=== PATIENT | female | born 1960 | race African-American/Black ===

== ENCOUNTER 2018-11-16 20:59 | Inpatient (IN) ==
[2018-11-17 01:23] LABS: Basophils # 0.1 10*3/uL (0.0-0.2); Basophils % 0.6 % (0.0-0.8); Eosinophils # 0.2 10*3/uL (0.0-0.87); Eosinophils % 1.9 % (0.00-10.9); Hematocrit 31.4 VOL% (35.7-47.0); Hemoglobin 9.2 GM/DL (12.0-16.0); Immature Granulocytes % 0.9 %; Immature Granulocytes Absolute 0.08 #; Lymphocytes # 1.3 10*3/uL (1.4-4.0); Lymphocytes % 14.1 % (21.3-54.2); Mean Corpuscular HGB Conc 29.3 GM/DL (32-36); Mean Corpuscular Volume 100.3 FL (87-102); Mean Platelet Volume 10.3 FL (9.6-12.0); Monocytes % 10.3 % (1.7-12.7); NRBC # 0.02 10*3/uL; Neutrophils % 72.2 % (38.7-73.9); Platelet Count 365 T/CUMM (130-400); Red Blood Count 3.13 MC/CUMM (3.8-5.5); Red Cell Distribution Width 16.8 % (9.3-17.3)
[2018-11-17 01:32] LABS: PT Patient Result 10.8 SECS; Partial Thromboplastin Time 28.2 SECS (0-40)
[2018-11-17 01:59] LABS: Albumin 2.8 G/DL (3.4-5.0); Bilirubin,Total 0.4 MG/DL (0.2-1.0); Calcium 8.6 MG/DL (8.5-10.1); Osmolality,Calculated 292.3 MOS/KG (273-304)
[2018-11-17] MEDS ORDERED: ONDANSETRON 4 MG/2 ML VIAL IV PRN (04:06)
[2018-11-17] MEDS ORDERED: NICOTINE 21 MG/24 HR PATCH TRANSDERM PRN (04:06)
[2018-11-17] MEDS ORDERED: diphenhydrAMINE CAP 25 MG CAPSULE PO PRN (04:06)
[2018-11-17] MEDS ORDERED: DEXTROSE 50% 25 GM/50 ML VIAL IV PRN (05:51)
[2018-11-17] MEDS ORDERED: GLUCAGON 1 MG VIAL IM PRN (05:51)
[2018-11-17] MEDS: VANCOMYCIN INJ 1,500 MG in SODIUM CHLORIDE 0.9% 500 ML IV SCH (06:40)
[2018-11-17] MEDS: CARVEDILOL 25 MG TABLET PO SCH ×3 (08:48→20:38)
[2018-11-17] MEDS: FERROUS SULFATE 325 MG TABLET PO SCH ×2 (08:48→20:35)
[2018-11-17] MEDS: ISOSORBIDE MONONITRATE 30 MG TABLET PO SCH (08:48)
[2018-11-17] MEDS: INSULIN REGULAR 100 UNIT/ML SUBCUT SCH ×4 (08:49→20:35)
[2018-11-17] MEDS ORDERED: POTASSIUM CHLORIDE 20 MEQ TABLET PO SCH (09:00)
[2018-11-17] MEDS ORDERED: LISINOPRIL 20 MG TABLET PO SCH (09:00)
[2018-11-17] MEDS ORDERED: ALLOPURINOL 100 MG TABLET PO SCH (09:00)
[2018-11-17] MEDS: traMADol 50 MG TABLET PO PRN (11:43)
[2018-11-17] MEDS ORDERED: SODIUM CHLORIDE 0.45% 500 ML IV ONE (13:54)
[2018-11-17] MEDS: ATORVASTATIN 80 MG TABLET PO SCH (20:35)
[2018-11-17] MEDS ORDERED: INSULIN GLARGINE 100 UNIT/ML SUBCUT SCH (21:00)
[2018-11-18 05:13] LABS: Basophils % 0.4 % (0.0-0.8); Eosinophils # 0.2 10*3/uL (0.0-0.87); Eosinophils % 2.1 % (0.00-10.9); Hematocrit 19.9 VOL% (35.7-47.0); Immature Granulocytes % 0.8 %; Immature Granulocytes Absolute 0.08 #; Lymphocytes # 1.7 10*3/uL (1.4-4.0); Lymphocytes % 17.7 % (21.3-54.2); Mean Corpuscular HGB Conc 28.6 GM/DL (32-36); Mean Platelet Volume 9.8 FL (9.6-12.0); Monocytes % 11.3 % (1.7-12.7); NRBC # 0.02 10*3/uL; Neutrophils % 67.7 % (38.7-73.9); Platelet Count 380 T/CUMM (130-400); Red Blood Count 1.97 MC/CUMM (3.8-5.5); Red Cell Distribution Width 17.1 % (9.3-17.3); White Blood Count 9.5 T/CUMM (4-12)
[2018-11-18 05:27] LABS: Hemoglobin 5.7 GM/DL (12.0-16.0)
[2018-11-18 05:46] LABS: Albumin 2.2 G/DL (3.4-5.0); Bilirubin,Total 0.9 MG/DL (0.2-1.0); Calcium 8.4 MG/DL (8.5-10.1); Osmolality,Calculated 286.3 MOS/KG (273-304); Total Protein 7.4 G/DL (6.4-8.3)
[2018-11-18 06:43] LABS: Hypochromasia 1+
[2018-11-18 06:44] LABS: Platelet Estimate Adequate
[2018-11-18 06:52] LABS: Hematocrit 20.3 VOL% (35.7-47.0)
[2018-11-18] MEDS: VANCOMYCIN INJ 1,500 MG in SODIUM CHLORIDE 0.9% 500 ML IV SCH (07:02)
[2018-11-18] MEDS ORDERED: SODIUM CHLORIDE 0.9% 1,000 ML IV PRN (07:46)
[2018-11-18] MEDS: INSULIN REGULAR 100 UNIT/ML SUBCUT SCH ×4 (08:26→20:47)
[2018-11-18] MEDS: CARVEDILOL 25 MG TABLET PO SCH ×2 (08:26→20:41)
[2018-11-18] MEDS: ISOSORBIDE MONONITRATE 30 MG TABLET PO SCH (08:26)
[2018-11-18] MEDS: FERROUS SULFATE 325 MG TABLET PO SCH ×2 (08:27→20:41)
[2018-11-18] MEDS ORDERED: cefTRIAXone 1,000 MG in SYRINGE 1 EACH IV SCH (14:00)
[2018-11-18] MEDS ORDERED: SODIUM CHLORIDE 0.9% 250 ML IV ONE (14:37)
[2018-11-18] MEDS ORDERED: ENOXAPARIN 40 MG/0.4 ML SYRINGE SUBCUT SCH (15:00)
[2018-11-18] MEDS: traMADol 50 MG TABLET PO PRN (20:41)
[2018-11-18] MEDS: ATORVASTATIN 80 MG TABLET PO SCH (20:41)
[2018-11-18] MEDS ORDERED: SERTRALINE 25 MG TABLET PO SCH (21:00)
[2018-11-19 03:53] LABS: Basophils # 0.1 10*3/uL (0.0-0.2); Basophils % 0.7 % (0.0-0.8); Eosinophils # 0.3 10*3/uL (0.0-0.87); Eosinophils % 2.8 % (0.00-10.9); Hematocrit 26.7 VOL% (35.7-47.0); Immature Granulocytes % 1.5 %; Immature Granulocytes Absolute 0.16 #; Lymphocytes # 1.5 10*3/uL (1.4-4.0); Lymphocytes % 13.8 % (21.3-54.2); Mean Corpuscular Volume 97.1 FL (87-102); Mean Platelet Volume 10.5 FL (9.6-12.0); Monocytes % 9.4 % (1.7-12.7); NRBC # 0.06 10*3/uL; Neutrophils % 71.8 % (38.7-73.9); Platelet Count 390 T/CUMM (130-400); Red Blood Count 2.75 MC/CUMM (3.8-5.5); Red Cell Distribution Width 17.9 % (9.3-17.3); White Blood Count 10.7 T/CUMM (4-12)
[2018-11-19 04:08] LABS: Calcium 8.6 MG/DL (8.5-10.1); Osmolality,Calculated 283.4 MOS/KG (273-304)
[2018-11-19] MEDS: INSULIN REGULAR 100 UNIT/ML SUBCUT SCH ×2 (09:09→12:41)
[2018-11-19] MEDS: ISOSORBIDE MONONITRATE 30 MG TABLET PO SCH (09:33)
[2018-11-19] MEDS: FERROUS SULFATE 325 MG TABLET PO SCH (09:34)
[2018-11-19] MEDS: CARVEDILOL 25 MG TABLET PO SCH (09:34)
[2018-11-19] MEDS: traMADol 50 MG TABLET PO PRN (09:34)
[2018-11-19 12:13] VITALS: BP 149/86
== END 2018-11-19 13:09 | disposition home or self-care (01) | DRG 603 ==
LOC: N.EDINP 20:59 → N.ED 20:59 → N.5E 11-17 04:29
PROVIDERS: ADMIT Internal Medicine; ATTEND Internal Medicine

== ENCOUNTER 2019-09-17 16:08 | Observation (INO) ==
[2019-09-17] MEDS ORDERED: ONDANSETRON 4 MG/2 ML VIAL IV STA (16:34)
[2019-09-17] MEDS ORDERED: FUROSEMIDE 40 MG/4 ML VIAL IV STA ×2 (16:34→16:42)
[2019-09-17] MEDS ORDERED: ALBUTEROL/IPRATROPIUM 3 ML NEB RESP TX STA (16:34)
[2019-09-17 16:57] LABS: Alanine Aminotransferase 41 U/L (13-56); Albumin 2.5 G/DL (3.4-5.0); Alkaline Phosphatase 214 U/L (45-117); Aspartate Amino Transferase 25 U/L (0-37); Bilirubin,Total < 0.39 MG/DL (0.2-1.0); Blood Urea Nitrogen 31 MG/DL (7-18); Calcium 8.4 MG/DL (8.5-10.1); Estimated Glom Filtration Rate 45 ML/MIN; Glucose 257 MG/DL (74-106); Osmolality,Calculated 296.3 MOS/KG (273-304); Total Protein 6.9 G/DL (6.4-8.3)
[2019-09-17] MEDS ORDERED: NITROGLYCERIN 2% OINT 1 INCH/GM PACK TOP STA (17:02)
[2019-09-17 17:19] LABS: Troponin I 0.109 NG/ML (0.00-0.045)
[2019-09-17] MEDS ORDERED: hydrALAZINE 20 MG/1 ML VIAL IV STA (17:44)
[2019-09-17 18:01] LABS: Basophils % 0.3 % (0.0-0.8); Eosinophils # 0.1 10*3/uL (0.0-0.87); Eosinophils % 1.4 % (0.00-10.9); Hematocrit 29.4 VOL% (35.7-47.0); Hemoglobin 8.9 GM/DL (12.0-16.0); Immature Granulocytes % 0.4 %; Immature Granulocytes Absolute 0.04 #; Lymphocytes # 1.4 10*3/uL (1.4-4.0); Lymphocytes % 14.5 % (21.3-54.2); Mean Corpuscular HGB Conc 30.3 GM/DL (32-36); Mean Corpuscular Volume 103.2 FL (87-102); Mean Platelet Volume 11.3 FL (9.6-12.0); Monocytes % 5.4 % (1.7-12.7); Platelet Count 220 T/CUMM (130-400); Red Blood Count 2.85 MC/CUMM (3.8-5.5); Red Cell Distribution Width 13.1 % (9.3-17.3); White Blood Count 9.6 T/CUMM (4-12)
[2019-09-17 18:11] LABS: INR 0.9; PT Patient Result 10.3 SECS (9.6-12.2)
[2019-09-17] MEDS ORDERED: ONDANSETRON 4 MG/2 ML VIAL IV PRN (18:17)
[2019-09-17] MEDS ORDERED: ACETAMINOPHEN 500 MG TABLET PO PRN (18:17)
[2019-09-17] MEDS ORDERED: GLUCAGON 1 MG VIAL IM PRN (18:17)
[2019-09-17] MEDS ORDERED: DEXTROSE 10% 250 ML BAG IV PRN (18:17)
[2019-09-17 19:06] LABS: Apearance,Urine CLEAR (Clear); Bilirubin,Urine Negative (Negative); Blood, Urine Small mg/dL (Negative); Glucose,Urine (UA) 150 mg/dL (Negative); Hyaline Casts,Urine 1 /LPF (0-3); Ketones,Urine Negative (Negative); Nitrite,Urine Negative (Negative); Protein,Urine 100 MG/DL; RBC,Urine 9 /HPF (0-4); Urine Color Straw (Yellow); Urine Urobilinogen < 2.0 EU/DL (0.2-1.0); WBC,Urine 1 /HPF (0-6)
[2019-09-17] MEDS: ALBUTEROL/IPRATROPIUM 3 ML NEB RESP TX SCH (19:47)
[2019-09-17] MEDS: POTASSIUM CHLORIDE 20 MEQ TABLET PO SCH (21:34)
[2019-09-17] MEDS: INSULIN REGULAR 100 UNIT/ML SUBCUT SCH (21:34)
[2019-09-17] MEDS: carvediloL 25 MG TABLET PO SCH (21:34)
[2019-09-17] MEDS: MAGNESIUM OXIDE 400 MG TABLET PO SCH (21:34)
[2019-09-17] MEDS: FERROUS SULFATE 325 MG TABLET PO SCH (21:34)
[2019-09-17] MEDS: ATORVASTATIN 80 MG TABLET PO SCH (21:34)
[2019-09-17 22:50] LABS: Barbiturates Screen,Urine Negative (Negative); Benzodiazepines Screen,Urine Negative (Negative); Cannabinoid Screen,Urine Negative (Negative); Opiate Screen,Urine Negative (Negative); Phencyclidine Screen,Urine Negative (Negative)
[2019-09-18] MEDS: NITROGLYCERIN 2% OINT 1 INCH/GM PACK TOP SCH ×4 (00:06→18:22)
[2019-09-18] MEDS: ALBUTEROL/IPRATROPIUM 3 ML NEB RESP TX SCH ×4 (00:22→20:57)
[2019-09-18 05:57] LABS: Blood Urea Nitrogen 34 MG/DL (7-18); Calcium 8.2 MG/DL (8.5-10.1); Estimated Glom Filtration Rate 41 ML/MIN; Glucose 172 MG/DL (74-106)
[2019-09-18 06:04] LABS: Troponin I 0.109 NG/ML (0.00-0.045)
[2019-09-18] MEDS: carvediloL 25 MG TABLET PO SCH ×2 (08:15→16:59)
[2019-09-18] MEDS: sitaGLIPtin 100 MG TABLET PO SCH (08:16)
[2019-09-18] MEDS: lisinopriL 20 MG TABLET PO SCH (08:16)
[2019-09-18] MEDS: PANTOPRAZOLE 40 MG TABLET PO SCH (08:16)
[2019-09-18] MEDS: allopurinoL 100 MG TABLET PO SCH (08:17)
[2019-09-18] MEDS: POTASSIUM CHLORIDE 20 MEQ TABLET PO SCH ×2 (08:17→21:20)
[2019-09-18] MEDS: ASPIRIN EC 81 MG TABLET PO SCH (08:17)
[2019-09-18] MEDS: MAGNESIUM OXIDE 400 MG TABLET PO SCH ×2 (08:17→21:19)
[2019-09-18] MEDS: FERROUS SULFATE 325 MG TABLET PO SCH ×2 (08:17→21:19)
[2019-09-18] MEDS: INSULIN REGULAR 100 UNIT/ML SUBCUT SCH ×4 (08:18→21:20)
[2019-09-18] MEDS: INSULIN GLARGINE 100 UNIT/ML SUBCUT SCH (08:18)
[2019-09-18] MEDS: FUROSEMIDE 40 MG/4 ML VIAL IV SCH ×2 (08:18→16:55)
[2019-09-18] MEDS: ISOSORBIDE MONONITRATE 30 MG TABLET PO SCH (09:09)
[2019-09-18] MEDS: ATORVASTATIN 80 MG TABLET PO SCH (21:19)
[2019-09-19] MEDS: NITROGLYCERIN 2% OINT 1 INCH/GM PACK TOP SCH ×4 (01:08→18:24)
[2019-09-19] MEDS: ALBUTEROL/IPRATROPIUM 3 ML NEB RESP TX SCH ×4 (01:59→20:12)
[2019-09-19 04:21] LABS: Calcium 8.3 MG/DL (8.5-10.1); Osmolality,Calculated 296.8 MOS/KG (273-304)
[2019-09-19] MEDS: INSULIN REGULAR 100 UNIT/ML SUBCUT SCH ×4 (08:01→20:44)
[2019-09-19] MEDS: lisinopriL 20 MG TABLET PO SCH (08:44)
[2019-09-19] MEDS: FUROSEMIDE 40 MG/4 ML VIAL IV SCH (08:44)
[2019-09-19] MEDS: FERROUS SULFATE 325 MG TABLET PO SCH ×2 (08:45→20:41)
[2019-09-19] MEDS: carvediloL 25 MG TABLET PO SCH ×2 (08:45→17:35)
[2019-09-19] MEDS: ISOSORBIDE MONONITRATE 30 MG TABLET PO SCH (08:45)
[2019-09-19] MEDS: MAGNESIUM OXIDE 400 MG TABLET PO SCH ×2 (08:45→20:41)
[2019-09-19] MEDS: allopurinoL 100 MG TABLET PO SCH (08:45)
[2019-09-19] MEDS: PANTOPRAZOLE 40 MG TABLET PO SCH (08:45)
[2019-09-19] MEDS: ASPIRIN EC 81 MG TABLET PO SCH (08:45)
[2019-09-19] MEDS: sitaGLIPtin 100 MG TABLET PO SCH (08:45)
[2019-09-19] MEDS: POTASSIUM CHLORIDE 20 MEQ TABLET PO SCH ×2 (08:45→20:41)
[2019-09-19] MEDS: INSULIN GLARGINE 100 UNIT/ML SUBCUT SCH (13:13)
[2019-09-19] MEDS: ATORVASTATIN 80 MG TABLET PO SCH (20:41)
[2019-09-20] MEDS: ALBUTEROL/IPRATROPIUM 3 ML NEB RESP TX SCH ×3 (01:09→14:24)
[2019-09-20 04:18] LABS: Basophils % 0.4 % (0.0-0.8); Eosinophils # 0.2 10*3/uL (0.0-0.87); Eosinophils % 2.6 % (0.00-10.9); Hematocrit 27.6 VOL% (35.7-47.0); Hemoglobin 8.4 GM/DL (12.0-16.0); Immature Granulocytes % 0.3 %; Immature Granulocytes Absolute 0.02 #; Lymphocytes # 1.8 10*3/uL (1.4-4.0); Lymphocytes % 23.7 % (21.3-54.2); Mean Corpuscular HGB Conc 30.4 GM/DL (32-36); Mean Platelet Volume 11.7 FL (9.6-12.0); Monocytes % 8.2 % (1.7-12.7); Neutrophils % 64.8 % (38.7-73.9); Platelet Count 213 T/CUMM (130-400); Red Blood Count 2.68 MC/CUMM (3.8-5.5); Red Cell Distribution Width 13.3 % (9.3-17.3); White Blood Count 7.7 T/CUMM (4-12)
[2019-09-20 04:38] LABS: Calcium 8.6 MG/DL (8.5-10.1); Osmolality,Calculated 293.1 MOS/KG (273-304)
[2019-09-20] MEDS: NITROGLYCERIN 2% OINT 1 INCH/GM PACK TOP SCH ×2 (06:06)
[2019-09-20] MEDS: INSULIN REGULAR 100 UNIT/ML SUBCUT SCH ×2 (07:57→11:42)
[2019-09-20] MEDS ORDERED: NITROGLYCERIN SL 0.4 MG TABLET SL PRN (08:48)
[2019-09-20] MEDS: MAGNESIUM OXIDE 400 MG TABLET PO SCH (08:57)
[2019-09-20] MEDS: POTASSIUM CHLORIDE 20 MEQ TABLET PO SCH (08:57)
[2019-09-20] MEDS: ISOSORBIDE MONONITRATE 30 MG TABLET PO SCH (08:57)
[2019-09-20] MEDS: lisinopriL 20 MG TABLET PO SCH (08:57)
[2019-09-20] MEDS: PANTOPRAZOLE 40 MG TABLET PO SCH (08:57)
[2019-09-20] MEDS: sitaGLIPtin 100 MG TABLET PO SCH (08:57)
[2019-09-20] MEDS: ASPIRIN EC 81 MG TABLET PO SCH (08:57)
[2019-09-20] MEDS: INSULIN GLARGINE 100 UNIT/ML SUBCUT SCH (08:58)
[2019-09-20] MEDS: carvediloL 25 MG TABLET PO SCH (08:58)
[2019-09-20] MEDS: FERROUS SULFATE 325 MG TABLET PO SCH (08:58)
[2019-09-20] MEDS: allopurinoL 100 MG TABLET PO SCH (08:58)
[2019-09-20] MEDS ORDERED: FUROSEMIDE 40 MG TABLET PO SCH (09:00)
[2019-09-20] MEDS ORDERED: hydrALAZINE 25 MG TABLET PO SCH (09:46)
[2019-09-20 16:00] VITALS: BP 168/74
== END 2019-09-20 15:46 | disposition home or self-care (01) ==
LOC: N.EDINP 16:08 → N.ED 16:08 → N.TELES 20:10
PROVIDERS: ADMIT Family Medicine; ATTEND Family Medicine

== ENCOUNTER 2019-12-22 12:34 | Observation (INO) ==
[2019-12-22] MEDS ORDERED: FUROSEMIDE 40 MG/4 ML VIAL IV STA (13:18)
[2019-12-22] MEDS ORDERED: amLODIPine 5 MG TABLET PO STA (14:07)
[2019-12-22 14:09] LABS: Basophils # 0.1 10*3/uL (0.0-0.2); Basophils % 0.6 % (0.0-0.8); Eosinophils # 0.2 10*3/uL (0.0-0.87); Eosinophils % 2.4 % (0.00-10.9); Hematocrit 35.3 VOL% (35.7-47.0); Hemoglobin 10.9 GM/DL (12.0-16.0); Immature Granulocytes % 0.4 %; Immature Granulocytes Absolute 0.04 #; Lymphocytes # 1.1 10*3/uL (1.4-4.0); Lymphocytes % 11.4 % (21.3-54.2); Mean Corpuscular HGB Conc 30.9 GM/DL (32-36); Mean Platelet Volume 11.4 FL (9.6-12.0); Monocytes % 5.5 % (1.7-12.7); Neutrophils % 79.7 % (38.7-73.9); Platelet Count 293 T/CUMM (130-400); Red Blood Count 3.53 MC/CUMM (3.8-5.5); Red Cell Distribution Width 13.9 % (9.3-17.3); White Blood Count 9.5 T/CUMM (4-12)
[2019-12-22] MEDS ORDERED: DEXTROSE 10% 250 ML BAG IV PRN ×2 (14:09→16:29)
[2019-12-22] MEDS ORDERED: GLUCAGON 1 MG VIAL IM PRN (14:09)
[2019-12-22] MEDS ORDERED: ONDANSETRON 4 MG/2 ML VIAL IV PRN (14:09)
[2019-12-22] MEDS ORDERED: ACETAMINOPHEN 325 MG TABLET PO PRN (14:09)
[2019-12-22 14:50] LABS: Albumin 2.4 G/DL (3.4-5.0); Bilirubin,Total 0.4 MG/DL (0.2-1.0); Osmolality,Calculated 295.5 MOS/KG (273-304); Total Protein 6.9 G/DL (6.4-8.3)
[2019-12-22] MEDS ORDERED: hydrALAZINE 20 MG/1 ML VIAL IV ONE (16:09)
[2019-12-22] MEDS ORDERED: NITROGLYCERIN SL 0.4 MG TABLET SL PRN (16:27)
[2019-12-22] MEDS ORDERED: hydrALAZINE 20 MG/1 ML VIAL IV PRN (16:28)
[2019-12-22] MEDS ORDERED: traMADol 50 MG TABLET PO PRN (16:28)
[2019-12-22] MEDS ORDERED: MAGNESIUM SULF RIDER 2 GM in PREMIX 1 EACH IV PRN (16:29)
[2019-12-22] MEDS ORDERED: POTASSIUM CHLORIDE RIDER 10 MEQ in PREMIX 1 EACH IV PRN (16:29)
[2019-12-22] MEDS ORDERED: POTASSIUM CHLORIDE 20 MEQ TABLET PO PRN (16:29)
[2019-12-22] MEDS ORDERED: MAGNESIUM SULF RIDER 4 GM in PREMIX 1 EACH IV PRN (16:29)
[2019-12-22] MEDS: INSULIN REGULAR 100 UNIT/ML SUBCUT SCH ×2 (16:30→21:59)
[2019-12-22] MEDS: hydrALAZINE 25 MG TABLET PO SCH (21:58)
[2019-12-22] MEDS: DOCUSATE SODIUM 100 MG CAPSULE PO SCH (21:58)
[2019-12-22] MEDS: NON-FORMULARY MEDICATION (Isosorbide Mononitrate 10 MG) PO SCH (21:59)
[2019-12-22] MEDS: FUROSEMIDE 40 MG/4 ML VIAL IV SCH (21:59)
[2019-12-22] MEDS: carvediloL 25 MG TABLET PO SCH (21:59)
[2019-12-22] MEDS: ATORVASTATIN 80 MG TABLET PO SCH (22:00)
[2019-12-22] MEDS: MAGNESIUM OXIDE 400 MG TABLET PO SCH (22:00)
[2019-12-23 04:43] LABS: Apearance,Urine CLEAR (Clear); Bacteria,Urine Many /HPF (Few); Bilirubin,Urine Negative (Negative); Blood, Urine Small mg/dL (Negative); Glucose,Urine (UA) >=500 mg/dL (Negative); Hyaline Casts,Urine 3 /LPF (0-3); Ketones,Urine Negative (Negative); Mucus,Urine Occasional /LPF (Occasional); Nitrite,Urine Negative (Negative); Protein,Urine >=500 MG/DL; RBC,Urine 6 /HPF (0-4); Squamous Epithelial Cell,Urine Occasional /HPF (0-10); Urine Color Yellow (Yellow); Urine Specific Gravity 1.009 (1.001-1.035); Urine Urobilinogen < 2.0 EU/DL (0.2-1.0); WBC,Urine 1 /HPF (0-6)
[2019-12-23 04:45] LABS: Basophils # 0.1 10*3/uL (0.0-0.2); Basophils % 0.7 % (0.0-0.8); Eosinophils # 0.2 10*3/uL (0.0-0.87); Eosinophils % 2.7 % (0.00-10.9); Hematocrit 27.8 VOL% (35.7-47.0); Hemoglobin 8.5 GM/DL (12.0-16.0); Immature Granulocytes % 0.4 %; Immature Granulocytes Absolute 0.03 #; Mean Corpuscular HGB Conc 30.6 GM/DL (32-36); Mean Corpuscular Volume 101.1 FL (87-102); Mean Platelet Volume 11.7 FL (9.6-12.0); Monocytes % 8.4 % (1.7-12.7); Neutrophils % 74.8 % (38.7-73.9); Platelet Count 240 T/CUMM (130-400); Red Blood Count 2.75 MC/CUMM (3.8-5.5); White Blood Count 7.6 T/CUMM (4-12)
[2019-12-23 05:12] LABS: Calcium 7.7 MG/DL (8.5-10.1); Osmolality,Calculated 296.1 MOS/KG (273-304); Thyroid Stimulating Hormone 2.46 uIU/ml (0.358-3.74)
[2019-12-23] MEDS: THYROID 60 MG TABLET PO SCH (06:38)
[2019-12-23] MEDS: INSULIN GLARGINE 100 UNIT/ML SUBCUT SCH (09:03)
[2019-12-23] MEDS: FUROSEMIDE 40 MG/4 ML VIAL IV SCH ×2 (09:03→22:04)
[2019-12-23] MEDS: INSULIN REGULAR 100 UNIT/ML SUBCUT SCH ×4 (09:03→22:03)
[2019-12-23] MEDS: hydrALAZINE 25 MG TABLET PO SCH ×3 (09:04→22:03)
[2019-12-23] MEDS: NON-FORMULARY MEDICATION (Isosorbide Mononitrate 10 MG) PO SCH (09:04)
[2019-12-23] MEDS: MAGNESIUM OXIDE 400 MG TABLET PO SCH ×2 (09:05→22:03)
[2019-12-23] MEDS: allopurinoL 100 MG TABLET PO SCH (09:05)
[2019-12-23] MEDS: DOCUSATE SODIUM 100 MG CAPSULE PO SCH ×2 (09:05→22:03)
[2019-12-23] MEDS: sitaGLIPtin 25 MG TABLET PO SCH (09:05)
[2019-12-23] MEDS: PANTOPRAZOLE 40 MG TABLET PO SCH (09:05)
[2019-12-23] MEDS: carvediloL 25 MG TABLET PO SCH ×2 (09:05→22:03)
[2019-12-23] MEDS ORDERED: MAGNESIUM SULF RIDER 2 GM in PREMIX 1 EACH IV ONE (09:57)
[2019-12-23] MEDS ORDERED: POTASSIUM CHLORIDE 20 MEQ TABLET PO ONE (09:57)
[2019-12-23] MEDS: ASPIRIN EC 81 MG TABLET PO SCH (13:43)
[2019-12-23] MEDS: ISOSORBIDE MONONITRATE 20 MG TABLET PO SCH (16:44)
[2019-12-23 16:48] LABS: Hematocrit 28.4 VOL% (35.7-47.0); Hemoglobin 8.6 GM/DL (12.0-16.0)
[2019-12-23] MEDS: ATORVASTATIN 80 MG TABLET PO SCH (22:03)
[2019-12-24 06:31] LABS: Total Protein (Chem) 5.9 G/DL (6.4-8.3)
[2019-12-24] MEDS: THYROID 60 MG TABLET PO SCH (06:45)
[2019-12-24 07:45] LABS: Basophils % 0.4 % (0.0-0.8); Eosinophils # 0.3 10*3/uL (0.0-0.87); Eosinophils % 4.2 % (0.00-10.9); Hematocrit 28.2 VOL% (35.7-47.0); Hemoglobin 8.3 GM/DL (12.0-16.0); Immature Granulocytes % 0.4 %; Immature Granulocytes Absolute 0.03 #; Lymphocytes # 1.2 10*3/uL (1.4-4.0); Lymphocytes % 15.4 % (21.3-54.2); Mean Corpuscular HGB Conc 29.4 GM/DL (32-36); Mean Corpuscular Volume 102.9 FL (87-102); Mean Platelet Volume 11.7 FL (9.6-12.0); Neutrophils % 71.6 % (38.7-73.9); Platelet Count 231 T/CUMM (130-400); Red Blood Count 2.74 MC/CUMM (3.8-5.5); Red Cell Distribution Width 14.3 % (9.3-17.3); White Blood Count 7.7 T/CUMM (4-12)
[2019-12-24] MEDS: INSULIN GLARGINE 100 UNIT/ML SUBCUT SCH (08:24)
[2019-12-24] MEDS: INSULIN REGULAR 100 UNIT/ML SUBCUT SCH ×2 (08:25→11:34)
[2019-12-24] MEDS: MAGNESIUM OXIDE 400 MG TABLET PO SCH (08:25)
[2019-12-24] MEDS: DOCUSATE SODIUM 100 MG CAPSULE PO SCH (08:25)
[2019-12-24] MEDS: PANTOPRAZOLE 40 MG TABLET PO SCH (08:25)
[2019-12-24] MEDS: allopurinoL 100 MG TABLET PO SCH (08:25)
[2019-12-24] MEDS: ISOSORBIDE MONONITRATE 20 MG TABLET PO SCH (08:25)
[2019-12-24] MEDS: sitaGLIPtin 25 MG TABLET PO SCH (08:25)
[2019-12-24] MEDS: hydrALAZINE 25 MG TABLET PO SCH (08:26)
[2019-12-24] MEDS: FUROSEMIDE 40 MG/4 ML VIAL IV SCH (08:26)
[2019-12-24] MEDS: carvediloL 25 MG TABLET PO SCH (08:26)
[2019-12-24] MEDS: ASPIRIN EC 81 MG TABLET PO SCH (08:26)
[2019-12-24 11:18] VITALS: BP 139/75
[2019-12-24 11:24] LABS: Albumin (SPE) 2.7 G/DL (3.2-5.3); Albumin (SPE) Rel % 45.3 %; Alpha 1 (SPE) 0.3 G/DL (0.1-0.4); Alpha 1 (SPE) Rel % 4.8 %; Alpha 2 (SPE) 1.1 G/DL (0.4-1.0); Alpha 2 (SPE) Rel % 18.9 %; Beta (SPE) 0.9 G/DL (0.5-1.1); Beta (SPE) Rel % 15.6 %; Gamma (SPE) 0.9 G/DL (0.7-1.7); Gamma (SPE) Rel % 15.4 %
== END 2019-12-24 14:19 | disposition home or self-care (01) ==
LOC: N.EDINP 12:34 → N.ED 12:34 → N.EDINP 14:45 → N.TELEN 15:04
PROVIDERS: ADMIT Family Medicine; ATTEND Family Medicine

== ENCOUNTER 2020-01-14 11:21 | Inpatient (IN) ==
[2020-01-14] MEDS ORDERED: ALBUTEROL/IPRATROPIUM 3 ML NEB RESP TX STA (12:12)
[2020-01-14] MEDS ORDERED: FUROSEMIDE 100 MG/10 ML VIAL IV STA (12:12)
[2020-01-14] MEDS ORDERED: ONDANSETRON 4 MG/2 ML VIAL IV STA (12:12)
[2020-01-14 13:00] LABS: Basophils # 0.1 10*3/uL (0.0-0.2); Basophils % 0.6 % (0.0-0.8); Eosinophils # 0.2 10*3/uL (0.0-0.87); Eosinophils % 2.3 % (0.00-10.9); Hematocrit 28.1 VOL% (35.7-47.0); Hemoglobin 8.9 GM/DL (12.0-16.0); Immature Granulocytes % 0.2 %; Immature Granulocytes Absolute 0.02 #; Lymphocytes # 1.4 10*3/uL (1.4-4.0); Lymphocytes % 16.1 % (21.3-54.2); Mean Corpuscular HGB Conc 31.7 GM/DL (32-36); Mean Corpuscular Volume 98.3 FL (87-102); Mean Platelet Volume 11.8 FL (9.6-12.0); Monocytes % 7.1 % (1.7-12.7); Neutrophils % 73.7 % (38.7-73.9); Platelet Count 249 T/CUMM (130-400); Red Blood Count 2.86 MC/CUMM (3.8-5.5); Red Cell Distribution Width 14.6 % (9.3-17.3); White Blood Count 8.6 T/CUMM (4-12)
[2020-01-14 13:13] LABS: PT Patient Result 10.9 SECS (9.8-11.9); Partial Thromboplastin Time 24.7 SECS (23.9-33.8)
[2020-01-14 13:23] LABS: Apearance,Urine Slightly Hazy (Clear); Bacteria,Urine Many /HPF (Few); Bilirubin,Urine Negative (Negative); Blood, Urine Small mg/dL (Negative); Glucose,Urine (UA) >=500 mg/dL (Negative); Ketones,Urine Negative (Negative); Mucus,Urine Occasional /LPF (Occasional); Nitrite,Urine Positive (Negative); Protein,Urine >=500 MG/DL; RBC,Urine 6 /HPF (0-4); Squamous Epithelial Cell,Urine Occasional /HPF (0-10); Urine Color Yellow (Yellow); Urine Specific Gravity 1.012 (1.001-1.035); Urine Urobilinogen < 2.0 EU/DL (0.2-1.0); WBC,Urine 87 /HPF (0-6)
[2020-01-14 13:28] LABS: Barbiturates Screen,Urine Negative (Negative); Benzodiazepines Screen,Urine Negative (Negative); Cannabinoid Screen,Urine Negative (Negative); Opiate Screen,Urine Negative (Negative); Phencyclidine Screen,Urine Negative (Negative)
[2020-01-14 13:34] LABS: Alanine Aminotransferase 18 U/L (13-56); Albumin 1.7 G/DL (3.4-5.0); Alkaline Phosphatase 156 U/L (45-117); Aspartate Amino Transferase 25 U/L (0-37); Bilirubin,Total < 0.39 MG/DL (0.2-1.0); Blood Urea Nitrogen 30 MG/DL (7-18); Calcium 6.9 MG/DL (8.5-10.1); Estimated Glom Filtration Rate 23 ML/MIN; Ferritin 420.1 ng/ml (8-252); Glucose 215 MG/DL (74-106); Osmolality,Calculated 301.6 MOS/KG (273-304); Total Protein 5.3 G/DL (6.4-8.3); Troponin I 0.039 NG/ML (0.00-0.045)
[2020-01-14] MEDS ORDERED: ONDANSETRON 4 MG/2 ML VIAL IV PRN (14:02)
[2020-01-14] MEDS ORDERED: ACETAMINOPHEN 500 MG TABLET PO PRN (14:02)
[2020-01-14] MEDS ORDERED: GLUCAGON 1 MG VIAL IM PRN (14:02)
[2020-01-14] MEDS ORDERED: DEXTROSE 50% 25 GM/50 ML VIAL IV PRN (14:02)
[2020-01-14] MEDS ORDERED: FUROSEMIDE 40 MG/4 ML VIAL IV SCH (16:00)
[2020-01-14] MEDS ORDERED: NITROGLYCERIN SL 0.4 MG TABLET SL PRN (16:06)
[2020-01-14] MEDS ORDERED: CIPROFLOXACIN INJ 400 MG in PREMIX 1 EACH IV SCH (17:00)
[2020-01-14] MEDS: INSULIN REGULAR 100 UNIT/ML SUBCUT SCH ×2 (17:25→21:26)
[2020-01-14] MEDS ORDERED: cloNIDine 0.1 MG TABLET PO ONE (18:13)
[2020-01-14] MEDS ORDERED: POTASSIUM CHLORIDE 10 MEQ TABLET PO ONE (18:16)
[2020-01-14] MEDS: ALBUTEROL/IPRATROPIUM 3 ML NEB RESP TX SCH (20:26)
[2020-01-14] MEDS ORDERED: hydrALAZINE 20 MG/1 ML VIAL IV PRN (20:41)
[2020-01-14] MEDS ORDERED: ISOSORBIDE MONONITRATE 20 MG TABLET PO SCH (21:00)
[2020-01-14] MEDS: hydrALAZINE 25 MG TABLET PO SCH (21:25)
[2020-01-14] MEDS: ATORVASTATIN 80 MG TABLET PO SCH (21:25)
[2020-01-14] MEDS: carvediloL 25 MG TABLET PO SCH (21:25)
[2020-01-14] MEDS: ISOSORBIDE MONONITRATE 20 MG TABLET PO SCH (21:25)
[2020-01-14] MEDS: FERROUS SULFATE 325 MG TABLET PO SCH (21:26)
[2020-01-14] MEDS: cloNIDine 0.1 MG TABLET PO SCH (21:26)
[2020-01-14] MEDS: methylPREDNISolone SOD SUC 40 MG/1 ML VIAL IV SCH (21:41)
[2020-01-14] MEDS: cefTRIAXone 500 MG in SYRINGE 1 EACH IV SCH (21:41)
[2020-01-14] MEDS: ALBUMIN 25% 25 GM in PREMIX 1 EACH IV SCH (21:44)
[2020-01-14] MEDS: SODIUM CHLORIDE 0.45% 1,000 ML IV SCH (21:56)
[2020-01-14] MEDS: NITROGLYCERIN 0.1 MG/HR PATCH TRANSDERM SCH (23:29)
[2020-01-15] MEDS: ALBUTEROL/IPRATROPIUM 3 ML NEB RESP TX SCH ×4 (00:28→20:08)
[2020-01-15] MEDS: ALBUMIN 25% 25 GM in PREMIX 1 EACH IV SCH ×3 (04:27→23:02)
[2020-01-15 05:59] LABS: Basophils % 0.4 % (0.0-0.8); Eosinophils % 0.1 % (0.00-10.9); Hematocrit 23.4 VOL% (35.7-47.0); Hemoglobin 7.1 GM/DL (12.0-16.0); Immature Granulocytes % 0.4 %; Immature Granulocytes Absolute 0.03 #; Lymphocytes # 0.7 10*3/uL (1.4-4.0); Lymphocytes % 8.2 % (21.3-54.2); Mean Corpuscular HGB Conc 30.3 GM/DL (32-36); Mean Corpuscular Volume 102.6 FL (87-102); Mean Platelet Volume 11.5 FL (9.6-12.0); Neutrophils % 88.9 % (38.7-73.9); Platelet Count 211 T/CUMM (130-400); Red Blood Count 2.28 MC/CUMM (3.8-5.5); Red Cell Distribution Width 14.6 % (9.3-17.3); White Blood Count 7.9 T/CUMM (4-12)
[2020-01-15 06:22] LABS: Troponin I 0.026 NG/ML (0.00-0.045)
[2020-01-15 06:28] LABS: Calcium 7.2 MG/DL (8.5-10.1); Osmolality,Calculated 300.6 MOS/KG (273-304); Thyroid Stimulating Hormone 1.03 uIU/ml (0.358-3.74)
[2020-01-15] MEDS ORDERED: INSULIN GLARGINE 100 UNIT/ML SUBCUT SCH (09:00)
[2020-01-15] MEDS ORDERED: LINAGLIPTIN 5 MG PO SCH (09:00)
[2020-01-15] MEDS: hydrALAZINE 25 MG TABLET PO SCH ×3 (09:52→22:19)
[2020-01-15] MEDS: cloNIDine 0.1 MG TABLET PO SCH ×2 (09:52→22:18)
[2020-01-15] MEDS: FERROUS SULFATE 325 MG TABLET PO SCH ×2 (09:52→22:19)
[2020-01-15] MEDS: ASPIRIN EC 81 MG TABLET PO SCH (09:52)
[2020-01-15] MEDS: allopurinoL 100 MG TABLET PO SCH (09:52)
[2020-01-15] MEDS: ISOSORBIDE MONONITRATE 20 MG TABLET PO SCH ×2 (09:52→22:19)
[2020-01-15] MEDS: carvediloL 25 MG TABLET PO SCH ×2 (09:52→22:19)
[2020-01-15] MEDS: methylPREDNISolone SOD SUC 40 MG/1 ML VIAL IV SCH ×3 (09:55→23:02)
[2020-01-15] MEDS: FUROSEMIDE 20 MG/2 ML VIAL IV SCH ×2 (09:55→18:00)
[2020-01-15] MEDS: INSULIN REGULAR 100 UNIT/ML SUBCUT SCH ×4 (10:18→22:20)
[2020-01-15] MEDS: INSULIN GLARGINE 100 UNIT/ML SUBCUT SCH (10:19)
[2020-01-15] MEDS: SODIUM CHLORIDE 0.45% 1,000 ML IV SCH ×2 (10:20→12:49)
[2020-01-15] MEDS ORDERED: SODIUM CHLORIDE 0.9% 1,000 ML IV PRN (11:56)
[2020-01-15] MEDS ORDERED: POTASSIUM CHLORIDE 20 MEQ TABLET PO ONE (11:57)
[2020-01-15] MEDS ORDERED: FUROSEMIDE 20 MG/2 ML VIAL IV ONE (16:35)
[2020-01-15] MEDS: ATORVASTATIN 80 MG TABLET PO SCH (22:19)
[2020-01-15] MEDS: NITROGLYCERIN 0.1 MG/HR PATCH TRANSDERM SCH (22:19)
[2020-01-15] MEDS: cefTRIAXone 500 MG in SYRINGE 1 EACH IV SCH ×2 (22:21→23:02)
[2020-01-15] MEDS ORDERED: cefTRIAXone 500 MG VIAL IM ONE (23:03)
[2020-01-16] MEDS: ALBUTEROL/IPRATROPIUM 3 ML NEB RESP TX SCH ×4 (01:43→20:10)
[2020-01-16] MEDS: ALBUMIN 25% 25 GM in PREMIX 1 EACH IV SCH ×3 (03:12→21:38)
[2020-01-16] MEDS: ASPIRIN EC 81 MG TABLET PO SCH (08:56)
[2020-01-16] MEDS: allopurinoL 100 MG TABLET PO SCH (08:56)
[2020-01-16] MEDS: FERROUS SULFATE 325 MG TABLET PO SCH ×2 (08:57→21:28)
[2020-01-16] MEDS: POTASSIUM CHLORIDE 20 MEQ TABLET PO SCH (08:57)
[2020-01-16] MEDS: cloNIDine 0.1 MG TABLET PO SCH ×2 (08:58→21:28)
[2020-01-16] MEDS: hydrALAZINE 25 MG TABLET PO SCH ×3 (08:58→21:28)
[2020-01-16] MEDS: carvediloL 25 MG TABLET PO SCH ×2 (09:12→21:28)
[2020-01-16] MEDS: ISOSORBIDE MONONITRATE 20 MG TABLET PO SCH ×2 (09:13→21:28)
[2020-01-16 10:25] LABS: Basophils % 0.3 % (0.0-0.8); Eosinophils # 0.1 10*3/uL (0.0-0.87); Eosinophils % 1.3 % (0.00-10.9); Hematocrit 29.8 VOL% (35.7-47.0); Immature Granulocytes % 0.3 %; Immature Granulocytes Absolute 0.03 #; Lymphocytes # 1.3 10*3/uL (1.4-4.0); Mean Corpuscular HGB Conc 30.5 GM/DL (32-36); Mean Corpuscular Volume 101.4 FL (87-102); Mean Platelet Volume 11.4 FL (9.6-12.0); Monocytes % 9.1 % (1.7-12.7); Platelet Count 211 T/CUMM (130-400); Red Cell Distribution Width 16.2 % (9.3-17.3); White Blood Count 8.6 T/CUMM (4-12)
[2020-01-16 10:29] LABS: Red Blood Count 2.94 MC/CUMM (3.8-5.5)
[2020-01-16 10:30] LABS: Hemoglobin 9.1 GM/DL (12.0-16.0)
[2020-01-16] MEDS: INSULIN REGULAR 100 UNIT/ML SUBCUT SCH ×4 (10:47→21:29)
[2020-01-16] MEDS: INSULIN GLARGINE 100 UNIT/ML SUBCUT SCH (10:47)
[2020-01-16 10:51] LABS: Albumin 2.5 G/DL (3.4-5.0); Bilirubin,Total 0.4 MG/DL (0.2-1.0); Calcium 7.2 MG/DL (8.5-10.1); Osmolality,Calculated 304.4 MOS/KG (273-304); Total Protein 6.2 G/DL (6.4-8.3)
[2020-01-16] MEDS ORDERED: FUROSEMIDE 40 MG/4 ML VIAL IV ONE (11:13)
[2020-01-16] MEDS: FUROSEMIDE 20 MG/2 ML VIAL IV SCH ×2 (13:46→15:56)
[2020-01-16] MEDS: methylPREDNISolone SOD SUC 40 MG/1 ML VIAL IV SCH ×2 (13:52→21:29)
[2020-01-16] MEDS: SODIUM CHLORIDE 0.45% 1,000 ML IV SCH (14:08)
[2020-01-16] MEDS: ATORVASTATIN 80 MG TABLET PO SCH (21:28)
[2020-01-16] MEDS: cefTRIAXone 500 MG in SYRINGE 1 EACH IV SCH (21:29)
[2020-01-16] MEDS: NITROGLYCERIN 0.1 MG/HR PATCH TRANSDERM SCH (21:31)
[2020-01-17] MEDS: ALBUTEROL/IPRATROPIUM 3 ML NEB RESP TX SCH ×4 (02:48→19:20)
[2020-01-17] MEDS: SODIUM CHLORIDE 0.45% 1,000 ML IV SCH ×2 (03:20→05:29)
[2020-01-17] MEDS: ALBUMIN 25% 25 GM in PREMIX 1 EACH IV SCH ×2 (04:09→13:19)
[2020-01-17 05:26] LABS: Basophils % 0.2 % (0.0-0.8); Hematocrit 29.1 VOL% (35.7-47.0); Hemoglobin 8.8 GM/DL (12.0-16.0); Immature Granulocytes % 0.9 %; Immature Granulocytes Absolute 0.08 #; Lymphocytes # 0.4 10*3/uL (1.4-4.0); Lymphocytes % 4.8 % (21.3-54.2); Mean Corpuscular HGB Conc 30.2 GM/DL (32-36); Mean Corpuscular Volume 102.1 FL (87-102); Mean Platelet Volume 12.1 FL (9.6-12.0); Monocytes % 2.5 % (1.7-12.7); Neutrophils % 91.6 % (38.7-73.9); Platelet Count 204 T/CUMM (130-400); Red Blood Count 2.85 MC/CUMM (3.8-5.5); Red Cell Distribution Width 16.2 % (9.3-17.3); White Blood Count 9.1 T/CUMM (4-12)
[2020-01-17 06:24] LABS: Anisocytosis 1+; Lymphocytes 3 % (20-55); Microcytosis 1+; Segmented Neutrophils 95 % (50-85); Total Cells Counted 100
[2020-01-17 06:25] LABS: Platelet Estimate Normal
[2020-01-17 07:01] LABS: Calcium 7.2 MG/DL (8.5-10.1)
[2020-01-17 07:02] LABS: Albumin 3.2 G/DL (3.4-5.0); Blood Urea Nitrogen 48 MG/DL (7-18); Glucose 107 MG/DL (74-106); Osmolality,Calculated 304.4 MOS/KG (273-304)
[2020-01-17 07:05] LABS: Alanine Aminotransferase 26 U/L (13-56); Aspartate Amino Transferase 23 U/L (0-37); Estimated Glom Filtration Rate 17 ML/MIN
[2020-01-17 07:07] LABS: Bilirubin,Total < 0.39 MG/DL (0.2-1.0); Total Protein 6.7 G/DL (6.4-8.3)
[2020-01-17 07:08] LABS: Alkaline Phosphatase 138 U/L (45-117)
[2020-01-17] MEDS: INSULIN REGULAR 100 UNIT/ML SUBCUT SCH ×4 (07:49→21:30)
[2020-01-17] MEDS: FUROSEMIDE 20 MG/2 ML VIAL IV SCH (08:48)
[2020-01-17] MEDS: INSULIN GLARGINE 100 UNIT/ML SUBCUT SCH (08:49)
[2020-01-17] MEDS: ASPIRIN EC 81 MG TABLET PO SCH (08:49)
[2020-01-17] MEDS: hydrALAZINE 25 MG TABLET PO SCH ×3 (08:49→21:26)
[2020-01-17] MEDS: ISOSORBIDE MONONITRATE 20 MG TABLET PO SCH ×2 (08:49→21:26)
[2020-01-17] MEDS: carvediloL 25 MG TABLET PO SCH ×2 (08:49→21:26)
[2020-01-17] MEDS: cloNIDine 0.1 MG TABLET PO SCH ×2 (08:49→21:26)
[2020-01-17] MEDS: FERROUS SULFATE 325 MG TABLET PO SCH ×2 (08:49→21:26)
[2020-01-17] MEDS: methylPREDNISolone SOD SUC 40 MG/1 ML VIAL IV SCH ×2 (08:49→21:26)
[2020-01-17] MEDS: allopurinoL 100 MG TABLET PO SCH (08:49)
[2020-01-17] MEDS: POTASSIUM CHLORIDE 20 MEQ TABLET PO SCH (08:49)
[2020-01-17] MEDS: metOLazone 5 MG TABLET PO SCH (13:19)
[2020-01-17] MEDS: PANTOPRAZOLE 40 MG TABLET PO SCH (15:39)
[2020-01-17] MEDS: DOCUSATE SODIUM 100 MG CAPSULE PO SCH ×2 (15:39→21:26)
[2020-01-17] MEDS: FUROSEMIDE 40 MG/4 ML VIAL IV SCH (15:39)
[2020-01-17 17:19] LABS: Amorphous Crystals,Urine Occasional /HPF (Few); Apearance,Urine CLOUDY (Clear); Bacteria,Urine Occasional /HPF (Few); Bilirubin,Urine Negative (Negative); Blood, Urine Moderate mg/dL (Negative); Glucose,Urine (UA) 50 mg/dL (Negative); Hyaline Casts,Urine 29 /LPF (0-3); Ketones,Urine Negative (Negative); Mucus,Urine Occasional /LPF (Occasional); Nitrite,Urine Negative (Negative); Protein,Urine >=500 MG/DL; RBC,Urine 71 /HPF (0-4); Squamous Epithelial Cell,Urine Occasional /HPF (0-10); Urine Color Yellow (Yellow); Urine Specific Gravity 1.014 (1.001-1.035); Urine Urobilinogen < 2.0 EU/DL (0.2-1.0); WBC,Urine 15 /HPF (0-6)
[2020-01-17] MEDS: ATORVASTATIN 80 MG TABLET PO SCH (21:26)
[2020-01-17] MEDS: NITROGLYCERIN 0.1 MG/HR PATCH TRANSDERM SCH (21:27)
[2020-01-17] MEDS: cefTRIAXone 500 MG in SYRINGE 1 EACH IV SCH (21:27)
[2020-01-18] MEDS: ALBUTEROL/IPRATROPIUM 3 ML NEB RESP TX SCH ×4 (01:00→19:15)
[2020-01-18 05:15] LABS: Basophils % 0.1 % (0.0-0.8); Hematocrit 27.8 VOL% (35.7-47.0); Hemoglobin 8.5 GM/DL (12.0-16.0); Immature Granulocytes % 0.6 %; Immature Granulocytes Absolute 0.05 #; Lymphocytes # 0.5 10*3/uL (1.4-4.0); Lymphocytes % 5.6 % (21.3-54.2); Mean Corpuscular HGB Conc 30.6 GM/DL (32-36); Mean Platelet Volume 12.3 FL (9.6-12.0); Monocytes % 6.1 % (1.7-12.7); Neutrophils % 87.6 % (38.7-73.9); Platelet Count 183 T/CUMM (130-400); Red Blood Count 2.78 MC/CUMM (3.8-5.5); Red Cell Distribution Width 15.9 % (9.3-17.3); White Blood Count 8.7 T/CUMM (4-12)
[2020-01-18 05:37] LABS: Albumin 3.2 G/DL (3.4-5.0); Bilirubin,Total 0.4 MG/DL (0.2-1.0); Calcium 7.3 MG/DL (8.5-10.1); Osmolality,Calculated 304.7 MOS/KG (273-304); Total Protein 6.4 G/DL (6.4-8.3)
[2020-01-18] MEDS: INSULIN REGULAR 100 UNIT/ML SUBCUT SCH ×4 (07:34→20:37)
[2020-01-18] MEDS: FUROSEMIDE 40 MG/4 ML VIAL IV SCH ×2 (08:49→16:10)
[2020-01-18] MEDS: INSULIN GLARGINE 100 UNIT/ML SUBCUT SCH (08:49)
[2020-01-18] MEDS: DOCUSATE SODIUM 100 MG CAPSULE PO SCH ×2 (08:50→20:44)
[2020-01-18] MEDS: metOLazone 5 MG TABLET PO SCH (08:50)
[2020-01-18] MEDS: hydrALAZINE 25 MG TABLET PO SCH (08:50)
[2020-01-18] MEDS: methylPREDNISolone SOD SUC 40 MG/1 ML VIAL IV SCH ×2 (08:50→20:45)
[2020-01-18] MEDS: ASPIRIN EC 81 MG TABLET PO SCH (08:50)
[2020-01-18] MEDS: allopurinoL 100 MG TABLET PO SCH (08:50)
[2020-01-18] MEDS: POTASSIUM CHLORIDE 20 MEQ TABLET PO SCH (08:50)
[2020-01-18] MEDS: carvediloL 25 MG TABLET PO SCH ×2 (08:50→20:43)
[2020-01-18] MEDS: PANTOPRAZOLE 40 MG TABLET PO SCH (08:51)
[2020-01-18] MEDS: FERROUS SULFATE 325 MG TABLET PO SCH ×2 (08:51→20:42)
[2020-01-18] MEDS: cloNIDine 0.1 MG TABLET PO SCH ×2 (08:51→20:44)
[2020-01-18] MEDS: ISOSORBIDE MONONITRATE 20 MG TABLET PO SCH ×2 (08:51→20:44)
[2020-01-18] MEDS: ATORVASTATIN 80 MG TABLET PO SCH (20:44)
[2020-01-18] MEDS: cefTRIAXone 500 MG in SYRINGE 1 EACH IV SCH (20:53)
[2020-01-18] MEDS: NITROGLYCERIN 0.1 MG/HR PATCH TRANSDERM SCH (20:58)
[2020-01-19] MEDS: ALBUTEROL/IPRATROPIUM 3 ML NEB RESP TX SCH ×4 (00:15→19:00)
[2020-01-19 06:13] LABS: Basophils % 0.2 % (0.0-0.8); Hematocrit 29.5 VOL% (35.7-47.0); Hemoglobin 8.8 GM/DL (12.0-16.0); Immature Granulocytes % 0.7 %; Immature Granulocytes Absolute 0.07 #; Lymphocytes # 0.9 10*3/uL (1.4-4.0); Lymphocytes % 8.4 % (21.3-54.2); Mean Corpuscular HGB Conc 29.8 GM/DL (32-36); Mean Corpuscular Volume 102.8 FL (87-102); Mean Platelet Volume 12.3 FL (9.6-12.0); Monocytes % 5.3 % (1.7-12.7); Neutrophils % 85.4 % (38.7-73.9); Platelet Count 186 T/CUMM (130-400); Red Blood Count 2.87 MC/CUMM (3.8-5.5); Red Cell Distribution Width 15.6 % (9.3-17.3); White Blood Count 10.1 T/CUMM (4-12)
[2020-01-19 06:38] LABS: Calcium 7.4 MG/DL (8.5-10.1); Osmolality,Calculated 305.6 MOS/KG (273-304)
[2020-01-19] MEDS: INSULIN REGULAR 100 UNIT/ML SUBCUT SCH ×4 (08:14→21:47)
[2020-01-19] MEDS: ASPIRIN EC 81 MG TABLET PO SCH (08:45)
[2020-01-19] MEDS: carvediloL 25 MG TABLET PO SCH ×2 (08:45→20:58)
[2020-01-19] MEDS: DOCUSATE SODIUM 100 MG CAPSULE PO SCH ×2 (08:45→20:58)
[2020-01-19] MEDS: allopurinoL 100 MG TABLET PO SCH (08:46)
[2020-01-19] MEDS: POTASSIUM CHLORIDE 20 MEQ TABLET PO SCH (08:46)
[2020-01-19] MEDS: FERROUS SULFATE 325 MG TABLET PO SCH ×2 (08:47→20:58)
[2020-01-19] MEDS: ISOSORBIDE MONONITRATE 20 MG TABLET PO SCH ×2 (08:47→20:57)
[2020-01-19] MEDS: metOLazone 5 MG TABLET PO SCH (08:47)
[2020-01-19] MEDS: cloNIDine 0.1 MG TABLET PO SCH ×2 (08:48→20:58)
[2020-01-19] MEDS: PANTOPRAZOLE 40 MG TABLET PO SCH (08:48)
[2020-01-19] MEDS: methylPREDNISolone SOD SUC 40 MG/1 ML VIAL IV SCH ×2 (08:49→20:59)
[2020-01-19] MEDS: FUROSEMIDE 40 MG/4 ML VIAL IV SCH ×2 (08:49→16:23)
[2020-01-19] MEDS: INSULIN GLARGINE 100 UNIT/ML SUBCUT SCH (10:02)
[2020-01-19] MEDS: NITROGLYCERIN 0.1 MG/HR PATCH TRANSDERM SCH (20:58)
[2020-01-19] MEDS: ATORVASTATIN 80 MG TABLET PO SCH (20:58)
[2020-01-19] MEDS: cefTRIAXone 500 MG in SYRINGE 1 EACH IV SCH (20:59)
[2020-01-20] MEDS: ALBUTEROL/IPRATROPIUM 3 ML NEB RESP TX SCH ×4 (01:54→19:16)
[2020-01-20] MEDS: ASPIRIN EC 81 MG TABLET PO SCH (08:42)
[2020-01-20] MEDS: POTASSIUM CHLORIDE 20 MEQ TABLET PO SCH (08:42)
[2020-01-20] MEDS: allopurinoL 100 MG TABLET PO SCH (08:42)
[2020-01-20] MEDS: carvediloL 25 MG TABLET PO SCH (08:42)
[2020-01-20] MEDS: cloNIDine 0.1 MG TABLET PO SCH ×2 (08:42→21:58)
[2020-01-20] MEDS: metOLazone 5 MG TABLET PO SCH (08:42)
[2020-01-20] MEDS: PANTOPRAZOLE 40 MG TABLET PO SCH (08:43)
[2020-01-20] MEDS: DOCUSATE SODIUM 100 MG CAPSULE PO SCH ×2 (08:43→21:58)
[2020-01-20] MEDS: FUROSEMIDE 40 MG/4 ML VIAL IV SCH ×2 (08:43→16:40)
[2020-01-20] MEDS: ISOSORBIDE MONONITRATE 20 MG TABLET PO SCH ×2 (08:43→21:58)
[2020-01-20] MEDS: FERROUS SULFATE 325 MG TABLET PO SCH ×2 (08:43→21:59)
[2020-01-20] MEDS: methylPREDNISolone SOD SUC 40 MG/1 ML VIAL IV SCH ×2 (08:44→21:59)
[2020-01-20] MEDS: INSULIN REGULAR 100 UNIT/ML SUBCUT SCH ×4 (08:45→22:00)
[2020-01-20] MEDS: INSULIN GLARGINE 100 UNIT/ML SUBCUT SCH (10:04)
[2020-01-20 13:51] LABS: Basophils % 0.1 % (0.0-0.8); Eosinophils % 0.2 % (0.00-10.9); Hematocrit 29.2 VOL% (35.7-47.0); Hemoglobin 8.6 GM/DL (12.0-16.0); Immature Granulocytes % 0.6 %; Immature Granulocytes Absolute 0.05 #; Lymphocytes # 0.7 10*3/uL (1.4-4.0); Lymphocytes % 7.7 % (21.3-54.2); Mean Corpuscular HGB Conc 29.5 GM/DL (32-36); Mean Corpuscular Volume 103.5 FL (87-102); Mean Platelet Volume 12.7 FL (9.6-12.0); Monocytes % 5.3 % (1.7-12.7); Neutrophils % 86.1 % (38.7-73.9); Platelet Count 177 T/CUMM (130-400); Red Blood Count 2.82 MC/CUMM (3.8-5.5); Red Cell Distribution Width 15.5 % (9.3-17.3); White Blood Count 8.6 T/CUMM (4-12)
[2020-01-20 14:06] LABS: Calcium 7.1 MG/DL (8.5-10.1); Osmolality,Calculated 307.8 MOS/KG (273-304)
[2020-01-20] MEDS: carvediloL 12.5 MG TABLET PO SCH (21:58)
[2020-01-20] MEDS: cefTRIAXone 500 MG in SYRINGE 1 EACH IV SCH (21:59)
[2020-01-20] MEDS: ATORVASTATIN 80 MG TABLET PO SCH (21:59)
[2020-01-21] MEDS: ALBUTEROL/IPRATROPIUM 3 ML NEB RESP TX SCH ×3 (00:58→13:13)
[2020-01-21 05:32] LABS: Basophils % 0.2 % (0.0-0.8); Eosinophils % 0.2 % (0.00-10.9); Hematocrit 29.4 VOL% (35.7-47.0); Hemoglobin 8.7 GM/DL (12.0-16.0); Immature Granulocytes % 0.9 %; Immature Granulocytes Absolute 0.09 #; Lymphocytes # 0.8 10*3/uL (1.4-4.0); Mean Corpuscular HGB Conc 29.6 GM/DL (32-36); Mean Corpuscular Volume 103.9 FL (87-102); Monocytes % 4.7 % (1.7-12.7); NRBC # 0.02 10*3/uL; Platelet Count 188 T/CUMM (130-400); Red Blood Count 2.83 MC/CUMM (3.8-5.5); Red Cell Distribution Width 15.4 % (9.3-17.3)
[2020-01-21 05:42] LABS: INR 1.1; PT Patient Result 11.6 SECS (9.8-11.9)
[2020-01-21 06:06] LABS: Calcium 7.3 MG/DL (8.5-10.1)
[2020-01-21 06:08] LABS: Bilirubin,Direct 0.12 MG/DL (0.0-0.20); Bilirubin,Indirect 0.9 MG/DL (0.0-1.0); Total Protein 6.3 G/DL (6.4-8.3)
[2020-01-21] MEDS ORDERED: MAGNESIUM CITRATE 300 ML BOTTLE PO ONE (09:12)
[2020-01-21] MEDS ORDERED: BISACODYL 10 MG SUPP RECTAL ONE (09:12)
[2020-01-21] MEDS: POTASSIUM CHLORIDE 20 MEQ TABLET PO SCH (10:15)
[2020-01-21] MEDS: ISOSORBIDE MONONITRATE 20 MG TABLET PO SCH (10:15)
[2020-01-21] MEDS: allopurinoL 100 MG TABLET PO SCH (10:15)
[2020-01-21] MEDS: cloNIDine 0.1 MG TABLET PO SCH (10:15)
[2020-01-21] MEDS: metOLazone 5 MG TABLET PO SCH (10:15)
[2020-01-21] MEDS: FERROUS SULFATE 325 MG TABLET PO SCH (10:16)
[2020-01-21] MEDS: carvediloL 12.5 MG TABLET PO SCH (10:16)
[2020-01-21] MEDS: ASPIRIN EC 81 MG TABLET PO SCH (10:16)
[2020-01-21] MEDS: FUROSEMIDE 40 MG/4 ML VIAL IV SCH (10:17)
[2020-01-21] MEDS: DOCUSATE SODIUM 100 MG CAPSULE PO SCH (10:17)
[2020-01-21] MEDS: PANTOPRAZOLE 40 MG TABLET PO SCH (10:17)
[2020-01-21] MEDS: INSULIN REGULAR 100 UNIT/ML SUBCUT SCH ×2 (10:18→12:45)
[2020-01-21] MEDS: methylPREDNISolone SOD SUC 40 MG/1 ML VIAL IV SCH (10:18)
[2020-01-21] MEDS: INSULIN GLARGINE 100 UNIT/ML SUBCUT SCH (10:19)
[2020-01-21 16:05] VITALS: BP 141/65
== END 2020-01-21 16:42 | disposition home health service (06) | DRG 291 ==
LOC: N.EDINP 11:21 → N.ED 11:21 → N.TELEN 15:25
PROVIDERS: ADMIT Family Medicine; ATTEND Family Medicine

== ENCOUNTER 2020-03-04 20:12 | Inpatient (IN) ==
[2020-03-04] MEDS ORDERED: ALBUTEROL 2.5 MG/3 ML NEB RESP TX STA (20:34)
[2020-03-04] MEDS ORDERED: ASPIRIN 325 MG TABLET PO STA (20:34)
[2020-03-04] MEDS ORDERED: ALBUTEROL/IPRATROPIUM 3 ML NEB RESP TX STA (20:34)
[2020-03-04] MEDS ORDERED: FUROSEMIDE 40 MG/4 ML VIAL IV STA ×2 (20:34→23:55)
[2020-03-04 20:48] LABS: Basophils % 0.3 % (0.0-0.8); Eosinophils # 0.2 10*3/uL (0.0-0.87); Eosinophils % 1.7 % (0.00-10.9); Hematocrit 31.3 VOL% (35.7-47.0); Hemoglobin 9.5 GM/DL (12.0-16.0); Immature Granulocytes % 0.2 %; Immature Granulocytes Absolute 0.02 #; Lymphocytes # 0.8 10*3/uL (1.4-4.0); Lymphocytes % 9.8 % (21.3-54.2); Mean Corpuscular HGB Conc 30.4 GM/DL (32-36); Mean Corpuscular Volume 102.3 FL (87-102); Mean Platelet Volume 11.2 FL (9.6-12.0); Monocytes % 6.2 % (1.7-12.7); Neutrophils % 81.8 % (38.7-73.9); Platelet Count 188 T/CUMM (130-400); Red Blood Count 3.06 MC/CUMM (3.8-5.5); Red Cell Distribution Width 15.3 % (9.3-17.3); White Blood Count 8.6 T/CUMM (4-12)
[2020-03-04 21:06] LABS: PT Patient Result 10.9 SECS (9.8-11.9)
[2020-03-04 21:14] LABS: Albumin 2.7 G/DL (3.4-5.0); Bilirubin,Total 0.4 MG/DL (0.2-1.0); Calcium 8.6 MG/DL (8.5-10.1); Total Protein 7.4 G/DL (6.4-8.3)
[2020-03-04 21:16] LABS: Troponin I 0.092 NG/ML (0.00-0.045)
[2020-03-04 21:58] LABS: Allen Test Positive
[2020-03-04 21:59] LABS: ABG Base Excess -5.8 MMOL/L (-2.5-2.5); ABG HCO3 19.3 MMOL/L (20-26); ABG Oxygen Saturation 71.1 % (95-100); ABG PCO2 49.6 MM HG (35-48); ABG PH 7.244 (7.35-7.45); ABG PO2 45.9 MM HG (80-95); ABG TCO2 20.4 MMOL/L (23-27)
[2020-03-04] MEDS ORDERED: NITROGLYCERIN 2% OINT 1 INCH/GM PACK TOP STA (22:43)
[2020-03-04] MEDS ORDERED: ONDANSETRON 4 MG/2 ML VIAL IV PRN (22:59)
[2020-03-04] MEDS ORDERED: ALBUTEROL 2.5 MG/3 ML NEB RESP TX PRN (22:59)
[2020-03-04] MEDS ORDERED: ALBUTEROL/IPRATROPIUM 3 ML NEB RESP TX PRN (22:59)
[2020-03-04] MEDS ORDERED: hydrALAZINE 20 MG/1 ML VIAL IV PRN (22:59)
[2020-03-04] MEDS ORDERED: ACETAMINOPHEN 325 MG TABLET PO PRN (22:59)
[2020-03-04] MEDS ORDERED: GLUCAGON 1 MG VIAL IM PRN (23:05)
[2020-03-04] MEDS ORDERED: DEXTROSE 50% 25 GM/50 ML VIAL IV PRN (23:05)
[2020-03-04 23:44] LABS: ABG Base Excess -6.3 MMOL/L (-2.5-2.5); ABG HCO3 19.1 MMOL/L (20-26); ABG Oxygen Saturation 87.2 % (95-100); ABG PCO2 49.7 MM HG (35-48); ABG PH 7.239 (7.35-7.45); ABG PO2 63.3 MM HG (80-95); ABG TCO2 19.8 MMOL/L (23-27); Allen Test Positive; Pt O2 Delivery Device BIPAP
[2020-03-05 00:06] LABS: Apearance,Urine Slightly Hazy (Clear); Bacteria,Urine Many /HPF (Few); Bilirubin,Urine Negative (Negative); Blood, Urine Small mg/dL (Negative); Glucose,Urine (UA) 150 mg/dL (Negative); Ketones,Urine Negative (Negative); Mucus,Urine Occasional /LPF (Occasional); Nitrite,Urine Negative (Negative); Protein,Urine >=500 MG/DL; RBC,Urine 1 /HPF (0-4); Squamous Epithelial Cell,Urine Occasional /HPF (0-10); Urine Color Yellow (Yellow); Urine Urobilinogen < 2.0 EU/DL (0.2-1.0); WBC,Urine 122 /HPF (0-6)
[2020-03-05] MEDS: ENOXAPARIN 40 MG/0.4 ML SYRINGE SUBCUT SCH ×2 (00:41→23:42)
[2020-03-05] MEDS: PANTOPRAZOLE 40 MG VIAL IV SCH ×2 (00:41→23:42)
[2020-03-05] MEDS: INSULIN REGULAR 100 UNIT/ML SUBCUT SCH ×5 (00:41→23:43)
[2020-03-05] MEDS ORDERED: LABETALOL 20 MG/4 ML SYRINGE IV ONE (00:43)
[2020-03-05 02:27] LABS: Basophils % 0.4 % (0.0-0.8); Eosinophils % 0.1 % (0.00-10.9); Hematocrit 24.8 VOL% (35.7-47.0); Hemoglobin 7.3 GM/DL (12.0-16.0); Immature Granulocytes % 0.3 %; Immature Granulocytes Absolute 0.03 #; Lymphocytes # 0.7 10*3/uL (1.4-4.0); Lymphocytes % 6.7 % (21.3-54.2); Mean Corpuscular HGB Conc 29.4 GM/DL (32-36); Mean Corpuscular Volume 105.1 FL (87-102); Mean Platelet Volume 10.5 FL (9.6-12.0); Monocytes % 6.5 % (1.7-12.7); Platelet Count 200 T/CUMM (130-400); Red Blood Count 2.36 MC/CUMM (3.8-5.5); Red Cell Distribution Width 15.6 % (9.3-17.3); White Blood Count 10.2 T/CUMM (4-12)
[2020-03-05 02:50] LABS: Albumin 2.6 G/DL (3.4-5.0); Bilirubin,Total 0.5 MG/DL (0.2-1.0); Calcium 8.5 MG/DL (8.5-10.1); Total Protein 7.2 G/DL (6.4-8.3)
[2020-03-05 02:53] LABS: Troponin I 1.49 NG/ML (0.00-0.045)
[2020-03-05 04:45] LABS: ABG Base Excess -5.7 MMOL/L (-2.5-2.5); ABG HCO3 21.2 MMOL/L (20-26); ABG Oxygen Saturation 99.4 % (95-100); ABG PCO2 49.3 MM HG (35-48); ABG PH 7.251 (7.35-7.45); ABG PO2 278.6 MM HG (80-95); ABG TCO2 22.7 MMOL/L (23-27); Allen Test Positive; Pt O2 Delivery Device BIPAP
[2020-03-05] MEDS: DOCUSATE SODIUM 100 MG CAPSULE PO SCH ×2 (09:40→20:56)
[2020-03-05] MEDS: ASPIRIN EC 81 MG TABLET PO SCH (09:40)
[2020-03-05] MEDS: carvediloL 25 MG TABLET PO SCH ×2 (09:40→17:01)
[2020-03-05] MEDS: predniSONE 10 MG TABLET PO SCH (09:40)
[2020-03-05] MEDS: FUROSEMIDE 40 MG/4 ML VIAL IV SCH ×2 (09:40→15:28)
[2020-03-05] MEDS: metOLazone 5 MG TABLET PO SCH (09:40)
[2020-03-05] MEDS: cloNIDine 0.1 MG TABLET PO SCH ×2 (09:40→20:56)
[2020-03-06 05:42] LABS: Basophils % 0.4 % (0.0-0.8); Eosinophils # 0.1 10*3/uL (0.0-0.87); Eosinophils % 0.9 % (0.00-10.9); Hematocrit 22.9 VOL% (35.7-47.0); Hemoglobin 6.9 GM/DL (12.0-16.0); Immature Granulocytes % 0.5 %; Immature Granulocytes Absolute 0.04 #; Lymphocytes % 13.7 % (21.3-54.2); Mean Corpuscular HGB Conc 30.1 GM/DL (32-36); Mean Platelet Volume 11.6 FL (9.6-12.0); Monocytes % 9.3 % (1.7-12.7); Neutrophils % 75.2 % (38.7-73.9); Platelet Count 166 T/CUMM (130-400); Red Blood Count 2.18 MC/CUMM (3.8-5.5); Red Cell Distribution Width 15.4 % (9.3-17.3); White Blood Count 7.4 T/CUMM (4-12)
[2020-03-06 06:43] LABS: Calcium 8.5 MG/DL (8.5-10.1); Osmolality,Calculated 297.8 MOS/KG (273-304)
[2020-03-06] MEDS: INSULIN REGULAR 100 UNIT/ML SUBCUT SCH ×3 (06:46→20:28)
[2020-03-06] MEDS: FUROSEMIDE 40 MG/4 ML VIAL IV SCH ×3 (08:29→17:11)
[2020-03-06] MEDS: cloNIDine 0.1 MG TABLET PO SCH ×2 (08:49→20:28)
[2020-03-06] MEDS: PANTOPRAZOLE 40 MG TABLET PO SCH (08:49)
[2020-03-06] MEDS: predniSONE 10 MG TABLET PO SCH (08:49)
[2020-03-06] MEDS: DOCUSATE SODIUM 100 MG CAPSULE PO SCH ×2 (08:49→20:28)
[2020-03-06] MEDS: ASPIRIN EC 81 MG TABLET PO SCH (08:49)
[2020-03-06] MEDS: metOLazone 5 MG TABLET PO SCH (08:49)
[2020-03-06] MEDS: carvediloL 25 MG TABLET PO SCH ×2 (08:50→17:12)
[2020-03-06 12:00] LABS: CKMB % 3.5 %
[2020-03-06 12:06] LABS: Troponin I 2.34 NG/ML (0.00-0.045)
[2020-03-06 13:49] LABS: CKMB % 3.5 %
[2020-03-06 13:58] LABS: Troponin I 2.29 NG/ML (0.00-0.045)
[2020-03-06] MEDS ORDERED: ENOXAPARIN 30 MG/0.3 ML SYRINGE SUBCUT SCH (23:00)
[2020-03-07 06:26] LABS: Basophils % 0.4 % (0.0-0.8); Eosinophils # 0.1 10*3/uL (0.0-0.87); Eosinophils % 1.3 % (0.00-10.9); Hematocrit 24.7 VOL% (35.7-47.0); Hemoglobin 7.2 GM/DL (12.0-16.0); Immature Granulocytes % 0.6 %; Immature Granulocytes Absolute 0.05 #; Lymphocytes # 1.4 10*3/uL (1.4-4.0); Lymphocytes % 16.7 % (21.3-54.2); Mean Corpuscular HGB Conc 29.1 GM/DL (32-36); Mean Platelet Volume 12.2 FL (9.6-12.0); Monocytes % 9.5 % (1.7-12.7); Neutrophils % 71.5 % (38.7-73.9); Platelet Count 168 T/CUMM (130-400); Red Blood Count 2.33 MC/CUMM (3.8-5.5); Red Cell Distribution Width 15.2 % (9.3-17.3); White Blood Count 8.2 T/CUMM (4-12)
[2020-03-07 07:03] LABS: Risk Ratio 2.44; VLDL CHOLESTEROL 23.4 MG/DL
[2020-03-07 07:10] LABS: Calcium 8.2 MG/DL (8.5-10.1); Osmolality,Calculated 297.1 MOS/KG (273-304)
[2020-03-07] MEDS: INSULIN REGULAR 100 UNIT/ML SUBCUT SCH ×4 (08:33→21:25)
[2020-03-07] MEDS: PANTOPRAZOLE 40 MG TABLET PO SCH (08:33)
[2020-03-07] MEDS: metOLazone 5 MG TABLET PO SCH (08:34)
[2020-03-07] MEDS: FUROSEMIDE 40 MG/4 ML VIAL IV SCH ×2 (08:34→16:23)
[2020-03-07] MEDS: predniSONE 10 MG TABLET PO SCH (08:34)
[2020-03-07] MEDS: ASPIRIN EC 81 MG TABLET PO SCH (08:34)
[2020-03-07] MEDS: cloNIDine 0.1 MG TABLET PO SCH ×2 (08:34→21:24)
[2020-03-07] MEDS: carvediloL 25 MG TABLET PO SCH ×2 (08:34→16:23)
[2020-03-07] MEDS: DOCUSATE SODIUM 100 MG CAPSULE PO SCH ×2 (08:34→21:24)
[2020-03-07 13:52] LABS: Folate 5.1 NG/ML (5.4-24.0)
[2020-03-07] MEDS: FOLIC ACID 1 MG TABLET PO SCH (16:23)
[2020-03-07] MEDS: ATORVASTATIN 80 MG TABLET PO SCH (21:25)
[2020-03-08 05:43] LABS: Basophils # 0.1 10*3/uL (0.0-0.2); Basophils % 0.6 % (0.0-0.8); Eosinophils # 0.2 10*3/uL (0.0-0.87); Hematocrit 23.4 VOL% (35.7-47.0); Immature Granulocytes % 0.7 %; Immature Granulocytes Absolute 0.06 #; Lymphocytes # 1.4 10*3/uL (1.4-4.0); Lymphocytes % 16.9 % (21.3-54.2); Mean Corpuscular HGB Conc 29.9 GM/DL (32-36); Mean Platelet Volume 11.8 FL (9.6-12.0); Monocytes % 9.6 % (1.7-12.7); Neutrophils % 70.2 % (38.7-73.9); Platelet Count 169 T/CUMM (130-400); Red Blood Count 2.25 MC/CUMM (3.8-5.5); Red Cell Distribution Width 14.8 % (9.3-17.3); White Blood Count 8.4 T/CUMM (4-12)
[2020-03-08 06:09] LABS: Calcium 8.1 MG/DL (8.5-10.1); Osmolality,Calculated 305.7 MOS/KG (273-304)
[2020-03-08 06:25] LABS: % Iron Saturation 20.4 % (18-50)
[2020-03-08] MEDS ORDERED: IRON SUCROSE 200 MG in SODIUM CHLORIDE 0.9% 100 ML IV ONE (09:00)
[2020-03-08] MEDS ORDERED: EPOETIN ALFA-EPBX 2,000 UNIT/ML VIAL SUBCUT SCH (09:00)
[2020-03-08] MEDS ORDERED: EPOETIN ALFA 2,000 UNIT/1 ML VIAL SUBCUT SCH (09:00)
[2020-03-08] MEDS: metOLazone 5 MG TABLET PO SCH (09:28)
[2020-03-08] MEDS: cloNIDine 0.1 MG TABLET PO SCH ×2 (09:28→21:49)
[2020-03-08] MEDS: carvediloL 25 MG TABLET PO SCH ×2 (09:28→17:18)
[2020-03-08] MEDS: ASPIRIN EC 81 MG TABLET PO SCH (09:28)
[2020-03-08] MEDS: predniSONE 10 MG TABLET PO SCH (09:28)
[2020-03-08] MEDS: DOCUSATE SODIUM 100 MG CAPSULE PO SCH ×2 (09:28→21:49)
[2020-03-08] MEDS: FOLIC ACID 1 MG TABLET PO SCH (09:28)
[2020-03-08] MEDS: FUROSEMIDE 40 MG/4 ML VIAL IV SCH ×2 (09:29→17:18)
[2020-03-08] MEDS: INSULIN REGULAR 100 UNIT/ML SUBCUT SCH ×4 (09:37→21:50)
[2020-03-08] MEDS ORDERED: SODIUM CHLORIDE 0.9% 1,000 ML IV PRN (12:48)
[2020-03-08 21:49] LABS: Hematocrit 27.5 VOL% (35.7-47.0); Hemoglobin 8.6 GM/DL (12.0-16.0)
[2020-03-08] MEDS: ATORVASTATIN 80 MG TABLET PO SCH (21:49)
[2020-03-09 05:37] LABS: Basophils % 0.3 % (0.0-0.8); Eosinophils # 0.1 10*3/uL (0.0-0.87); Eosinophils % 1.1 % (0.00-10.9); Hematocrit 26.8 VOL% (35.7-47.0); Hemoglobin 8.5 GM/DL (12.0-16.0); Immature Granulocytes % 1.7 %; Immature Granulocytes Absolute 0.15 #; Lymphocytes # 1.4 10*3/uL (1.4-4.0); Lymphocytes % 16.2 % (21.3-54.2); Mean Corpuscular HGB Conc 31.7 GM/DL (32-36); Mean Corpuscular Volume 96.4 FL (87-102); Mean Platelet Volume 11.9 FL (9.6-12.0); Monocytes % 9.5 % (1.7-12.7); NRBC # 0.03 10*3/uL; Neutrophils % 71.2 % (38.7-73.9); Platelet Count 177 T/CUMM (130-400); Red Blood Count 2.78 MC/CUMM (3.8-5.5); Red Cell Distribution Width 16.5 % (9.3-17.3); White Blood Count 8.7 T/CUMM (4-12)
[2020-03-09 06:23] LABS: Calcium 8.4 MG/DL (8.5-10.1); Osmolality,Calculated 299.3 MOS/KG (273-304)
[2020-03-09] MEDS: INSULIN REGULAR 100 UNIT/ML SUBCUT SCH ×3 (08:43→15:51)
[2020-03-09] MEDS: carvediloL 25 MG TABLET PO SCH (09:15)
[2020-03-09] MEDS: cloNIDine 0.1 MG TABLET PO SCH (09:16)
[2020-03-09] MEDS ORDERED: IRON SUCROSE 300 MG in SODIUM CHLORIDE 0.9% 100 ML IV ONE (09:30)
[2020-03-09] MEDS: FUROSEMIDE 40 MG/4 ML VIAL IV SCH ×2 (10:20→15:10)
[2020-03-09] MEDS: DOCUSATE SODIUM 100 MG CAPSULE PO SCH (10:20)
[2020-03-09] MEDS: metOLazone 5 MG TABLET PO SCH (10:20)
[2020-03-09] MEDS: predniSONE 10 MG TABLET PO SCH (10:21)
[2020-03-09] MEDS: ASPIRIN EC 81 MG TABLET PO SCH (10:21)
[2020-03-09] MEDS: FOLIC ACID 1 MG TABLET PO SCH (10:26)
[2020-03-09 12:04] VITALS: BP 143/62
[2020-03-10] MEDS ORDERED: IRON SUCROSE 200 MG in SODIUM CHLORIDE 0.9% 100 ML IV ONE (09:00)
[2020-03-11] MEDS ORDERED: IRON SUCROSE 300 MG in SODIUM CHLORIDE 0.9% 100 ML IV ONE (09:00)
== END 2020-03-09 16:03 | disposition home health service (06) | DRG 280 ==
LOC: N.ED 20:12 → SUATTDRO 22:59 → N.EDINP 23:59 → N.ICU 03-05 00:03 → N.3E 03-06 21:15
PROVIDERS: ADMIT Student in an Organized Health Care Education/Training Program; ATTEND Internal Medicine

== ENCOUNTER 2020-04-04 22:29 | Inpatient (IN) ==
[2020-04-04] MEDS ORDERED: FUROSEMIDE 40 MG/4 ML VIAL IV STA (22:48)
[2020-04-04] MEDS ORDERED: ALBUTEROL/IPRATROPIUM 3 ML NEB RESP TX STA (22:52)
[2020-04-04] MEDS: NITROGLYCERIN DRIP 50 MG/250 ML BOTTLE IV SCH (23:05)
[2020-04-04 23:09] LABS: ABG Base Excess -5.7 MMOL/L (-2.5-2.5); ABG HCO3 19.7 MMOL/L (20-26); ABG Oxygen Saturation 92.6 % (95-100); ABG PO2 81.8 MM HG (80-95); ABG TCO2 21.4 MMOL/L (23-27); Allen Test Positive
[2020-04-04 23:12] LABS: ABG PH 7.203 (7.35-7.45)
[2020-04-04 23:30] LABS: Basophils # 0.1 10*3/uL (0.0-0.2); Basophils % 0.5 % (0.0-0.8); Eosinophils # 0.2 10*3/uL (0.0-0.87); Eosinophils % 1.4 % (0.00-10.9); Hematocrit 29.5 VOL% (35.7-47.0); Immature Granulocytes % 0.5 %; Immature Granulocytes Absolute 0.07 #; Lymphocytes % 7.5 % (21.3-54.2); Mean Corpuscular HGB Conc 30.5 GM/DL (32-36); Mean Corpuscular Volume 101.4 FL (87-102); Mean Platelet Volume 11.7 FL (9.6-12.0); Monocytes % 6.3 % (1.7-12.7); Neutrophils % 83.8 % (38.7-73.9); Platelet Count 238 T/CUMM (130-400); Red Blood Count 2.91 MC/CUMM (3.8-5.5); Red Cell Distribution Width 16.1 % (9.3-17.3)
[2020-04-04 23:41] LABS: Bilirubin,Total 0.4 MG/DL (0.2-1.0); Calcium 8.6 MG/DL (8.5-10.1)
[2020-04-04] MEDS ORDERED: METOPROLOL TARTRATE 5 MG/5 ML VIAL IV STA (23:57)
[2020-04-04] MEDS ORDERED: METOPROLOL TARTRATE 5 MG/5 ML VIAL IV ONE (23:58)
[2020-04-05] MEDS ORDERED: NITROGLYCERIN 2% OINT 1 INCH/GM PACK TOP STA (00:06)
[2020-04-05] MEDS ORDERED: GLUCAGON 1 MG VIAL IM PRN (00:07)
[2020-04-05] MEDS ORDERED: ONDANSETRON 4 MG/2 ML VIAL IV PRN (00:07)
[2020-04-05] MEDS ORDERED: DEXTROSE 50% 25 GM/50 ML VIAL IV PRN (00:07)
[2020-04-05] MEDS ORDERED: ACETAMINOPHEN 325 MG TABLET PO PRN (00:07)
[2020-04-05 01:32] LABS: Amorphous Crystals,Urine Occasional /HPF (Few); Bacteria,Urine Many /HPF (Few); Bilirubin,Urine Negative (Negative); Blood, Urine Small mg/dL (Negative); Glucose,Urine (UA) Negative (Negative); Ketones,Urine Negative (Negative); Mucus,Urine Occasional /LPF (Occasional); Nitrite,Urine Negative (Negative); Protein,Urine 100 MG/DL; Urine Appearance CLOUDY (Clear); Urine Color Yellow (Yellow); Urine Specific Gravity 1.008 (1.001-1.035); Urine Urobilinogen < 2.0 EU/DL (0.2-1.0); WBC,Urine 27 /HPF (0-6)
[2020-04-05] MEDS ORDERED: METOPROLOL TARTRATE 5 MG/5 ML VIAL IV STA (01:39)
[2020-04-05] MEDS: INSULIN REGULAR 100 UNIT/ML SUBCUT SCH ×3 (06:45→19:16)
[2020-04-05] MEDS: PANTOPRAZOLE 40 MG TABLET PO SCH (11:00)
[2020-04-05] MEDS: ENOXAPARIN 30 MG/0.3 ML SYRINGE SUBCUT SCH (11:00)
[2020-04-05] MEDS: DOCUSATE SODIUM 100 MG CAPSULE PO SCH ×2 (11:00→21:53)
[2020-04-05] MEDS ORDERED: carvediloL 12.5 MG TABLET PO SCH (11:00)
[2020-04-05] MEDS: allopurinoL 100 MG TABLET PO SCH (11:30)
[2020-04-05] MEDS: FUROSEMIDE 40 MG/4 ML VIAL IV SCH ×2 (11:30→17:00)
[2020-04-05] MEDS: metOLazone 5 MG TABLET PO SCH (11:30)
[2020-04-05] MEDS: INSULIN GLARGINE 100 UNIT/ML SUBCUT SCH (14:00)
[2020-04-05 15:24] LABS: Ferritin 735.1 ng/ml (8-252)
[2020-04-05] MEDS: carvediloL 25 MG TABLET PO SCH (21:53)
[2020-04-05] MEDS: cloNIDine 0.1 MG TABLET PO SCH (21:53)
[2020-04-05] MEDS: ATORVASTATIN 80 MG TABLET PO SCH (21:53)
[2020-04-06] MEDS: INSULIN REGULAR 100 UNIT/ML SUBCUT SCH ×5 (01:31→23:42)
[2020-04-06] MEDS: NITROGLYCERIN DRIP 50 MG/250 ML BOTTLE IV SCH ×2 (01:31→22:13)
[2020-04-06 04:22] LABS: ABG Base Excess -0.8 MMOL/L (-2.5-2.5); ABG HCO3 25.4 MMOL/L (20-26); ABG Oxygen Saturation 95.8 % (95-100); ABG PCO2 50.8 MM HG (35-48); ABG PH 7.317 (7.35-7.45); ABG PO2 83.6 MM HG (80-95); Allen Test Positive; Pt O2 Delivery Device CPAP
[2020-04-06 06:49] LABS: Basophils # 0.1 10*3/uL (0.0-0.2); Basophils % 0.6 % (0.0-0.8); Eosinophils # 0.2 10*3/uL (0.0-0.87); Eosinophils % 1.9 % (0.00-10.9); Hematocrit 23.3 VOL% (35.7-47.0); Immature Granulocytes % 0.4 %; Immature Granulocytes Absolute 0.03 #; Lymphocytes # 0.9 10*3/uL (1.4-4.0); Lymphocytes % 10.9 % (21.3-54.2); Mean Corpuscular HGB Conc 30.9 GM/DL (32-36); Mean Corpuscular Volume 100.9 FL (87-102); Mean Platelet Volume 11.1 FL (9.6-12.0); Monocytes % 8.9 % (1.7-12.7); Neutrophils % 77.3 % (38.7-73.9); Red Blood Count 2.31 MC/CUMM (3.8-5.5); Red Cell Distribution Width 16.2 % (9.3-17.3)
[2020-04-06 06:51] LABS: White Blood Count 8.3 T/CUMM (4-12)
[2020-04-06 06:52] LABS: Hemoglobin 7.2 GM/DL (12.0-16.0); Platelet Count 171 T/CUMM (130-400)
[2020-04-06 07:15] LABS: Calcium 8.5 MG/DL (8.5-10.1); Osmolality,Calculated 302.7 MOS/KG (273-304)
[2020-04-06] MEDS ORDERED: MAGNESIUM SULF RIDER 2 GM in PREMIX 1 EACH IV ONE (08:44)
[2020-04-06] MEDS: FOLIC ACID 1 MG TABLET PO SCH (09:32)
[2020-04-06] MEDS: cloNIDine 0.1 MG TABLET PO SCH ×2 (09:32→21:36)
[2020-04-06] MEDS: DOCUSATE SODIUM 100 MG CAPSULE PO SCH ×2 (09:32→21:36)
[2020-04-06] MEDS: PANTOPRAZOLE 40 MG TABLET PO SCH (09:32)
[2020-04-06] MEDS: ENOXAPARIN 30 MG/0.3 ML SYRINGE SUBCUT SCH (09:32)
[2020-04-06] MEDS: allopurinoL 100 MG TABLET PO SCH (09:32)
[2020-04-06] MEDS: FUROSEMIDE 40 MG/4 ML VIAL IV SCH ×2 (09:32→16:16)
[2020-04-06] MEDS: metOLazone 5 MG TABLET PO SCH (09:32)
[2020-04-06] MEDS: carvediloL 25 MG TABLET PO SCH ×2 (09:32→21:36)
[2020-04-06] MEDS: INSULIN GLARGINE 100 UNIT/ML SUBCUT SCH (10:46)
[2020-04-06] MEDS: ATORVASTATIN 80 MG TABLET PO SCH (21:36)
[2020-04-07] MEDS: INSULIN REGULAR 100 UNIT/ML SUBCUT SCH ×3 (06:02→17:29)
[2020-04-07 06:05] LABS: Basophils % 0.5 % (0.0-0.8); Eosinophils # 0.2 10*3/uL (0.0-0.87); Eosinophils % 2.9 % (0.00-10.9); Hematocrit 23.1 VOL% (35.7-47.0); Hemoglobin 6.9 GM/DL (12.0-16.0); Immature Granulocytes % 1.2 %; Immature Granulocytes Absolute 0.08 #; Lymphocytes # 0.9 10*3/uL (1.4-4.0); Mean Corpuscular HGB Conc 29.9 GM/DL (32-36); Mean Corpuscular Volume 103.1 FL (87-102); Mean Platelet Volume 12.5 FL (9.6-12.0); Monocytes % 9.8 % (1.7-12.7); Neutrophils % 71.6 % (38.7-73.9); Platelet Count 160 T/CUMM (130-400); Red Blood Count 2.24 MC/CUMM (3.8-5.5); Red Cell Distribution Width 16.3 % (9.3-17.3); White Blood Count 6.6 T/CUMM (4-12)
[2020-04-07 06:27] LABS: Calcium 8.3 MG/DL (8.5-10.1); Osmolality,Calculated 300.1 MOS/KG (273-304)
[2020-04-07 06:38] LABS: Hypochromasia 2+; Microcytosis 1+; Ovalocytes Slight; Platelet Estimate Adequate
[2020-04-07] MEDS: cloNIDine 0.1 MG TABLET PO SCH (09:33)
[2020-04-07] MEDS: FUROSEMIDE 40 MG/4 ML VIAL IV SCH (09:33)
[2020-04-07] MEDS: PANTOPRAZOLE 40 MG TABLET PO SCH (09:33)
[2020-04-07] MEDS: allopurinoL 100 MG TABLET PO SCH (09:33)
[2020-04-07] MEDS: FOLIC ACID 1 MG TABLET PO SCH (09:33)
[2020-04-07] MEDS: metOLazone 5 MG TABLET PO SCH (09:33)
[2020-04-07] MEDS: INSULIN GLARGINE 100 UNIT/ML SUBCUT SCH (09:34)
[2020-04-07] MEDS: ENOXAPARIN 30 MG/0.3 ML SYRINGE SUBCUT SCH ×2 (09:34→09:41)
[2020-04-07] MEDS: carvediloL 25 MG TABLET PO SCH ×2 (09:41→22:10)
[2020-04-07] MEDS: DOCUSATE SODIUM 100 MG CAPSULE PO SCH ×2 (10:15→22:11)
[2020-04-07] MEDS ORDERED: ALBUTEROL/IPRATROPIUM 3 ML NEB RESP TX PRN (11:07)
[2020-04-07] MEDS ORDERED: metOLazone 5 MG TABLET PO SCH (11:08)
[2020-04-07] MEDS ORDERED: SODIUM CHLORIDE 0.9% 1,000 ML IV PRN (11:22)
[2020-04-07] MEDS ORDERED: FUROSEMIDE 20 MG/2 ML VIAL IV ONE (11:25)
[2020-04-07] MEDS: cefTRIAXone 1,000 MG in SYRINGE 1 EACH IV SCH (12:14)
[2020-04-07] MEDS ORDERED: INFLUENZA VIRUS VACCINE 0.5 ML SYRINGE IM ONE (13:33)
[2020-04-07] MEDS: FUROSEMIDE 40 MG TABLET PO SCH (16:36)
[2020-04-07] MEDS: ATORVASTATIN 80 MG TABLET PO SCH (22:10)
[2020-04-08] MEDS: INSULIN REGULAR 100 UNIT/ML SUBCUT SCH ×4 (00:29→18:58)
[2020-04-08 05:52] LABS: Basophils % 0.4 % (0.0-0.8); Eosinophils # 0.2 10*3/uL (0.0-0.87); Hematocrit 29.3 VOL% (35.7-47.0); Immature Granulocytes % 0.4 %; Immature Granulocytes Absolute 0.04 #; Lymphocytes # 0.8 10*3/uL (1.4-4.0); Lymphocytes % 8.9 % (21.3-54.2); Mean Corpuscular HGB Conc 30.7 GM/DL (32-36); Mean Corpuscular Volume 97.3 FL (87-102); Mean Platelet Volume 11.5 FL (9.6-12.0); Monocytes % 8.6 % (1.7-12.7); Neutrophils % 79.7 % (38.7-73.9); Platelet Count 164 T/CUMM (130-400); Red Cell Distribution Width 18.5 % (9.3-17.3); White Blood Count 8.9 T/CUMM (4-12)
[2020-04-08 05:58] LABS: Red Blood Count 3.01 MC/CUMM (3.8-5.5)
[2020-04-08 06:10] LABS: Albumin 2.2 G/DL (3.4-5.0); Bilirubin,Direct 0.2 MG/DL (0.0-0.20); Bilirubin,Indirect 0.4 MG/DL (0.0-1.0); Bilirubin,Total 0.6 MG/DL (0.2-1.0); Osmolality,Calculated 302.1 MOS/KG (273-304); Total Protein 6.7 G/DL (6.4-8.3)
[2020-04-08] MEDS: FUROSEMIDE 40 MG TABLET PO SCH ×2 (09:03→16:31)
[2020-04-08] MEDS: ENOXAPARIN 30 MG/0.3 ML SYRINGE SUBCUT SCH (09:04)
[2020-04-08] MEDS: PANTOPRAZOLE 40 MG TABLET PO SCH (09:04)
[2020-04-08] MEDS: FOLIC ACID 1 MG TABLET PO SCH (09:04)
[2020-04-08] MEDS: DOCUSATE SODIUM 100 MG CAPSULE PO SCH ×2 (09:04→21:54)
[2020-04-08] MEDS: cloNIDine 0.1 MG TABLET PO SCH (09:04)
[2020-04-08] MEDS: allopurinoL 100 MG TABLET PO SCH (09:04)
[2020-04-08] MEDS: carvediloL 25 MG TABLET PO SCH ×2 (09:04→21:54)
[2020-04-08] MEDS: INSULIN GLARGINE 100 UNIT/ML SUBCUT SCH (09:05)
[2020-04-08] MEDS: NITROGLYCERIN DRIP 50 MG/250 ML BOTTLE IV SCH (10:46)
[2020-04-08] MEDS: cefTRIAXone 1,000 MG in SYRINGE 1 EACH IV SCH (13:10)
[2020-04-08] MEDS: ATORVASTATIN 80 MG TABLET PO SCH (21:54)
[2020-04-09] MEDS: INSULIN REGULAR 100 UNIT/ML SUBCUT SCH ×4 (00:08→19:25)
[2020-04-09 04:54] LABS: Basophils # 0.1 10*3/uL (0.0-0.2); Eosinophils # 0.2 10*3/uL (0.0-0.87); Eosinophils % 2.9 % (0.00-10.9); Hematocrit 31.1 VOL% (35.7-47.0); Hemoglobin 9.7 GM/DL (12.0-16.0); Immature Granulocytes % 0.5 %; Immature Granulocytes Absolute 0.04 #; Lymphocytes # 1.2 10*3/uL (1.4-4.0); Lymphocytes % 16.3 % (21.3-54.2); Mean Corpuscular HGB Conc 31.2 GM/DL (32-36); Mean Corpuscular Volume 96.6 FL (87-102); Mean Platelet Volume 11.7 FL (9.6-12.0); Monocytes % 10.5 % (1.7-12.7); Neutrophils % 68.8 % (38.7-73.9); Platelet Count 160 T/CUMM (130-400); Red Blood Count 3.22 MC/CUMM (3.8-5.5); Red Cell Distribution Width 17.6 % (9.3-17.3); White Blood Count 7.3 T/CUMM (4-12)
[2020-04-09 05:31] LABS: Osmolality,Calculated 302.3 MOS/KG (273-304)
[2020-04-09] MEDS: ENOXAPARIN 30 MG/0.3 ML SYRINGE SUBCUT SCH (08:40)
[2020-04-09] MEDS: DOCUSATE SODIUM 100 MG CAPSULE PO SCH ×2 (08:40→21:22)
[2020-04-09] MEDS: cloNIDine 0.1 MG TABLET PO SCH (08:40)
[2020-04-09] MEDS: FOLIC ACID 1 MG TABLET PO SCH (08:40)
[2020-04-09] MEDS: FUROSEMIDE 40 MG TABLET PO SCH ×2 (08:40→16:16)
[2020-04-09] MEDS: PANTOPRAZOLE 40 MG TABLET PO SCH (08:40)
[2020-04-09] MEDS: INSULIN GLARGINE 100 UNIT/ML SUBCUT SCH (08:41)
[2020-04-09] MEDS: carvediloL 25 MG TABLET PO SCH ×2 (08:42→21:22)
[2020-04-09] MEDS: NITROGLYCERIN DRIP 50 MG/250 ML BOTTLE IV SCH ×2 (11:31→23:30)
[2020-04-09] MEDS: cefTRIAXone 1,000 MG in SYRINGE 1 EACH IV SCH (12:11)
[2020-04-09] MEDS: ATORVASTATIN 80 MG TABLET PO SCH (21:22)
[2020-04-10] MEDS: INSULIN REGULAR 100 UNIT/ML SUBCUT SCH ×5 (00:05→23:34)
[2020-04-10 07:38] LABS: Basophils % 0.5 % (0.0-0.8); Eosinophils # 0.2 10*3/uL (0.0-0.87); Eosinophils % 2.9 % (0.00-10.9); Hematocrit 30.8 VOL% (35.7-47.0); Hemoglobin 9.6 GM/DL (12.0-16.0); Immature Granulocytes % 0.4 %; Immature Granulocytes Absolute 0.03 #; Lymphocytes # 0.9 10*3/uL (1.4-4.0); Lymphocytes % 11.1 % (21.3-54.2); Mean Corpuscular HGB Conc 31.2 GM/DL (32-36); Mean Corpuscular Volume 98.4 FL (87-102); Mean Platelet Volume 11.2 FL (9.6-12.0); Monocytes % 9.7 % (1.7-12.7); Neutrophils % 75.4 % (38.7-73.9); Platelet Count 171 T/CUMM (130-400); Red Blood Count 3.13 MC/CUMM (3.8-5.5); Red Cell Distribution Width 17.2 % (9.3-17.3); White Blood Count 7.9 T/CUMM (4-12)
[2020-04-10 08:21] LABS: Calcium 8.5 MG/DL (8.5-10.1); Osmolality,Calculated 304.8 MOS/KG (273-304)
[2020-04-10] MEDS: DOCUSATE SODIUM 100 MG CAPSULE PO SCH ×2 (08:54→20:16)
[2020-04-10] MEDS: FOLIC ACID 1 MG TABLET PO SCH (08:54)
[2020-04-10] MEDS: cloNIDine 0.1 MG TABLET PO SCH (08:54)
[2020-04-10] MEDS: INSULIN GLARGINE 100 UNIT/ML SUBCUT SCH (08:54)
[2020-04-10] MEDS: FUROSEMIDE 40 MG TABLET PO SCH ×2 (08:54→16:22)
[2020-04-10] MEDS: ENOXAPARIN 30 MG/0.3 ML SYRINGE SUBCUT SCH (08:54)
[2020-04-10] MEDS: PANTOPRAZOLE 40 MG TABLET PO SCH (08:54)
[2020-04-10] MEDS: carvediloL 25 MG TABLET PO SCH ×3 (08:56→20:22)
[2020-04-10] MEDS: cefTRIAXone 1,000 MG in SYRINGE 1 EACH IV SCH (08:56)
[2020-04-10] MEDS: ATORVASTATIN 80 MG TABLET PO SCH (20:15)
[2020-04-11 06:25] LABS: Basophils # 0.1 10*3/uL (0.0-0.2); Basophils % 0.7 % (0.0-0.8); Eosinophils # 0.2 10*3/uL (0.0-0.87); Eosinophils % 3.1 % (0.00-10.9); Hematocrit 31.5 VOL% (35.7-47.0); Hemoglobin 9.8 GM/DL (12.0-16.0); Immature Granulocytes % 0.1 %; Immature Granulocytes Absolute 0.01 #; Lymphocytes # 1.1 10*3/uL (1.4-4.0); Lymphocytes % 14.6 % (21.3-54.2); Mean Corpuscular HGB Conc 31.1 GM/DL (32-36); Mean Corpuscular Volume 97.5 FL (87-102); Mean Platelet Volume 11.6 FL (9.6-12.0); Monocytes % 9.8 % (1.7-12.7); Neutrophils % 71.7 % (38.7-73.9); Platelet Count 180 T/CUMM (130-400); Red Blood Count 3.23 MC/CUMM (3.8-5.5); Red Cell Distribution Width 16.8 % (9.3-17.3); White Blood Count 7.5 T/CUMM (4-12)
[2020-04-11 06:47] LABS: Calcium 8.8 MG/DL (8.5-10.1); Osmolality,Calculated 307.6 MOS/KG (273-304)
[2020-04-11] MEDS: INSULIN REGULAR 100 UNIT/ML SUBCUT SCH ×2 (06:57→12:31)
[2020-04-11] MEDS: cloNIDine 0.1 MG TABLET PO SCH (09:01)
[2020-04-11] MEDS: FOLIC ACID 1 MG TABLET PO SCH (09:01)
[2020-04-11] MEDS: DOCUSATE SODIUM 100 MG CAPSULE PO SCH (09:01)
[2020-04-11] MEDS: PANTOPRAZOLE 40 MG TABLET PO SCH (09:01)
[2020-04-11] MEDS: carvediloL 25 MG TABLET PO SCH (09:01)
[2020-04-11] MEDS: INSULIN GLARGINE 100 UNIT/ML SUBCUT SCH (09:01)
[2020-04-11] MEDS: cefTRIAXone 1,000 MG in SYRINGE 1 EACH IV SCH (09:02)
[2020-04-11] MEDS: ENOXAPARIN 30 MG/0.3 ML SYRINGE SUBCUT SCH (09:03)
[2020-04-11] MEDS: FUROSEMIDE 40 MG TABLET PO SCH (09:09)
[2020-04-11 11:43] VITALS: BP 143/53
== END 2020-04-11 14:55 | DRG 291 ==
LOC: N.ED 22:29 → N.EDINP 04-05 00:07 → SUATTDRO 04-05 00:07 → N.EDINP 04-05 08:53 → N.CC 04-05 10:19 → N.5E 04-06 17:06
PROVIDERS: ADMIT Family Medicine; ATTEND Family Medicine

== ENCOUNTER 2020-07-04 15:10 | Inpatient (IN) ==
[2020-07-04] MEDS ORDERED: GLUCAGON 1 MG VIAL IM PRN ×2 (17:05)
[2020-07-04] MEDS ORDERED: DEXTROSE 50% 25 GM/50 ML VIAL IV PRN ×2 (17:05)
[2020-07-04 17:46] LABS: Basophils % 0.2 % (0.0-0.8); Eosinophils # 0.1 10*3/uL (0.0-0.87); Eosinophils % 0.7 % (0.00-10.9); Hematocrit 23.3 VOL% (35.7-47.0); Hemoglobin 7.5 GM/DL (12.0-16.0); Immature Granulocytes % 0.7 %; Immature Granulocytes Absolute 0.09 #; Lymphocytes # 0.8 10*3/uL (1.4-4.0); Lymphocytes % 5.7 % (21.3-54.2); Mean Corpuscular HGB Conc 32.2 GM/DL (32-36); Mean Corpuscular Volume 97.1 FL (87-102); Mean Platelet Volume 11.7 FL (9.6-12.0); Monocytes % 10.7 % (1.7-12.7); Platelet Count 144 T/CUMM (130-400); Red Cell Distribution Width 14.8 % (9.3-17.3); White Blood Count 13.8 T/CUMM (4-12)
[2020-07-04 18:02] LABS: Albumin 2.2 G/DL (3.4-5.0); Bilirubin,Total 0.9 MG/DL (0.2-1.0); Calcium 7.9 MG/DL (8.5-10.1); Osmolality,Calculated 309.2 MOS/KG (273-304); Potassium 4.2 MMOL/L (3.5-5.1); Total Protein 6.6 G/DL (6.4-8.3)
[2020-07-04] MEDS ORDERED: cefTRIAXone 1,000 MG in SYRINGE 1 EACH IV SCH (21:00)
[2020-07-04] MEDS: INSULIN LISPRO 100 UNIT/ML SUBCUT SCH (21:39)
[2020-07-04] MEDS: DOCUSATE SODIUM 100 MG CAPSULE PO SCH (21:39)
[2020-07-04] MEDS: ATORVASTATIN 80 MG TABLET PO SCH (21:39)
[2020-07-04] MEDS: SODIUM CHLORIDE 0.9% 1,000 ML IV SCH (21:40)
[2020-07-04] MEDS: ACETAMINOPHEN 325 MG TABLET PO PRN (22:33)
[2020-07-05 05:53] LABS: Basophils % 0.3 % (0.0-0.8); Eosinophils # 0.1 10*3/uL (0.0-0.87); Eosinophils % 0.9 % (0.00-10.9); Hematocrit 23.3 VOL% (35.7-47.0); Hemoglobin 7.6 GM/DL (12.0-16.0); Immature Granulocytes % 0.7 %; Immature Granulocytes Absolute 0.08 #; Lymphocytes # 0.6 10*3/uL (1.4-4.0); Lymphocytes % 4.9 % (21.3-54.2); Mean Corpuscular HGB Conc 32.6 GM/DL (32-36); Mean Corpuscular Volume 96.7 FL (87-102); Mean Platelet Volume 11.8 FL (9.6-12.0); Monocytes % 10.9 % (1.7-12.7); Neutrophils % 82.3 % (38.7-73.9); Platelet Count 144 T/CUMM (130-400); Red Blood Count 2.41 MC/CUMM (3.8-5.5); Red Cell Distribution Width 14.9 % (9.3-17.3); White Blood Count 11.3 T/CUMM (4-12)
[2020-07-05 06:18] LABS: Eosinophils 1 % (0-10); Hypochromasia 1+; Lymphocytes 7 % (20-55); Platelet Estimate Normal; Segmented Neutrophils 85 % (50-85); Total Cells Counted 100
[2020-07-05 06:21] LABS: Albumin 2.1 G/DL (3.4-5.0); Bilirubin,Total 1.2 MG/DL (0.2-1.0); Osmolality,Calculated 308.7 MOS/KG (273-304); Potassium 4.2 MMOL/L (3.5-5.1); Total Protein 6.7 G/DL (6.4-8.3)
[2020-07-05] MEDS: ACETAMINOPHEN 325 MG TABLET PO PRN ×3 (07:36→20:07)
[2020-07-05] MEDS: DOCUSATE SODIUM 100 MG CAPSULE PO SCH ×2 (09:23→22:00)
[2020-07-05] MEDS: PANTOPRAZOLE 40 MG TABLET PO SCH (09:23)
[2020-07-05] MEDS: INSULIN LISPRO 100 UNIT/ML SUBCUT SCH ×4 (09:24→22:04)
[2020-07-05] MEDS: CEFEPIME 1,000 MG in SODIUM CHLORIDE 0.9% 100 ML IV SCH (12:06)
[2020-07-05 12:24] LABS: Amorphous Crystals,Urine Occasional /HPF (Few); Bacteria,Urine Moderate /HPF (Few); Bilirubin,Urine Negative (Negative); Blood, Urine Large mg/dL (Negative); Glucose,Urine (UA) Negative (Negative); Ketones,Urine Negative (Negative); Nitrite,Urine Negative (Negative); Protein,Urine 100 MG/DL; RBC,Urine 130 /HPF (0-4); Squamous Epithelial Cell,Urine Occasional /HPF (0-10); Urine Appearance CLOUDY (Clear); Urine Color Yellow (Yellow); Urine Specific Gravity 1.011 (1.001-1.035); Urine Urobilinogen < 2.0 EU/DL (0.2-1.0); WBC,Urine 31 /HPF (0-6)
[2020-07-05] MEDS: SODIUM CHLORIDE 0.9% 1,000 ML IV SCH ×2 (16:27→18:17)
[2020-07-05 17:33] LABS: Hepatitis B Core IgM Quant 0.08 Index; Hepatitis B Surface Ag Quant 0.83 Index; Hepatitis B Surface Ag Result Negative (Negative); Hepatitis C Virus Ab Quant 0.02 Index; Hepatitis C Virus Ab Result Negative (Negative)
[2020-07-05] MEDS ORDERED: PERMETHRIN 1% LOTION 59 ML BOTTLE TOP ONE (17:57)
[2020-07-05] MEDS: ATORVASTATIN 80 MG TABLET PO SCH (22:00)
[2020-07-06 05:32] LABS: Basophils % 0.3 % (0.0-0.8); Eosinophils # 0.1 10*3/uL (0.0-0.87); Hematocrit 24.3 VOL% (35.7-47.0); Hemoglobin 7.8 GM/DL (12.0-16.0); Immature Granulocytes % 1.9 %; Immature Granulocytes Absolute 0.13 #; Lymphocytes # 0.2 10*3/uL (1.4-4.0); Mean Corpuscular HGB Conc 32.1 GM/DL (32-36); Mean Platelet Volume 12.1 FL (9.6-12.0); Monocytes % 2.6 % (1.7-12.7); Neutrophils % 91.2 % (38.7-73.9); Platelet Count 145 T/CUMM (130-400); Red Blood Count 2.48 MC/CUMM (3.8-5.5); Red Cell Distribution Width 15.1 % (9.3-17.3)
[2020-07-06 05:55] LABS: Osmolality,Calculated 308.7 MOS/KG (273-304)
[2020-07-06 06:01] LABS: Free T4 (Free Thyroxine) 1.18 NG/DL (0.76-1.46); Thyroid Stimulating Hormone 0.987 uIU/ml (0.358-3.74)
[2020-07-06 06:03] LABS: Parathyroid Hormone Intact 381.4 PG/ML (18.4-80.1)
[2020-07-06 06:11] LABS: % Iron Saturation 17.8 % (18-50); Ferritin 3367.8 ng/ml (8-252); Uric Acid 6.1 MG/DL (2.6-6.0)
[2020-07-06] MEDS: ACETAMINOPHEN 325 MG TABLET PO PRN (06:26)
[2020-07-06] MEDS ORDERED: ceFAZolin 2,000 MG in PREMIX 1 EACH IV ONE (06:30)
[2020-07-06] MEDS: SODIUM CHLORIDE 0.9% 1,000 ML IV SCH ×2 (06:44→10:09)
[2020-07-06 06:53] LABS: Band Neutrophils 6 % (0-10); Hypochromasia 1+; Lymphocytes 2 % (20-55); Microcytosis 1+; Platelet Estimate Adequate; Segmented Neutrophils 88 % (50-85); Total Cells Counted 100
[2020-07-06] MEDS ORDERED: BUPIVACAINE MPF 0.25% 30 ML VIAL ONE (07:12)
[2020-07-06] MEDS ORDERED: HEPARIN 5,000 UNIT/1 ML VIAL ONE (07:12)
[2020-07-06] MEDS ORDERED: LIDOCAINE MPF 1% /EPI 30 ML VIAL ONE (07:12)
[2020-07-06] MEDS ORDERED: fentaNYL 100 MCG/2 ML VIAL ONE (08:31)
[2020-07-06] MEDS ORDERED: MIDAZOLAM 2 MG/2 ML VIAL ONE (08:49)
[2020-07-06 09:04] LABS: Folate > 24.0 NG/ML (5.4-24.0); Vitamin B12 1128 PG/ML (211-911)
[2020-07-06] MEDS: INSULIN LISPRO 100 UNIT/ML SUBCUT SCH ×4 (10:00→21:09)
[2020-07-06] MEDS: PANTOPRAZOLE 40 MG TABLET PO SCH (10:08)
[2020-07-06] MEDS: DOCUSATE SODIUM 100 MG CAPSULE PO SCH ×2 (10:08→21:09)
[2020-07-06] MEDS ORDERED: HEPARIN 10,000 UNIT/10 ML VIAL IV PRN (11:54)
[2020-07-06] MEDS: CHOLECALCIFEROL 1,000 UNIT TABLET PO SCH (13:26)
[2020-07-06] MEDS: CEFEPIME 1,000 MG in SODIUM CHLORIDE 0.9% 100 ML IV SCH (13:26)
[2020-07-06] MEDS: SEVELAMER CARBONATE 800 MG TABLET PO SCH (17:15)
[2020-07-06] MEDS: ATORVASTATIN 80 MG TABLET PO SCH (21:10)
[2020-07-07 06:44] LABS: Basophils % 0.3 % (0.0-0.8); Eosinophils # 0.2 10*3/uL (0.0-0.87); Hematocrit 22.5 VOL% (35.7-47.0); Hemoglobin 7.2 GM/DL (12.0-16.0); Immature Granulocytes % 1.6 %; Immature Granulocytes Absolute 0.24 #; Lymphocytes # 0.5 10*3/uL (1.4-4.0); Lymphocytes % 3.4 % (21.3-54.2); Mean Corpuscular Volume 98.7 FL (87-102); Mean Platelet Volume 12.1 FL (9.6-12.0); Monocytes % 11.8 % (1.7-12.7); Neutrophils % 81.9 % (38.7-73.9); Platelet Count 155 T/CUMM (130-400); Red Blood Count 2.28 MC/CUMM (3.8-5.5); Red Cell Distribution Width 15.8 % (9.3-17.3); White Blood Count 14.6 T/CUMM (4-12)
[2020-07-07 06:50] LABS: Calcium 7.6 MG/DL (8.5-10.1); Osmolality,Calculated 301.4 MOS/KG (273-304)
[2020-07-07] MEDS: SODIUM CHLORIDE 0.9% 1,000 ML IV SCH (06:54)
[2020-07-07 08:49] LABS: Band Neutrophils 2 % (0-10); Eosinophils 3 % (0-10); Lymphocytes 5 % (20-55); Platelet Estimate Adequate; Segmented Neutrophils 84 % (50-85); Total Cells Counted 100
[2020-07-07 08:50] LABS: Hypochromasia 2+
[2020-07-07] MEDS: INSULIN LISPRO 100 UNIT/ML SUBCUT SCH ×4 (09:13→21:45)
[2020-07-07] MEDS: CHOLECALCIFEROL 1,000 UNIT TABLET PO SCH (09:14)
[2020-07-07] MEDS: SEVELAMER CARBONATE 800 MG TABLET PO SCH ×3 (09:14→16:59)
[2020-07-07] MEDS: DOCUSATE SODIUM 100 MG CAPSULE PO SCH ×2 (09:14→21:45)
[2020-07-07] MEDS: PANTOPRAZOLE 40 MG TABLET PO SCH (09:14)
[2020-07-07] MEDS: CEFEPIME 1,000 MG in SODIUM CHLORIDE 0.9% 100 ML IV SCH (13:23)
[2020-07-07] MEDS: ATORVASTATIN 80 MG TABLET PO SCH (21:44)
[2020-07-08] MEDS: SODIUM CHLORIDE 0.9% 1,000 ML IV SCH (03:30)
[2020-07-08 06:48] LABS: Basophils % 0.2 % (0.0-0.8); Eosinophils # 0.3 10*3/uL (0.0-0.87); Eosinophils % 2.5 % (0.00-10.9); Hemoglobin 6.8 GM/DL (12.0-16.0); Immature Granulocytes % 1.6 %; Immature Granulocytes Absolute 0.21 #; Lymphocytes # 1.1 10*3/uL (1.4-4.0); Lymphocytes % 8.5 % (21.3-54.2); Mean Corpuscular HGB Conc 32.4 GM/DL (32-36); Mean Corpuscular Volume 98.1 FL (87-102); Mean Platelet Volume 11.1 FL (9.6-12.0); Neutrophils % 80.2 % (38.7-73.9); Platelet Count 146 T/CUMM (130-400); Red Blood Count 2.14 MC/CUMM (3.8-5.5); Red Cell Distribution Width 15.9 % (9.3-17.3); White Blood Count 13.1 T/CUMM (4-12)
[2020-07-08 07:14] LABS: Calcium 7.4 MG/DL (8.5-10.1); Osmolality,Calculated 296.8 MOS/KG (273-304)
[2020-07-08] MEDS ORDERED: SODIUM CHLORIDE 0.9% 1,000 ML IV PRN (07:50)
[2020-07-08] MEDS: INSULIN LISPRO 100 UNIT/ML SUBCUT SCH ×4 (08:55→22:34)
[2020-07-08] MEDS: SEVELAMER CARBONATE 800 MG TABLET PO SCH ×3 (09:27→17:45)
[2020-07-08] MEDS: CHOLECALCIFEROL 1,000 UNIT TABLET PO SCH (09:27)
[2020-07-08] MEDS: PANTOPRAZOLE 40 MG TABLET PO SCH (09:27)
[2020-07-08] MEDS: DOCUSATE SODIUM 100 MG CAPSULE PO SCH ×2 (09:27→22:34)
[2020-07-08] MEDS: CEFEPIME 1,000 MG in SODIUM CHLORIDE 0.9% 100 ML IV SCH (15:30)
[2020-07-08] MEDS: ATORVASTATIN 80 MG TABLET PO SCH (22:34)
[2020-07-09 06:20] LABS: Basophils # 0.1 10*3/uL (0.0-0.2); Basophils % 0.4 % (0.0-0.8); Eosinophils # 0.2 10*3/uL (0.0-0.87); Hematocrit 25.9 VOL% (35.7-47.0); Hemoglobin 8.5 GM/DL (12.0-16.0); Immature Granulocytes Absolute 0.17 #; Lymphocytes # 1.3 10*3/uL (1.4-4.0); Lymphocytes % 7.6 % (21.3-54.2); Mean Corpuscular HGB Conc 32.8 GM/DL (32-36); Mean Corpuscular Volume 92.5 FL (87-102); Monocytes % 7.7 % (1.7-12.7); Neutrophils % 82.3 % (38.7-73.9); Platelet Count 170 T/CUMM (130-400); Red Cell Distribution Width 20.5 % (9.3-17.3); White Blood Count 17.1 T/CUMM (4-12)
[2020-07-09 06:34] LABS: Calcium 8.1 MG/DL (8.5-10.1); Osmolality,Calculated 291.8 MOS/KG (273-304)
[2020-07-09] MEDS: SEVELAMER CARBONATE 800 MG TABLET PO SCH ×3 (08:30→17:28)
[2020-07-09] MEDS: SODIUM CHLORIDE 0.9% 1,000 ML IV SCH (12:20)
[2020-07-09] MEDS: INSULIN LISPRO 100 UNIT/ML SUBCUT SCH ×3 (12:20→21:32)
[2020-07-09] MEDS: CEFEPIME 1,000 MG in SODIUM CHLORIDE 0.9% 100 ML IV SCH (13:10)
[2020-07-09] MEDS: DOCUSATE SODIUM 100 MG CAPSULE PO SCH ×2 (13:10→21:30)
[2020-07-09] MEDS: CHOLECALCIFEROL 1,000 UNIT TABLET PO SCH (13:10)
[2020-07-09] MEDS: PANTOPRAZOLE 40 MG TABLET PO SCH (13:10)
[2020-07-09] MEDS ORDERED: DILTIAZEM 25 MG/5 ML VIAL IV ONE (19:45)
[2020-07-09] MEDS: ATORVASTATIN 80 MG TABLET PO SCH (21:30)
[2020-07-10 06:18] LABS: Basophils % 0.2 % (0.0-0.8); Eosinophils # 0.3 10*3/uL (0.0-0.87); Eosinophils % 1.3 % (0.00-10.9); Hemoglobin 8.7 GM/DL (12.0-16.0); Immature Granulocytes % 1.4 %; Immature Granulocytes Absolute 0.27 #; Lymphocytes # 1.4 10*3/uL (1.4-4.0); Lymphocytes % 7.5 % (21.3-54.2); Mean Corpuscular HGB Conc 33.5 GM/DL (32-36); Mean Corpuscular Volume 91.9 FL (87-102); Mean Platelet Volume 11.2 FL (9.6-12.0); Monocytes % 7.9 % (1.7-12.7); NRBC # 0.02 10*3/uL; Neutrophils % 81.7 % (38.7-73.9); Platelet Count 193 T/CUMM (130-400); Red Blood Count 2.83 MC/CUMM (3.8-5.5); Red Cell Distribution Width 19.9 % (9.3-17.3); White Blood Count 19.3 T/CUMM (4-12)
[2020-07-10 06:53] LABS: Calcium 8.4 MG/DL (8.5-10.1); Osmolality,Calculated 285.7 MOS/KG (273-304); Potassium 3.6 MMOL/L (3.5-5.1)
[2020-07-10 06:54] LABS: Calcium 8.3 MG/DL (8.5-10.1); Osmolality,Calculated 287.5 MOS/KG (273-304); Potassium 3.6 MMOL/L (3.5-5.1)
[2020-07-10] MEDS: SODIUM CHLORIDE 0.9% 1,000 ML IV SCH (09:16)
[2020-07-10] MEDS: INSULIN LISPRO 100 UNIT/ML SUBCUT SCH ×4 (09:16→21:17)
[2020-07-10] MEDS: DOCUSATE SODIUM 100 MG CAPSULE PO SCH ×2 (09:17→21:16)
[2020-07-10] MEDS: SEVELAMER CARBONATE 800 MG TABLET PO SCH ×3 (09:17→16:55)
[2020-07-10] MEDS: CHOLECALCIFEROL 1,000 UNIT TABLET PO SCH (09:17)
[2020-07-10] MEDS: PANTOPRAZOLE 40 MG TABLET PO SCH (09:17)
[2020-07-10] MEDS: CEFEPIME 1,000 MG in SODIUM CHLORIDE 0.9% 100 ML IV SCH (12:37)
[2020-07-10] MEDS: carvediloL 6.25 MG TABLET PO SCH ×2 (12:38→21:16)
[2020-07-10] MEDS: traMADol 50 MG TABLET PO PRN (14:51)
[2020-07-10] MEDS: ASCORBIC ACID 500 MG TABLET PO SCH ×2 (14:52→21:16)
[2020-07-10] MEDS: HYDROmorphone 2 MG/1 ML VIAL IV PRN ×2 (20:48→23:49)
[2020-07-10] MEDS: ATORVASTATIN 80 MG TABLET PO SCH (21:16)
[2020-07-10] MEDS: ONDANSETRON 4 MG/2 ML VIAL IV PRN (21:16)
[2020-07-11] MEDS: HYDROmorphone 2 MG/1 ML VIAL IV PRN (03:54)
[2020-07-11 06:14] LABS: Basophils # 0.1 10*3/uL (0.0-0.2); Basophils % 0.3 % (0.0-0.8); Eosinophils # 0.2 10*3/uL (0.0-0.87); Eosinophils % 0.8 % (0.00-10.9); Immature Granulocytes % 1.8 %; Immature Granulocytes Absolute 0.38 #; Lymphocytes # 1.2 10*3/uL (1.4-4.0); Lymphocytes % 5.8 % (21.3-54.2); Mean Corpuscular HGB Conc 32.1 GM/DL (32-36); Mean Corpuscular Volume 93.3 FL (87-102); Monocytes % 6.8 % (1.7-12.7); Neutrophils % 84.5 % (38.7-73.9); Platelet Count 212 T/CUMM (130-400); Red Cell Distribution Width 19.3 % (9.3-17.3); White Blood Count 21.2 T/CUMM (4-12)
[2020-07-11 06:30] LABS: Calcium 8.3 MG/DL (8.5-10.1); Osmolality,Calculated 291.8 MOS/KG (273-304); Potassium 3.8 MMOL/L (3.5-5.1)
[2020-07-11 06:41] LABS: Eosinophils 2 % (0-10); Hypochromasia 1+; Lymphocytes 3 % (20-55); Microcytosis 1+; Ovalocytes Slight; Platelet Estimate Adequate; Segmented Neutrophils 89 % (50-85); Total Cells Counted 100
[2020-07-11] MEDS: INSULIN LISPRO 100 UNIT/ML SUBCUT SCH ×4 (09:40→21:32)
[2020-07-11] MEDS: SEVELAMER CARBONATE 800 MG TABLET PO SCH ×3 (09:41→16:54)
[2020-07-11] MEDS: carvediloL 6.25 MG TABLET PO SCH (09:41)
[2020-07-11] MEDS: DOCUSATE SODIUM 100 MG CAPSULE PO SCH ×2 (09:41→21:31)
[2020-07-11] MEDS: ASCORBIC ACID 500 MG TABLET PO SCH ×2 (09:41→21:32)
[2020-07-11] MEDS: PANTOPRAZOLE 40 MG TABLET PO SCH (09:41)
[2020-07-11] MEDS: CHOLECALCIFEROL 1,000 UNIT TABLET PO SCH (09:41)
[2020-07-11] MEDS: CEFEPIME 1,000 MG in SODIUM CHLORIDE 0.9% 100 ML IV SCH (12:31)
[2020-07-11] MEDS: ATORVASTATIN 80 MG TABLET PO SCH (21:31)
[2020-07-11] MEDS: carvediloL 12.5 MG TABLET PO SCH (21:32)
[2020-07-12] MEDS: INSULIN LISPRO 100 UNIT/ML SUBCUT SCH ×5 (09:39→21:08)
[2020-07-12] MEDS: CHOLECALCIFEROL 1,000 UNIT TABLET PO SCH (09:39)
[2020-07-12] MEDS: DOCUSATE SODIUM 100 MG CAPSULE PO SCH ×2 (09:39→20:00)
[2020-07-12] MEDS: carvediloL 12.5 MG TABLET PO SCH ×2 (09:40→20:00)
[2020-07-12] MEDS: PANTOPRAZOLE 40 MG TABLET PO SCH (09:40)
[2020-07-12] MEDS: SEVELAMER CARBONATE 800 MG TABLET PO SCH ×3 (09:40→17:51)
[2020-07-12] MEDS: ASCORBIC ACID 500 MG TABLET PO SCH ×2 (09:40→20:00)
[2020-07-12] MEDS: traMADol 50 MG TABLET PO PRN (09:40)
[2020-07-12 12:16] LABS: Basophils # 0.1 10*3/uL (0.0-0.2); Basophils % 0.3 % (0.0-0.8); Eosinophils # 0.1 10*3/uL (0.0-0.87); Eosinophils % 0.3 % (0.00-10.9); Hematocrit 25.4 VOL% (35.7-47.0); Hemoglobin 8.3 GM/DL (12.0-16.0); Immature Granulocytes % 3.8 %; Immature Granulocytes Absolute 1.36 #; Lymphocytes # 1.3 10*3/uL (1.4-4.0); Lymphocytes % 3.7 % (21.3-54.2); Mean Corpuscular HGB Conc 32.7 GM/DL (32-36); Mean Corpuscular Volume 94.4 FL (87-102); Mean Platelet Volume 10.5 FL (9.6-12.0); NRBC # 0.03 10*3/uL; Neutrophils % 85.9 % (38.7-73.9); Platelet Count 228 T/CUMM (130-400); Red Blood Count 2.69 MC/CUMM (3.8-5.5); Red Cell Distribution Width 18.7 % (9.3-17.3)
[2020-07-12] MEDS: CEFEPIME 1,000 MG in SODIUM CHLORIDE 0.9% 100 ML IV SCH (12:25)
[2020-07-12 12:47] LABS: Osmolality,Calculated 286.2 MOS/KG (273-304)
[2020-07-12 13:25] LABS: Hypochromasia 3+; Lymphocytes 4 % (20-55); Polychromasia Slight; Segmented Neutrophils 96 % (50-85); Total Cells Counted 100
[2020-07-12 13:26] LABS: Platelet Estimate Normal
[2020-07-12] MEDS: AMIODARONE 200 MG TABLET PO SCH ×2 (14:35→20:00)
[2020-07-12] MEDS ORDERED: AMIODARONE INJ 150 MG in DEXTROSE 5% 100 ML IV ONE (17:00)
[2020-07-12] MEDS ORDERED: AMIODARONE INJ 450 MG in DEXTROSE 5% 241 ML IV SCH (17:00)
[2020-07-12] MEDS: ATORVASTATIN 80 MG TABLET PO SCH (20:00)
[2020-07-13] MEDS: AMIODARONE INJ 450 MG in DEXTROSE 5% 241 ML IV SCH ×2 (03:11→14:57)
[2020-07-13 05:10] LABS: Basophils # 0.1 10*3/uL (0.0-0.2); Basophils % 0.3 % (0.0-0.8); Eosinophils # 0.3 10*3/uL (0.0-0.87); Eosinophils % 0.9 % (0.00-10.9); Hematocrit 25.3 VOL% (35.7-47.0); Hemoglobin 8.2 GM/DL (12.0-16.0); Immature Granulocytes % 3.6 %; Immature Granulocytes Absolute 1.31 #; Lymphocytes # 1.2 10*3/uL (1.4-4.0); Lymphocytes % 3.1 % (21.3-54.2); Mean Corpuscular HGB Conc 32.4 GM/DL (32-36); Mean Corpuscular Volume 94.1 FL (87-102); Mean Platelet Volume 10.9 FL (9.6-12.0); Monocytes % 6.6 % (1.7-12.7); Neutrophils % 85.5 % (38.7-73.9); Platelet Count 234 T/CUMM (130-400); Red Blood Count 2.69 MC/CUMM (3.8-5.5); Red Cell Distribution Width 18.7 % (9.3-17.3); White Blood Count 36.7 T/CUMM (4-12)
[2020-07-13 05:29] LABS: Calcium 8.3 MG/DL (8.5-10.1); Osmolality,Calculated 287.2 MOS/KG (273-304)
[2020-07-13 05:31] LABS: Hypochromasia 1+; Lymphocytes 9 % (20-55); Microcytosis 1+; Platelet Estimate Adequate; Segmented Neutrophils 87 % (50-85); Total Cells Counted 100
[2020-07-13] MEDS: INSULIN LISPRO 100 UNIT/ML SUBCUT SCH ×3 (08:06→16:13)
[2020-07-13] MEDS: DOCUSATE SODIUM 100 MG CAPSULE PO SCH ×2 (09:20→21:08)
[2020-07-13] MEDS: CHOLECALCIFEROL 1,000 UNIT TABLET PO SCH (09:20)
[2020-07-13] MEDS: AMIODARONE 200 MG TABLET PO SCH ×2 (09:21→21:08)
[2020-07-13] MEDS: carvediloL 12.5 MG TABLET PO SCH ×2 (09:21→21:08)
[2020-07-13] MEDS: PANTOPRAZOLE 40 MG TABLET PO SCH (09:21)
[2020-07-13] MEDS: ASCORBIC ACID 500 MG TABLET PO SCH ×2 (09:21→21:08)
[2020-07-13] MEDS: SEVELAMER CARBONATE 800 MG TABLET PO SCH ×3 (09:21→17:19)
[2020-07-13] MEDS: traMADol 50 MG TABLET PO PRN (09:26)
[2020-07-13] MEDS: cefTRIAXone 1,000 MG in SYRINGE 1 EACH IV SCH (11:18)
[2020-07-13 12:05] LABS: Albumin 1.5 G/DL (3.4-5.0); Bilirubin,Direct 0.57 MG/DL (0.0-0.20); Bilirubin,Indirect 0.3 MG/DL (0.0-1.0); Bilirubin,Total 0.9 MG/DL (0.2-1.0); Total Protein 7.1 G/DL (6.4-8.3)
[2020-07-13] MEDS: metroNIDAZOLE INJ 500 MG in PREMIX 1 EACH IV SCH (15:55)
[2020-07-13 18:11] LABS: Basophils # 0.1 10*3/uL (0.0-0.2); Basophils % 0.2 % (0.0-0.8); Eosinophils # 0.2 10*3/uL (0.0-0.87); Eosinophils % 0.4 % (0.00-10.9); Hematocrit 27.4 VOL% (35.7-47.0); Hemoglobin 8.8 GM/DL (12.0-16.0); Immature Granulocytes % 5.1 %; Immature Granulocytes Absolute 2.24 #; Lymphocytes # 1.3 10*3/uL (1.4-4.0); Mean Corpuscular HGB Conc 32.1 GM/DL (32-36); Mean Corpuscular Volume 94.5 FL (87-102); Mean Platelet Volume 10.5 FL (9.6-12.0); Monocytes % 5.5 % (1.7-12.7); NRBC # 0.02 10*3/uL; Neutrophils % 85.8 % (38.7-73.9); Platelet Count 229 T/CUMM (130-400); Red Cell Distribution Width 18.6 % (9.3-17.3)
[2020-07-13 18:15] LABS: White Blood Count 43.8 T/CUMM (4-12)
[2020-07-13 18:20] LABS: INR 1.1; PT Patient Result 11.9 SECS (9.8-11.9)
[2020-07-13 18:32] LABS: Eosinophils 1 % (0-10); Lymphocytes 3 % (20-55); Segmented Neutrophils 89 % (50-85); Total Cells Counted 100
[2020-07-13 18:34] LABS: Anisocytosis 1+; Burr Cells Few; Elliptocytes Few; Hypochromasia 1+; Platelet Estimate Adequate; Polychromasia Few; Target Cells Few
[2020-07-13] MEDS: ATORVASTATIN 80 MG TABLET PO SCH (21:08)
[2020-07-14] MEDS: metroNIDAZOLE INJ 500 MG in PREMIX 1 EACH IV SCH ×4 (01:55→22:52)
[2020-07-14 05:39] LABS: Basophils # 0.1 10*3/uL (0.0-0.2); Basophils % 0.4 % (0.0-0.8); Eosinophils # 0.2 10*3/uL (0.0-0.87); Eosinophils % 0.5 % (0.00-10.9); Hematocrit 25.2 VOL% (35.7-47.0); Immature Granulocytes % 4.5 %; Immature Granulocytes Absolute 1.75 #; Lymphocytes # 1.4 10*3/uL (1.4-4.0); Lymphocytes % 3.5 % (21.3-54.2); Mean Corpuscular HGB Conc 31.7 GM/DL (32-36); Mean Corpuscular Volume 95.5 FL (87-102); Mean Platelet Volume 10.9 FL (9.6-12.0); Neutrophils % 85.1 % (38.7-73.9); Platelet Count 246 T/CUMM (130-400); Red Blood Count 2.64 MC/CUMM (3.8-5.5); Red Cell Distribution Width 18.6 % (9.3-17.3); White Blood Count 38.7 T/CUMM (4-12)
[2020-07-14 06:04] LABS: Anisocytosis 2+; Band Neutrophils 17 % (0-10); Hypochromasia Slight; Lymphocytes 6 % (20-55); Metamyelocytes 2 %; Platelet Estimate Normal; Segmented Neutrophils 68 % (50-85); Total Cells Counted 100
[2020-07-14 06:05] LABS: Calcium 8.4 MG/DL (8.5-10.1); Macrocytosis Slight
[2020-07-14] MEDS: AMIODARONE INJ 450 MG in DEXTROSE 5% 241 ML IV SCH ×2 (07:53→20:34)
[2020-07-14] MEDS: DOCUSATE SODIUM 100 MG CAPSULE PO SCH ×2 (08:30→20:34)
[2020-07-14] MEDS: INSULIN LISPRO 100 UNIT/ML SUBCUT SCH ×4 (08:30→20:35)
[2020-07-14] MEDS: SEVELAMER CARBONATE 800 MG TABLET PO SCH ×3 (08:30→16:20)
[2020-07-14] MEDS ORDERED: DIAZEPAM 5 MG TABLET ONE (08:59)
[2020-07-14] MEDS: CHOLECALCIFEROL 1,000 UNIT TABLET PO SCH (09:38)
[2020-07-14] MEDS: carvediloL 12.5 MG TABLET PO SCH ×2 (09:38→20:34)
[2020-07-14] MEDS: ASCORBIC ACID 500 MG TABLET PO SCH ×2 (09:38→20:34)
[2020-07-14] MEDS: AMIODARONE 200 MG TABLET PO SCH ×2 (09:38→20:34)
[2020-07-14] MEDS: cefTRIAXone 1,000 MG in SYRINGE 1 EACH IV SCH (09:38)
[2020-07-14] MEDS: PANTOPRAZOLE 40 MG TABLET PO SCH (09:38)
[2020-07-14] MEDS ORDERED: MIDAZOLAM 2 MG/2 ML VIAL IV ONE (10:00)
[2020-07-14] MEDS ORDERED: fentaNYL 100 MCG/2 ML VIAL IV ONE (10:00)
[2020-07-14] MEDS ORDERED: DIAZEPAM 5 MG TABLET PO ONE (10:00)
[2020-07-14] MEDS: ONDANSETRON 4 MG/2 ML VIAL IV PRN ×2 (11:05→17:40)
[2020-07-14] MEDS ORDERED: TUBERCULIN SKIN TEST 0.1 ML SYRINGE INTRADERM ONE (11:06)
[2020-07-14] MEDS: HYDROmorphone 2 MG/1 ML VIAL IV PRN (17:40)
[2020-07-14] MEDS: ATORVASTATIN 80 MG TABLET PO SCH (20:34)
[2020-07-15] MEDS: ACETAMINOPHEN 325 MG TABLET PO PRN (02:27)
[2020-07-15 05:45] LABS: Basophils # 0.1 10*3/uL (0.0-0.2); Basophils % 0.4 % (0.0-0.8); Eosinophils # 0.2 10*3/uL (0.0-0.87); Eosinophils % 0.5 % (0.00-10.9); Hematocrit 25.1 VOL% (35.7-47.0); Hemoglobin 7.8 GM/DL (12.0-16.0); Immature Granulocytes % 2.6 %; Immature Granulocytes Absolute 0.74 #; Lymphocytes # 1.4 10*3/uL (1.4-4.0); Mean Corpuscular HGB Conc 31.1 GM/DL (32-36); Mean Platelet Volume 10.7 FL (9.6-12.0); Monocytes % 6.8 % (1.7-12.7); Neutrophils % 84.7 % (38.7-73.9); Platelet Count 303 T/CUMM (130-400); Red Blood Count 2.56 MC/CUMM (3.8-5.5); Red Cell Distribution Width 19.1 % (9.3-17.3); White Blood Count 27.9 T/CUMM (4-12)
[2020-07-15 05:58] LABS: Calcium 8.2 MG/DL (8.5-10.1); Osmolality,Calculated 287.8 MOS/KG (273-304); Potassium 4.2 MMOL/L (3.5-5.1)
[2020-07-15] MEDS: metroNIDAZOLE INJ 500 MG in PREMIX 1 EACH IV SCH ×3 (06:05→22:00)
[2020-07-15 06:11] LABS: Lymphocytes 5 % (20-55); Platelet Estimate Adequate; Segmented Neutrophils 87 % (50-85); Total Cells Counted 100
[2020-07-15 06:12] LABS: Hypochromasia 2+; Microcytosis 1+
[2020-07-15] MEDS: cefTRIAXone 1,000 MG in SYRINGE 1 EACH IV SCH (09:35)
[2020-07-15] MEDS: INSULIN LISPRO 100 UNIT/ML SUBCUT SCH ×4 (09:35→21:48)
[2020-07-15] MEDS: PANTOPRAZOLE 40 MG TABLET PO SCH (09:36)
[2020-07-15] MEDS: SEVELAMER CARBONATE 800 MG TABLET PO SCH ×3 (09:36→16:32)
[2020-07-15] MEDS: carvediloL 12.5 MG TABLET PO SCH ×2 (09:36→22:19)
[2020-07-15] MEDS: CHOLECALCIFEROL 1,000 UNIT TABLET PO SCH (09:36)
[2020-07-15] MEDS: DOCUSATE SODIUM 100 MG CAPSULE PO SCH ×3 (09:36→22:19)
[2020-07-15] MEDS: ASCORBIC ACID 500 MG TABLET PO SCH ×3 (09:36→22:20)
[2020-07-15] MEDS: traMADol 50 MG TABLET PO PRN (09:37)
[2020-07-15] MEDS: AMIODARONE 200 MG TABLET PO SCH ×2 (09:37→22:19)
[2020-07-15] MEDS: AMIODARONE INJ 450 MG in DEXTROSE 5% 241 ML IV SCH (11:12)
[2020-07-15] MEDS: ONDANSETRON 4 MG/2 ML VIAL IV PRN (16:31)
[2020-07-15] MEDS: HYDROmorphone 2 MG/1 ML VIAL IV PRN (16:32)
[2020-07-15] MEDS ORDERED: SODIUM CHLORIDE 0.9% 250 ML IV ONE (19:34)
[2020-07-15] MEDS: ATORVASTATIN 80 MG TABLET PO SCH ×2 (21:47→22:20)
[2020-07-16] MEDS: AMIODARONE INJ 450 MG in DEXTROSE 5% 241 ML IV SCH (03:13)
[2020-07-16 05:37] LABS: Basophils # 0.2 10*3/uL (0.0-0.2); Basophils % 0.7 % (0.0-0.8); Eosinophils # 0.1 10*3/uL (0.0-0.87); Eosinophils % 0.2 % (0.00-10.9); Hematocrit 27.7 VOL% (35.7-47.0); Hemoglobin 8.6 GM/DL (12.0-16.0); Immature Granulocytes % 8.2 %; Immature Granulocytes Absolute 2.01 #; Lymphocytes # 1.2 10*3/uL (1.4-4.0); Lymphocytes % 5.1 % (21.3-54.2); Mean Corpuscular Volume 97.9 FL (87-102); Mean Platelet Volume 10.5 FL (9.6-12.0); Monocytes % 5.5 % (1.7-12.7); NRBC # 0.07 10*3/uL; Neutrophils % 80.3 % (38.7-73.9); Platelet Count 239 T/CUMM (130-400); Red Blood Count 2.83 MC/CUMM (3.8-5.5); Red Cell Distribution Width 19.6 % (9.3-17.3); White Blood Count 24.4 T/CUMM (4-12)
[2020-07-16 05:58] LABS: Calcium 8.6 MG/DL (8.5-10.1); Osmolality,Calculated 284.8 MOS/KG (273-304); Potassium 5.4 MMOL/L (3.5-5.1)
[2020-07-16] MEDS: metroNIDAZOLE INJ 500 MG in PREMIX 1 EACH IV SCH ×3 (06:09→22:02)
[2020-07-16 06:40] LABS: Band Neutrophils 2 % (0-10); Hypochromasia 1+; Lymphocytes 6 % (20-55); Microcytosis 1+; Nucleated Red Blood Cells 1 (0-5); Ovalocytes Slight; Platelet Estimate Adequate; Segmented Neutrophils 84 % (50-85); Total Cells Counted 100
[2020-07-16 07:49] LABS: Albumin 1.6 G/DL (3.4-5.0); Bilirubin,Direct 0.6 MG/DL (0.0-0.20); Bilirubin,Indirect 0.4 MG/DL (0.0-1.0); Total Protein 7.8 G/DL (6.4-8.3)
[2020-07-16] MEDS: ONDANSETRON 4 MG/2 ML VIAL IV PRN (09:34)
[2020-07-16] MEDS: INSULIN LISPRO 100 UNIT/ML SUBCUT SCH ×4 (09:34→21:00)
[2020-07-16] MEDS: DOCUSATE SODIUM 100 MG CAPSULE PO SCH ×2 (09:35→21:00)
[2020-07-16] MEDS: cefTRIAXone 1,000 MG in SYRINGE 1 EACH IV SCH (09:35)
[2020-07-16] MEDS: ASCORBIC ACID 500 MG TABLET PO SCH ×2 (09:35→21:00)
[2020-07-16] MEDS: AMIODARONE 200 MG TABLET PO SCH (09:36)
[2020-07-16] MEDS: traMADol 50 MG TABLET PO PRN (09:36)
[2020-07-16] MEDS: SEVELAMER CARBONATE 800 MG TABLET PO SCH ×3 (09:36→16:26)
[2020-07-16] MEDS: CHOLECALCIFEROL 1,000 UNIT TABLET PO SCH (09:36)
[2020-07-16] MEDS: PANTOPRAZOLE 40 MG TABLET PO SCH (09:36)
[2020-07-16] MEDS: carvediloL 12.5 MG TABLET PO SCH ×2 (09:36→21:00)
[2020-07-16] MEDS: ATORVASTATIN 80 MG TABLET PO SCH (21:00)
[2020-07-17] MEDS: metroNIDAZOLE INJ 500 MG in PREMIX 1 EACH IV SCH ×3 (06:10→22:47)
[2020-07-17 06:20] LABS: Basophils # 0.1 10*3/uL (0.0-0.2); Basophils % 0.4 % (0.0-0.8); Eosinophils # 0.1 10*3/uL (0.0-0.87); Eosinophils % 0.4 % (0.00-10.9); Hematocrit 24.9 VOL% (35.7-47.0); Hemoglobin 7.7 GM/DL (12.0-16.0); Immature Granulocytes % 6.4 %; Immature Granulocytes Absolute 1.53 #; Lymphocytes # 1.7 10*3/uL (1.4-4.0); Lymphocytes % 7.2 % (21.3-54.2); Mean Corpuscular HGB Conc 30.9 GM/DL (32-36); Mean Corpuscular Volume 96.1 FL (87-102); Mean Platelet Volume 10.4 FL (9.6-12.0); Monocytes % 7.2 % (1.7-12.7); NRBC # 0.21 10*3/uL; Neutrophils % 78.4 % (38.7-73.9); Platelet Count 284 T/CUMM (130-400); Red Blood Count 2.59 MC/CUMM (3.8-5.5); Red Cell Distribution Width 20.1 % (9.3-17.3)
[2020-07-17 06:42] LABS: Eosinophils 1 % (0-10); Hypochromasia 2+; Lymphocytes 7 % (20-55); Microcytosis 1+; Nucleated Red Blood Cells 1 (0-5); Platelet Estimate Adequate; Segmented Neutrophils 83 % (50-85); Total Cells Counted 100
[2020-07-17 06:44] LABS: Calcium 8.1 MG/DL (8.5-10.1); Osmolality,Calculated 293.8 MOS/KG (273-304); Potassium 4.4 MMOL/L (3.5-5.1)
[2020-07-17] MEDS: INSULIN LISPRO 100 UNIT/ML SUBCUT SCH ×4 (09:10→20:51)
[2020-07-17] MEDS: PANTOPRAZOLE 40 MG TABLET PO SCH (09:12)
[2020-07-17] MEDS: carvediloL 12.5 MG TABLET PO SCH ×2 (09:12→20:50)
[2020-07-17] MEDS: CHOLECALCIFEROL 1,000 UNIT TABLET PO SCH (09:12)
[2020-07-17] MEDS: DOCUSATE SODIUM 100 MG CAPSULE PO SCH ×2 (09:12→20:50)
[2020-07-17] MEDS: SEVELAMER CARBONATE 800 MG TABLET PO SCH ×3 (09:12→17:25)
[2020-07-17] MEDS: ASCORBIC ACID 500 MG TABLET PO SCH ×2 (09:12→20:50)
[2020-07-17] MEDS: cefTRIAXone 1,000 MG in SYRINGE 1 EACH IV SCH (09:15)
[2020-07-17] MEDS: traMADol 50 MG TABLET PO PRN (16:42)
[2020-07-17] MEDS: ATORVASTATIN 80 MG TABLET PO SCH (20:50)
[2020-07-17] MEDS: AMIODARONE 200 MG TABLET PO SCH (20:51)
[2020-07-18] MEDS: traMADol 50 MG TABLET PO PRN (00:45)
[2020-07-18 05:52] LABS: Basophils # 0.1 10*3/uL (0.0-0.2); Basophils % 0.5 % (0.0-0.8); Eosinophils # 0.2 10*3/uL (0.0-0.87); Eosinophils % 0.9 % (0.00-10.9); Hematocrit 24.4 VOL% (35.7-47.0); Hemoglobin 7.7 GM/DL (12.0-16.0); Immature Granulocytes % 7.4 %; Immature Granulocytes Absolute 1.79 #; Lymphocytes % 8.3 % (21.3-54.2); Mean Corpuscular HGB Conc 31.6 GM/DL (32-36); Mean Platelet Volume 10.9 FL (9.6-12.0); Monocytes % 7.8 % (1.7-12.7); NRBC # 0.37 10*3/uL; Neutrophils % 75.1 % (38.7-73.9); Platelet Count 309 T/CUMM (130-400); Red Blood Count 2.49 MC/CUMM (3.8-5.5); Red Cell Distribution Width 20.3 % (9.3-17.3); White Blood Count 24.1 T/CUMM (4-12)
[2020-07-18] MEDS: metroNIDAZOLE INJ 500 MG in PREMIX 1 EACH IV SCH ×3 (06:11→22:13)
[2020-07-18 06:18] LABS: Band Neutrophils 2 % (0-10); Eosinophils 3 % (0-10); Hypochromasia 2+; Lymphocytes 11 % (20-55); Microcytosis 1+; Nucleated Red Blood Cells 4 (0-5); Platelet Estimate Adequate; Segmented Neutrophils 80 % (50-85); Total Cells Counted 100
[2020-07-18 06:52] LABS: Calcium 7.4 MG/DL (8.5-10.1); Osmolality,Calculated 297.7 MOS/KG (273-304); Potassium 5.1 MMOL/L (3.5-5.1)
[2020-07-18] MEDS: cefTRIAXone 1,000 MG in SYRINGE 1 EACH IV SCH (10:24)
[2020-07-18] MEDS: INSULIN LISPRO 100 UNIT/ML SUBCUT SCH ×4 (10:25→20:17)
[2020-07-18] MEDS: DOCUSATE SODIUM 100 MG CAPSULE PO SCH ×2 (10:25→20:17)
[2020-07-18] MEDS: CHOLECALCIFEROL 1,000 UNIT TABLET PO SCH (10:25)
[2020-07-18] MEDS: ASCORBIC ACID 500 MG TABLET PO SCH ×2 (10:25→20:17)
[2020-07-18] MEDS: AMIODARONE 200 MG TABLET PO SCH ×2 (10:26→12:35)
[2020-07-18] MEDS: SEVELAMER CARBONATE 800 MG TABLET PO SCH ×3 (10:26→18:04)
[2020-07-18] MEDS: PANTOPRAZOLE 40 MG TABLET PO SCH (10:26)
[2020-07-18] MEDS: carvediloL 12.5 MG TABLET PO SCH ×2 (10:26→20:17)
[2020-07-18] MEDS ORDERED: EPOETIN ALFA-EPBX 10,000 UNIT/ML VIAL IV PRN (11:44)
[2020-07-18] MEDS ORDERED: traMADol 50 MG TABLET PO PRN (15:51)
[2020-07-18] MEDS: ATORVASTATIN 80 MG TABLET PO SCH (20:17)
[2020-07-19] MEDS: metroNIDAZOLE INJ 500 MG in PREMIX 1 EACH IV SCH (06:11)
[2020-07-19] MEDS: INSULIN LISPRO 100 UNIT/ML SUBCUT SCH ×2 (07:28→12:56)
[2020-07-19] MEDS ORDERED: AMIODARONE 200 MG TABLET PO SCH (09:00)
[2020-07-19] MEDS: SEVELAMER CARBONATE 800 MG TABLET PO SCH ×2 (09:30→13:10)
[2020-07-19] MEDS: DOCUSATE SODIUM 100 MG CAPSULE PO SCH (09:30)
[2020-07-19] MEDS: PANTOPRAZOLE 40 MG TABLET PO SCH (09:30)
[2020-07-19] MEDS: CHOLECALCIFEROL 1,000 UNIT TABLET PO SCH (09:31)
[2020-07-19] MEDS: cefTRIAXone 1,000 MG in SYRINGE 1 EACH IV SCH (09:31)
[2020-07-19] MEDS: ASCORBIC ACID 500 MG TABLET PO SCH (09:31)
[2020-07-19] MEDS ORDERED: BISACODYL 10 MG SUPP RECTAL ONE (10:18)
[2020-07-19] MEDS ORDERED: POLYETHYLENE GLYCOL POWDER 17 GM PACK PO SCH (10:30)
[2020-07-19 11:36] LABS: Basophils # 0.2 10*3/uL (0.0-0.2); Basophils % 0.5 % (0.0-0.8); Eosinophils # 0.2 10*3/uL (0.0-0.87); Eosinophils % 0.5 % (0.00-10.9); Hemoglobin 7.8 GM/DL (12.0-16.0); Immature Granulocytes % 8.6 %; Immature Granulocytes Absolute 2.58 #; Lymphocytes # 1.8 10*3/uL (1.4-4.0); Lymphocytes % 5.9 % (21.3-54.2); Mean Corpuscular HGB Conc 31.2 GM/DL (32-36); Mean Corpuscular Volume 97.3 FL (87-102); Mean Platelet Volume 10.1 FL (9.6-12.0); Monocytes % 6.7 % (1.7-12.7); NRBC # 2.17 10*3/uL; Neutrophils % 77.8 % (38.7-73.9); Platelet Count 334 T/CUMM (130-400); Red Blood Count 2.57 MC/CUMM (3.8-5.5); Red Cell Distribution Width 20.6 % (9.3-17.3); White Blood Count 30.1 T/CUMM (4-12)
[2020-07-19 11:56] LABS: Albumin 1.9 G/DL (3.4-5.0); Bilirubin,Total 1.1 MG/DL (0.2-1.0); Calcium 8.5 MG/DL (8.5-10.1); Osmolality,Calculated 267.2 MOS/KG (273-304); Potassium 3.6 MMOL/L (3.5-5.1); Total Protein 8.4 G/DL (6.4-8.3)
[2020-07-19 12:03] LABS: Band Neutrophils 19 % (0-10); Eosinophils 2 % (0-10); Lymphocytes 9 % (20-55); Metamyelocytes 2 %; Myelocytes 1 %; Nucleated Red Blood Cells 10 (0-5); Platelet Estimate Normal; Segmented Neutrophils 58 % (50-85); Total Cells Counted 100
[2020-07-19 12:04] LABS: Anisocytosis 1+
[2020-07-19 12:05] LABS: Macrocytosis Slight
[2020-07-19] MEDS: carvediloL 12.5 MG TABLET PO SCH (12:55)
[2020-07-19 14:45] VITALS: BP 116/64
== END 2020-07-19 15:57 | disposition swing bed (61) | DRG 871 ==
LOC: N.TELES
PROVIDERS: ADMIT Family Medicine; ATTEND Family Medicine

== ENCOUNTER 2021-10-25 10:25 | Inpatient (IN) ==
[2021-10-25] MEDS ORDERED: GLUCAGON 1 MG VIAL IM PRN (13:09)
[2021-10-25] MEDS ORDERED: MAGNESIUM SULF RIDER 2 GM/50 ML PREMIX IV PRN (13:09)
[2021-10-25] MEDS ORDERED: ONDANSETRON 4 MG/2 ML VIAL IV PRN (13:09)
[2021-10-25] MEDS ORDERED: MAGNESIUM SULF RIDER 4 GM/100 ML PREMIX IV PRN (13:09)
[2021-10-25] MEDS ORDERED: DEXTROSE 10% 250 ML BAG IV PRN (13:09)
[2021-10-25] MEDS ORDERED: POTASSIUM CHLORIDE RIDER 10 MEQ/100 ML PREMIX IV PRN (13:11)
[2021-10-25 15:12] LABS: Basophils # 0.1 10*3/uL (0.0-0.2); Basophils % 0.8 % (0.0-0.8); Eosinophils # 0.1 10*3/uL (0.0-0.87); Eosinophils % 1.4 % (0.00-10.9); Hematocrit 31.8 VOL% (35.7-47.0); Hemoglobin 10.3 GM/DL (12.0-16.0); Immature Granulocytes % 0.3 %; Immature Granulocytes Absolute 0.02 #; Lymphocytes # 1.4 10*3/uL (1.4-4.0); Lymphocytes % 19.8 % (21.3-54.2); Mean Corpuscular HGB Conc 32.4 GM/DL (32-36); Mean Corpuscular Volume 99.1 FL (87-102); Mean Platelet Volume 12.4 FL (9.6-12.0); Monocytes # 0.9 10*3/uL (0.11-0.8); Monocytes % 12.7 % (1.7-12.7); Platelet Count 129 T/CUMM (130-400); Red Blood Count 3.21 MC/CUMM (3.8-5.5); Red Cell Distribution Width 15.2 % (9.3-17.3); White Blood Count 7.2 T/CUMM (4-12)
[2021-10-25 15:34] LABS: Albumin 3.2 G/DL (3.4-5.0); Bilirubin,Total 0.5 MG/DL (0.20-1.00); Calcium 8.5 MG/DL (8.5-10.1); Osmolality,Calculated 292.1 MOS/KG (273-304); Potassium 3.5 MMOL/L (3.5-5.1); Total Protein 7.3 G/DL (6.4-8.2)
[2021-10-25 15:41] LABS: Free T4 (Free Thyroxine) 1.23 NG/DL (0.76-1.46); Thyroid Stimulating Hormone 1.66 uIU/ml (0.358-3.74)
[2021-10-25] MEDS: INSULIN REGULAR 100 UNIT/ML SUBCUT SCH ×2 (16:37→21:55)
[2021-10-25] MEDS: INSULIN GLARGINE 100 UNIT/ML SUBCUT SCH (16:38)
[2021-10-25] MEDS: ACETAMINOPHEN 325 MG TABLET PO PRN (21:53)
[2021-10-25] MEDS: DOCUSATE SODIUM 100 MG CAPSULE PO SCH (21:54)
[2021-10-26 05:19] LABS: Basophils # 0.1 10*3/uL (0.0-0.2); Basophils % 0.9 % (0.0-0.8); Eosinophils # 0.2 10*3/uL (0.0-0.87); Eosinophils % 2.6 % (0.00-10.9); Hematocrit 33.4 VOL% (35.7-47.0); Hemoglobin 10.7 GM/DL (12.0-16.0); Immature Granulocytes % 0.4 %; Immature Granulocytes Absolute 0.03 #; Lymphocytes # 2.2 10*3/uL (1.4-4.0); Mean Platelet Volume 12.7 FL (9.6-12.0); Monocytes % 13.7 % (1.7-12.7); Neutrophils % 53.4 % (38.7-73.9); Platelet Count 148 T/CUMM (130-400); Red Blood Count 3.34 MC/CUMM (3.8-5.5); Red Cell Distribution Width 14.9 % (9.3-17.3); White Blood Count 7.5 T/CUMM (4-12)
[2021-10-26 05:41] LABS: Albumin 2.9 G/DL (3.4-5.0); Bilirubin,Total 0.5 MG/DL (0.20-1.00); Calcium 8.7 MG/DL (8.5-10.1); Osmolality,Calculated 279.7 MOS/KG (273-304); Potassium 3.2 MMOL/L (3.5-5.1); Total Protein 7.1 G/DL (6.4-8.2)
[2021-10-26] MEDS: PANTOPRAZOLE 40 MG TABLET PO SCH (06:42)
[2021-10-26] MEDS ORDERED: SODIUM CHLORIDE 0.9% 1,000 ML IV SCH (08:30)
[2021-10-26] MEDS ORDERED: METOPROLOL SUCCINATE XL 25 MG TABLET PO SCH (09:00)
[2021-10-26 09:06] LABS: Basophils # 0.1 10*3/uL (0.0-0.2); Basophils % 1.1 % (0.0-0.8); Eosinophils # 0.2 10*3/uL (0.0-0.87); Eosinophils % 2.3 % (0.00-10.9); Hematocrit 34.7 VOL% (35.7-47.0); Hemoglobin 11.3 GM/DL (12.0-16.0); Immature Granulocytes % 0.3 %; Immature Granulocytes Absolute 0.02 #; Lymphocytes # 2.3 10*3/uL (1.4-4.0); Lymphocytes % 31.6 % (21.3-54.2); Mean Corpuscular HGB Conc 32.6 GM/DL (32-36); Mean Corpuscular Volume 99.1 FL (87-102); Mean Platelet Volume 12.2 FL (9.6-12.0); Monocytes # 0.9 10*3/uL (0.11-0.8); Monocytes % 12.4 % (1.7-12.7); Neutrophils % 52.3 % (38.7-73.9); Platelet Count 154 T/CUMM (130-400); Red Cell Distribution Width 15.2 % (9.3-17.3); White Blood Count 7.3 T/CUMM (4-12)
[2021-10-26] MEDS: DOCUSATE SODIUM 100 MG CAPSULE PO SCH ×2 (09:15→20:07)
[2021-10-26] MEDS: INSULIN GLARGINE 100 UNIT/ML SUBCUT SCH (09:15)
[2021-10-26] MEDS: INSULIN REGULAR 100 UNIT/ML SUBCUT SCH ×4 (09:15→20:11)
[2021-10-26 09:18] LABS: INR 0.9; PT Patient Result 10.5 SECS (10.5-12.0); Partial Thromboplastin Time 25.1 SECS (23.8-32.1)
[2021-10-26 09:35] LABS: Albumin 3.2 G/DL (3.4-5.0); Bilirubin,Total 0.6 MG/DL (0.20-1.00); Calcium 9.3 MG/DL (8.5-10.1); Osmolality,Calculated 280.1 MOS/KG (273-304); Potassium 3.2 MMOL/L (3.5-5.1); Total Protein 7.7 G/DL (6.4-8.2)
[2021-10-26] MEDS: POTASSIUM CHLORIDE 20 MEQ TABLET PO PRN ×4 (10:17→18:04)
[2021-10-26] MEDS: ISOSORBIDE MONONITRATE 30 MG TABLET PO SCH (10:17)
[2021-10-26] MEDS: APIXABAN 2.5 MG TABLET PO SCH ×2 (10:17→20:07)
[2021-10-26] MEDS ORDERED: SODIUM CHLORIDE 0.9% IV ONE (10:30)
[2021-10-26] MEDS ORDERED: VALPROIC ACID IV ONE (10:30)
[2021-10-26] MEDS: ACETAMINOPHEN 325 MG TABLET PO PRN (13:58)
[2021-10-26] MEDS: VALPROIC ACID INJ 500 MG in SODIUM CHLORIDE 0.9% 100 ML IV SCH (18:06)
[2021-10-26] MEDS: ATORVASTATIN 40 MG TABLET PO SCH (20:07)
[2021-10-26] MEDS ORDERED: ATORVASTATIN 80 MG TABLET PO SCH (21:00)
[2021-10-26 22:12] LABS: Bacteria,Urine Occasional /HPF (Few); Bilirubin,Urine Negative (Negative); Blood, Urine Moderate mg/dL (Negative); Glucose,Urine (UA) Negative (Negative); Ketones,Urine Negative (Negative); Mucus,Urine Occasional /LPF (Occasional); Nitrite,Urine Negative (Negative); Protein,Urine 100 mg/dL (Negative); Squamous Epithelial Cell,Urine Occasional /HPF (0-10); Urine Appearance Slightly Cloudy (Clear); Urine Color Yellow (Yellow); Urine Specific Gravity > 1.030 (1.001-1.035)
[2021-10-26 22:13] LABS: Urine Urobilinogen 0.2 eU/dL (<2.0)
[2021-10-27] MEDS: VALPROIC ACID INJ 500 MG in SODIUM CHLORIDE 0.9% 100 ML IV SCH ×3 (01:45→18:09)
[2021-10-27] MEDS ORDERED: LORazepam 2 MG/1 ML VIAL IV ONE (03:15)
[2021-10-27 05:31] LABS: Basophils # 0.1 10*3/uL (0.0-0.2); Basophils % 0.9 % (0.0-0.8); Eosinophils # 0.2 10*3/uL (0.0-0.87); Eosinophils % 2.9 % (0.00-10.9); Hematocrit 30.7 VOL% (35.7-47.0); Hemoglobin 9.7 GM/DL (12.0-16.0); Immature Granulocytes % 0.3 %; Immature Granulocytes Absolute 0.02 #; Lymphocytes # 2.5 10*3/uL (1.4-4.0); Lymphocytes % 36.8 % (21.3-54.2); Mean Corpuscular HGB Conc 31.6 GM/DL (32-36); Mean Corpuscular Volume 101.3 FL (87-102); Mean Platelet Volume 12.9 FL (9.6-12.0); Monocytes # 0.7 10*3/uL (0.11-0.8); Monocytes % 9.6 % (1.7-12.7); Neutrophils % 49.5 % (38.7-73.9); Platelet Count 132 T/CUMM (130-400); Red Blood Count 3.03 MC/CUMM (3.8-5.5); Red Cell Distribution Width 15.3 % (9.3-17.3); White Blood Count 6.9 T/CUMM (4-12)
[2021-10-27 05:55] LABS: Albumin 2.6 G/DL (3.4-5.0); Bilirubin,Total 0.4 MG/DL (0.20-1.00); Potassium 4.3 MMOL/L (3.5-5.1); Total Protein 6.4 G/DL (6.4-8.2)
[2021-10-27] MEDS: PANTOPRAZOLE 40 MG TABLET PO SCH (06:12)
[2021-10-27] MEDS ORDERED: METOPROLOL SUCCINATE XL 25 MG TABLET PO SCH (09:00)
[2021-10-27] MEDS: INSULIN REGULAR 100 UNIT/ML SUBCUT SCH ×4 (09:21→22:41)
[2021-10-27] MEDS: INSULIN GLARGINE 100 UNIT/ML SUBCUT SCH (09:21)
[2021-10-27] MEDS: APIXABAN 2.5 MG TABLET PO SCH ×2 (09:22→22:42)
[2021-10-27] MEDS: DOCUSATE SODIUM 100 MG CAPSULE PO SCH ×2 (09:22→22:41)
[2021-10-27] MEDS: ISOSORBIDE MONONITRATE 30 MG TABLET PO SCH (09:22)
[2021-10-27] MEDS ORDERED: FLUCONAZOLE 150 MG TABLET PO ONE (10:49)
[2021-10-27] MEDS ORDERED: HEPARIN 10,000 UNIT/10 ML VIAL IV SCH (12:15)
[2021-10-27] MEDS: ATORVASTATIN 40 MG TABLET PO SCH (22:41)
[2021-10-27] MEDS: ACETAMINOPHEN 325 MG TABLET PO PRN (22:42)
[2021-10-28] MEDS: VALPROIC ACID INJ 500 MG in SODIUM CHLORIDE 0.9% 100 ML IV SCH ×3 (01:16→18:31)
[2021-10-28] MEDS: PANTOPRAZOLE 40 MG TABLET PO SCH (05:35)
[2021-10-28 06:38] LABS: Basophils # 0.1 10*3/uL (0.0-0.2); Basophils % 0.6 % (0.0-0.8); Eosinophils # 0.2 10*3/uL (0.0-0.87); Eosinophils % 2.6 % (0.00-10.9); Hematocrit 35.3 VOL% (35.7-47.0); Hemoglobin 11.1 GM/DL (12.0-16.0); Immature Granulocytes % 0.6 %; Immature Granulocytes Absolute 0.05 #; Lymphocytes # 1.9 10*3/uL (1.4-4.0); Lymphocytes % 22.2 % (21.3-54.2); Mean Corpuscular HGB Conc 31.4 GM/DL (32-36); Mean Corpuscular Volume 102.3 FL (87-102); Mean Platelet Volume 13.1 FL (9.6-12.0); Monocytes # 0.8 10*3/uL (0.11-0.8); Monocytes % 9.5 % (1.7-12.7); Neutrophils % 64.5 % (38.7-73.9); Platelet Count 138 T/CUMM (130-400); Red Blood Count 3.45 MC/CUMM (3.8-5.5); Red Cell Distribution Width 15.6 % (9.3-17.3); White Blood Count 8.5 T/CUMM (4-12)
[2021-10-28 07:03] LABS: Bilirubin,Total 0.6 MG/DL (0.20-1.00); Calcium 8.6 MG/DL (8.5-10.1); Osmolality,Calculated 277.1 MOS/KG (273-304); Potassium 4.6 MMOL/L (3.5-5.1); Total Protein 7.6 G/DL (6.4-8.2)
[2021-10-28] MEDS ORDERED: LORazepam 2 MG/1 ML VIAL ONE (08:35)
[2021-10-28] MEDS ORDERED: LORazepam 2 MG/1 ML VIAL IV STA (08:35)
[2021-10-28] MEDS: LORazepam 2 MG/1 ML VIAL IV PRN ×2 (09:55→13:31)
[2021-10-28] MEDS: APIXABAN 2.5 MG TABLET PO SCH ×2 (10:01→20:37)
[2021-10-28] MEDS: ISOSORBIDE MONONITRATE 30 MG TABLET PO SCH (10:01)
[2021-10-28] MEDS: DOCUSATE SODIUM 100 MG CAPSULE PO SCH ×2 (10:01→20:37)
[2021-10-28] MEDS: INSULIN GLARGINE 100 UNIT/ML SUBCUT SCH (10:21)
[2021-10-28] MEDS: INSULIN REGULAR 100 UNIT/ML SUBCUT SCH ×4 (10:45→17:53)
[2021-10-28] MEDS: ATORVASTATIN 40 MG TABLET PO SCH (20:38)
[2021-10-29] MEDS: INSULIN REGULAR 100 UNIT/ML SUBCUT SCH ×5 (00:33→23:54)
[2021-10-29] MEDS: VALPROIC ACID INJ 500 MG in SODIUM CHLORIDE 0.9% 100 ML IV SCH (03:06)
[2021-10-29] MEDS: LORazepam 2 MG/1 ML VIAL IV PRN ×3 (03:20→14:05)
[2021-10-29 05:55] LABS: Basophils % 0.3 % (0.0-0.8); Eosinophils # 0.1 10*3/uL (0.0-0.87); Eosinophils % 0.5 % (0.00-10.9); Hematocrit 37.7 VOL% (35.7-47.0); Hemoglobin 11.8 GM/DL (12.0-16.0); Immature Granulocytes % 0.4 %; Immature Granulocytes Absolute 0.05 #; Lymphocytes # 0.7 10*3/uL (1.4-4.0); Mean Corpuscular HGB Conc 31.3 GM/DL (32-36); Mean Corpuscular Volume 103.3 FL (87-102); Mean Platelet Volume 12.1 FL (9.6-12.0); Monocytes % 8.3 % (1.7-12.7); Neutrophils % 84.5 % (38.7-73.9); Platelet Count 135 T/CUMM (130-400); Red Blood Count 3.65 MC/CUMM (3.8-5.5); Red Cell Distribution Width 15.2 % (9.3-17.3); White Blood Count 11.5 T/CUMM (4-12)
[2021-10-29 06:18] LABS: Albumin 2.9 G/DL (3.4-5.0); Bilirubin,Total 0.6 MG/DL (0.20-1.00); Calcium 8.3 MG/DL (8.5-10.1); Osmolality,Calculated 280.1 MOS/KG (273-304); Potassium 4.3 MMOL/L (3.5-5.1); Total Protein 7.4 G/DL (6.4-8.2)
[2021-10-29] MEDS: ISOSORBIDE MONONITRATE 30 MG TABLET PO SCH (08:17)
[2021-10-29] MEDS: APIXABAN 2.5 MG TABLET PO SCH ×2 (08:17→21:30)
[2021-10-29] MEDS: DOCUSATE SODIUM 100 MG CAPSULE PO SCH ×2 (08:32→21:30)
[2021-10-29 09:47] LABS: Arterial Base Excess iSTAT -3 MMOL/L (-2.5-2.5); Arterial Bicarbonate iSTAT 22.5 MMOL/L (20-26); Arterial O2 Saturation iSTAT 96 % (95-100); Arterial PCO2 iSTAT 39 MM HG (35-48); Arterial PO2 iSTAT 83 MM HG (80-95); Arterial Total CO2 iSTAT 24 MMO/L (23-27); Arterial pH iSTAT 7.372 (7.35-7.45)
[2021-10-29] MEDS ORDERED: LORazepam 2 MG/1 ML VIAL ONE ×2 (09:57→14:00)
[2021-10-29] MEDS ORDERED: ETOMIDATE 20 MG/10 ML VIAL IV ONE ×2 (10:56→11:12)
[2021-10-29] MEDS ORDERED: VECURONIUM 10 MG VIAL IV ONE ×2 (10:56→11:12)
[2021-10-29 11:49] LABS: Arterial Base Excess iSTAT -2 MMOL/L (-2.5-2.5); Arterial Bicarbonate iSTAT 24.3 MMOL/L (20-26); Arterial O2 Saturation iSTAT 100 % (95-100); Arterial PCO2 iSTAT 46 MM HG (35-48); Arterial PO2 iSTAT 250 MM HG (80-95); Arterial Total CO2 iSTAT 26 MMO/L (23-27); Arterial pH iSTAT 7.327 (7.35-7.45)
[2021-10-29] MEDS: VALPROIC ACID INJ 750 MG in SODIUM CHLORIDE 0.9% 100 ML IV SCH ×2 (12:02→18:20)
[2021-10-29] MEDS ORDERED: PHENobarbital 130 MG/1 ML VIAL IV ONE (14:30)
[2021-10-29] MEDS ORDERED: [UNRECOGNIZED DRUG - OTHER] IV ONE (16:00)
[2021-10-29] MEDS ORDERED: FOSPHENYTOIN IV ONE (16:00)
[2021-10-29] MEDS ORDERED: SODIUM CHLORIDE IV ONE (16:00)
[2021-10-29] MEDS ORDERED: LACOSAMIDE INJ 200 MG in SODIUM CHLORIDE 0.9% 50 ML IV STA (16:42)
[2021-10-29] MEDS ORDERED: SODIUM CHLORIDE 0.9% IV STA (16:48)
[2021-10-29] MEDS ORDERED: LACOSAMIDE IV STA (16:48)
[2021-10-29] MEDS: ATORVASTATIN 40 MG TABLET PO SCH (21:30)
[2021-10-29] MEDS: LACOSAMIDE INJ 200 MG in SODIUM CHLORIDE 0.9% 50 ML IV SCH (21:54)
[2021-10-29] MEDS: PHENYLEPHRINE DRIP 40 MG/250 ML PREMIX IV PRN (22:04)
[2021-10-29] MEDS ORDERED: PHENYLEPHRINE DRIP 40 MG/250 ML PREMIX IV ONE (22:06)
[2021-10-29] MEDS ORDERED: SODIUM CHLORIDE 0.9% 1,000 ML IV ONE (23:05)
[2021-10-30] MEDS ORDERED: NOREPINEPHRINE 4 MG/4 ML VIAL IV ONE (01:41)
[2021-10-30] MEDS: PHENYLEPHRINE DRIP 40 MG/250 ML PREMIX IV PRN ×3 (01:59→15:59)
[2021-10-30] MEDS ORDERED: NOREPINEPHRINE 8 MG in SODIUM CHLORIDE 0.9% 242 ML IV PRN (02:00)
[2021-10-30] MEDS: VALPROIC ACID INJ 750 MG in SODIUM CHLORIDE 0.9% 100 ML IV SCH ×3 (03:47→18:20)
[2021-10-30 05:14] LABS: Arterial Base Excess iSTAT -3 MMOL/L (-2.5-2.5); Arterial Bicarbonate iSTAT 21.9 MMOL/L (20-26); Arterial O2 Saturation iSTAT 100 % (95-100); Arterial PCO2 iSTAT 40 MM HG (35-48); Arterial PO2 iSTAT 398 MM HG (80-95); Arterial Total CO2 iSTAT 23 MMO/L (23-27); Arterial pH iSTAT 7.347 (7.35-7.45)
[2021-10-30] MEDS: INSULIN REGULAR 100 UNIT/ML SUBCUT SCH ×3 (07:48→18:20)
[2021-10-30 07:56] LABS: Albumin 2.5 G/DL (3.4-5.0); Bilirubin,Total 0.9 MG/DL (0.20-1.00); Calcium 7.9 MG/DL (8.5-10.1); Osmolality,Calculated 269.5 MOS/KG (273-304); Potassium 4.5 MMOL/L (3.5-5.1); Total Protein 7.3 G/DL (6.4-8.2)
[2021-10-30] MEDS: LORazepam 2 MG/1 ML VIAL IV PRN ×2 (07:56→10:05)
[2021-10-30] MEDS ORDERED: DEXTROSE 50% 25 GM/50 ML VIAL IV PRN (08:44)
[2021-10-30] MEDS: APIXABAN 2.5 MG TABLET PO SCH (09:52)
[2021-10-30] MEDS: ISOSORBIDE MONONITRATE 30 MG TABLET PO SCH (09:52)
[2021-10-30] MEDS: LACOSAMIDE INJ 200 MG in SODIUM CHLORIDE 0.9% 50 ML IV SCH ×2 (10:09→21:01)
[2021-10-30] MEDS ORDERED: AMIODARONE INJ 150 MG in DEXTROSE 5% 100 ML IV ONE (11:20)
[2021-10-30] MEDS ORDERED: AMIODARONE 150 MG/3 ML VIAL ONE (11:24)
[2021-10-30] MEDS ORDERED: MIDAZOLAM 100 MG in SODIUM CHLORIDE 0.9% 80 ML IV PRN (11:43)
[2021-10-30] MEDS: MIDAZOLAM 100 MG in SODIUM CHLORIDE 0.9% 80 ML IV PRN (12:29)
[2021-10-30 15:48] LABS: Basophils % 0.3 % (0.0-0.8); Eosinophils % 0.3 % (0.00-10.9); Hematocrit 32.6 VOL% (35.7-47.0); Hemoglobin 10.1 GM/DL (12.0-16.0); Immature Granulocytes % 1.6 %; Immature Granulocytes Absolute 0.24 #; Lymphocytes # 1.1 10*3/uL (1.4-4.0); Lymphocytes % 7.5 % (21.3-54.2); Mean Corpuscular Volume 104.2 FL (87-102); Mean Platelet Volume 12.5 FL (9.6-12.0); Monocytes # 1.1 10*3/uL (0.11-0.8); Neutrophils % 83.3 % (38.7-73.9); Platelet Count 116 T/CUMM (130-400); Red Blood Count 3.13 MC/CUMM (3.8-5.5); Red Cell Distribution Width 15.9 % (9.3-17.3); White Blood Count 15.1 T/CUMM (4-12)
[2021-10-30 16:05] LABS: Albumin 2.2 G/DL (3.4-5.0); Calcium 7.1 MG/DL (8.5-10.1); Osmolality,Calculated 275.4 MOS/KG (273-304); Potassium 4.7 MMOL/L (3.5-5.1); Total Protein 6.5 G/DL (6.4-8.2)
[2021-10-30] MEDS ORDERED: LACTATED RINGERS 500 ML IV ONE (17:00)
[2021-10-30 17:31] LABS: Band Neutrophils 17 % (0-10); Lymphocytes 5 % (20-55); Macrocytosis 2+; Metamyelocytes 2 %; Myelocytes 1 %; Platelet Estimate Adequate; Total Cells Counted 100
[2021-10-30] MEDS: HEPARIN DRIP 25,000 UNITS/500 ML PREMIX IV SCH (17:42)
[2021-10-30] MEDS: DOCUSATE SODIUM 100 MG CAPSULE PO SCH (17:49)
[2021-10-30] MEDS: ATORVASTATIN 40 MG TABLET PO SCH (21:01)
[2021-10-31] MEDS: INSULIN REGULAR 100 UNIT/ML SUBCUT SCH ×4 (01:00→18:38)
[2021-10-31] MEDS: VALPROIC ACID INJ 750 MG in SODIUM CHLORIDE 0.9% 100 ML IV SCH ×3 (03:50→19:37)
[2021-10-31 05:13] LABS: ABG Base Excess -2.8 MMOL/L (-2.5-2.5); ABG HCO3 22.1 MMOL/L (20-26); ABG Oxygen Saturation 99.9 % (95-100); ABG PCO2 34.6 MM HG (35-48); ABG TCO2 19.5 MMOL/L (23-27)
[2021-10-31 05:40] LABS: Albumin 2.1 G/DL (3.4-5.0); Bilirubin,Total 1.2 MG/DL (0.20-1.00); Calcium 7.1 MG/DL (8.5-10.1); Osmolality,Calculated 278.2 MOS/KG (273-304); Potassium 3.6 MMOL/L (3.5-5.1); Total Protein 6.3 G/DL (6.4-8.2)
[2021-10-31] MEDS: ISOSORBIDE MONONITRATE 30 MG TABLET PO SCH (08:42)
[2021-10-31] MEDS: PANTOPRAZOLE 40 MG VIAL IV SCH (08:44)
[2021-10-31] MEDS: MIDAZOLAM 100 MG in SODIUM CHLORIDE 0.9% 80 ML IV PRN (08:59)
[2021-10-31] MEDS ORDERED: FAMOTIDINE 20 MG/2 ML VIAL IV SCH (09:00)
[2021-10-31] MEDS: LACOSAMIDE INJ 200 MG in SODIUM CHLORIDE 0.9% 50 ML IV SCH ×2 (09:10→21:20)
[2021-10-31] MEDS: ACYCLOVIR INJ 300 MG in SODIUM CHLORIDE 0.9% 100 ML IV SCH (10:01)
[2021-10-31] MEDS: PHENYLEPHRINE DRIP 40 MG/250 ML PREMIX IV PRN (12:48)
[2021-10-31] MEDS: HEPARIN DRIP 25,000 UNITS/500 ML PREMIX IV SCH (16:23)
[2021-10-31] MEDS: ATORVASTATIN 40 MG TABLET PO SCH (21:08)
[2021-11-01] MEDS: INSULIN REGULAR 100 UNIT/ML SUBCUT SCH ×4 (00:07→18:49)
[2021-11-01] MEDS: VALPROIC ACID INJ 750 MG in SODIUM CHLORIDE 0.9% 100 ML IV SCH ×3 (03:05→19:45)
[2021-11-01 04:08] LABS: Basophils # 0.1 10*3/uL (0.0-0.2); Basophils % 0.4 % (0.0-0.8); Eosinophils # 0.2 10*3/uL (0.0-0.87); Eosinophils % 1.1 % (0.00-10.9); Hematocrit 28.7 VOL% (35.7-47.0); Hemoglobin 9.4 GM/DL (12.0-16.0); Immature Granulocytes % 2.9 %; Immature Granulocytes Absolute 0.53 #; Lymphocytes # 0.6 10*3/uL (1.4-4.0); Lymphocytes % 3.1 % (21.3-54.2); Mean Corpuscular HGB Conc 32.8 GM/DL (32-36); Mean Platelet Volume 12.3 FL (9.6-12.0); Monocytes # 1.4 10*3/uL (0.11-0.8); Monocytes % 7.7 % (1.7-12.7); Neutrophils % 84.8 % (38.7-73.9); Platelet Count 107 T/CUMM (130-400); Red Blood Count 2.87 MC/CUMM (3.8-5.5); Red Cell Distribution Width 15.5 % (9.3-17.3); White Blood Count 18.3 T/CUMM (4-12)
[2021-11-01 04:12] LABS: ABG Base Excess 2.4 MMOL/L (-2.5-2.5); ABG HCO3 26.6 MMOL/L (20-26); ABG Oxygen Saturation 99.3 % (95-100); ABG PCO2 36.6 MM HG (35-48); ABG PH 7.462 (7.35-7.45); ABG TCO2 23.3 MMOL/L (23-27)
[2021-11-01 04:34] LABS: Calcium 7.1 MG/DL (8.5-10.1); Osmolality,Calculated 278.8 MOS/KG (273-304); Potassium 3.3 MMOL/L (3.5-5.1)
[2021-11-01 05:13] LABS: Eosinophils 1 % (0-10); Lymphocytes 9 % (20-55); Platelet Estimate Adequate
[2021-11-01 05:14] LABS: Total Cells Counted 100
[2021-11-01] MEDS: ISOSORBIDE MONONITRATE 30 MG TABLET PO SCH (08:38)
[2021-11-01] MEDS: PANTOPRAZOLE 40 MG VIAL IV SCH (08:39)
[2021-11-01] MEDS: LACOSAMIDE INJ 200 MG in SODIUM CHLORIDE 0.9% 50 ML IV SCH ×2 (09:40→21:40)
[2021-11-01] MEDS: ACYCLOVIR INJ 300 MG in SODIUM CHLORIDE 0.9% 100 ML IV SCH (10:56)
[2021-11-01 16:22] LABS: Glucose,CSF 114 MG/DL (40-70)
[2021-11-01 16:57] LABS: Appearance,CSF Clear; Red Blood Cell,CSF 2 C/CUMM; White Blood Cell,CSF < 1 C/CUMM
[2021-11-01] MEDS: HEPARIN DRIP 25,000 UNITS/500 ML PREMIX IV SCH (18:43)
[2021-11-01] MEDS: ATORVASTATIN 40 MG TABLET PO SCH (21:20)
[2021-11-02] MEDS: INSULIN REGULAR 100 UNIT/ML SUBCUT SCH ×5 (01:40→23:10)
[2021-11-02] MEDS: VALPROIC ACID INJ 750 MG in SODIUM CHLORIDE 0.9% 100 ML IV SCH (02:49)
[2021-11-02] MEDS: HEPARIN DRIP 25,000 UNITS/500 ML PREMIX IV SCH (02:51)
[2021-11-02 03:42] LABS: ABG Base Excess 2.2 MMOL/L (-2.5-2.5); ABG HCO3 26.4 MMOL/L (20-26); ABG Oxygen Saturation 97.4 % (95-100); ABG PCO2 35.5 MM HG (35-48); ABG PO2 89.7 MM HG (80-95); ABG TCO2 23.8 MMOL/L (23-27); Basophils # 0.1 10*3/uL (0.0-0.2); Basophils % 0.8 % (0.0-0.8); Eosinophils # 0.1 10*3/uL (0.0-0.87); Eosinophils % 0.9 % (0.00-10.9); Hematocrit 27.8 VOL% (35.7-47.0); Hemoglobin 8.9 GM/DL (12.0-16.0); Immature Granulocytes % 3.5 %; Immature Granulocytes Absolute 0.53 #; Lymphocytes # 0.9 10*3/uL (1.4-4.0); Lymphocytes % 5.7 % (21.3-54.2); Mean Corpuscular Volume 100.4 FL (87-102); Mean Platelet Volume 12.1 FL (9.6-12.0); Monocytes # 1.2 10*3/uL (0.11-0.8); Monocytes % 7.7 % (1.7-12.7); Neutrophils % 81.4 % (38.7-73.9); Platelet Count 108 T/CUMM (130-400); Red Blood Count 2.77 MC/CUMM (3.8-5.5); Red Cell Distribution Width 15.4 % (9.3-17.3); White Blood Count 15.2 T/CUMM (4-12)
[2021-11-02 04:07] LABS: Calcium 7.1 MG/DL (8.5-10.1); Osmolality,Calculated 277.2 MOS/KG (273-304); Potassium 2.9 MMOL/L (3.5-5.1)
[2021-11-02 04:15] LABS: Eosinophils 2 % (0-10); Lymphocytes 8 % (20-55); Platelet Estimate Adequate; Total Cells Counted 100
[2021-11-02] MEDS: POTASSIUM CHLORIDE 20 MEQ TABLET PO PRN (06:41)
[2021-11-02] MEDS: PANTOPRAZOLE 40 MG VIAL IV SCH (08:45)
[2021-11-02] MEDS: ISOSORBIDE MONONITRATE 30 MG TABLET PO SCH (08:45)
[2021-11-02] MEDS: LACOSAMIDE INJ 200 MG in SODIUM CHLORIDE 0.9% 50 ML IV SCH ×2 (09:50→21:25)
[2021-11-02] MEDS: ACYCLOVIR INJ 300 MG in SODIUM CHLORIDE 0.9% 100 ML IV SCH (11:15)
[2021-11-02] MEDS ORDERED: VALPROIC ACID INJ 750 MG in SODIUM CHLORIDE 0.9% 100 ML IV SCH (13:00)
[2021-11-02] MEDS: ENOXAPARIN 30 MG/0.3 ML SYRINGE SUBCUT SCH (18:10)
[2021-11-02] MEDS: ATORVASTATIN 40 MG TABLET PO SCH (21:45)
[2021-11-02] MEDS: ACETAMINOPHEN 325 MG TABLET PO PRN (23:12)
[2021-11-02 23:14] LABS: Albumin 1.7 G/DL (3.4-5.0); Potassium 3.4 MMOL/L (3.5-5.1); Total Protein 6.5 G/DL (6.4-8.2)
[2021-11-03 05:08] LABS: ABG Base Excess -3.1 MMOL/L (-2.5-2.5); ABG HCO3 21.9 MMOL/L (20-26); ABG Oxygen Saturation 98.9 % (95-100); ABG PCO2 36.1 MM HG (35-48); ABG PH 7.382 (7.35-7.45); ABG TCO2 19.1 MMOL/L (23-27)
[2021-11-03 05:12] LABS: Basophils % 0.2 % (0.0-0.8); Eosinophils # 0.1 10*3/uL (0.0-0.87); Eosinophils % 0.6 % (0.00-10.9); Hematocrit 30.2 VOL% (35.7-47.0); Hemoglobin 9.3 GM/DL (12.0-16.0); Immature Granulocytes Absolute 1.81 #; Mean Corpuscular HGB Conc 30.8 GM/DL (32-36); Mean Corpuscular Volume 101.7 FL (87-102); Mean Platelet Volume 11.9 FL (9.6-12.0); Monocytes # 2.2 10*3/uL (0.11-0.8); Monocytes % 16.1 % (1.7-12.7); NRBC # 0.02 10*3/uL; Neutrophils % 63.1 % (38.7-73.9); Platelet Count 116 T/CUMM (130-400); Red Blood Count 2.97 MC/CUMM (3.8-5.5); Red Cell Distribution Width 15.9 % (9.3-17.3); White Blood Count 13.9 T/CUMM (4-12)
[2021-11-03 05:23] LABS: Calcium 7.9 MG/DL (8.5-10.1); Osmolality,Calculated 275.1 MOS/KG (273-304); Potassium 3.4 MMOL/L (3.5-5.1)
[2021-11-03 05:30] LABS: Band Neutrophils 6 % (0-10); Hypochromia Slight; Lymphocytes 6 % (20-55); Microcytosis Slight; Total Cells Counted 100
[2021-11-03] MEDS: INSULIN REGULAR 100 UNIT/ML SUBCUT SCH ×4 (06:42→23:44)
[2021-11-03] MEDS: POTASSIUM CHLORIDE 20 MEQ TABLET PO PRN (06:42)
[2021-11-03] MEDS: PANTOPRAZOLE 40 MG VIAL IV SCH (08:25)
[2021-11-03] MEDS: ACYCLOVIR INJ 300 MG in SODIUM CHLORIDE 0.9% 100 ML IV SCH (08:25)
[2021-11-03] MEDS: ISOSORBIDE MONONITRATE 30 MG TABLET PO SCH (08:30)
[2021-11-03] MEDS: LACOSAMIDE INJ 200 MG in SODIUM CHLORIDE 0.9% 50 ML IV SCH ×2 (08:45→20:45)
[2021-11-03] MEDS: METOCLOPRAMIDE 10 MG/2 ML VIAL IV SCH ×3 (08:55→21:25)
[2021-11-03] MEDS: ACETAMINOPHEN 325 MG TABLET PO PRN ×2 (16:10→22:15)
[2021-11-03] MEDS: ENOXAPARIN 30 MG/0.3 ML SYRINGE SUBCUT SCH (17:50)
[2021-11-03] MEDS: ATORVASTATIN 40 MG TABLET PO SCH (21:19)
[2021-11-03 22:27] LABS: VDRL Spinal Fluid Negative (Negative)
[2021-11-04] MEDS: METOCLOPRAMIDE 10 MG/2 ML VIAL IV SCH ×4 (04:27→23:07)
[2021-11-04 05:09] LABS: Basophils # 0.1 10*3/uL (0.0-0.2); Basophils % 0.3 % (0.0-0.8); Eosinophils % 0.3 % (0.00-10.9); Immature Granulocytes % 22.1 %; Immature Granulocytes Absolute 3.43 #; Lymphocytes # 1.6 10*3/uL (1.4-4.0); Lymphocytes % 10.4 % (21.3-54.2); Mean Corpuscular HGB Conc 31.5 GM/DL (32-36); Mean Corpuscular Volume 101.1 FL (87-102); Mean Platelet Volume 11.9 FL (9.6-12.0); Monocytes # 3.6 10*3/uL (0.11-0.8); Monocytes % 22.9 % (1.7-12.7); NRBC # 0.04 10*3/uL; Red Blood Count 2.67 MC/CUMM (3.8-5.5); White Blood Count 15.6 T/CUMM (4-12)
[2021-11-04 05:15] LABS: Hemoglobin 8.5 GM/DL (12.0-16.0); Platelet Count 117 T/CUMM (130-400)
[2021-11-04 05:20] LABS: Osmolality,Calculated 283.8 MOS/KG (273-304); Potassium 3.6 MMOL/L (3.5-5.1)
[2021-11-04 05:27] LABS: Band Neutrophils 6 % (0-10); Hypochromia 1+; Lymphocytes 14 % (20-55); Microcytosis 1+; Total Cells Counted 100
[2021-11-04] MEDS: INSULIN REGULAR 100 UNIT/ML SUBCUT SCH ×3 (06:45→19:06)
[2021-11-04] MEDS: cefTRIAXone 1,000 MG in SODIUM CHLORIDE 0.9% 100 ML IV SCH (09:41)
[2021-11-04] MEDS: PANTOPRAZOLE 40 MG VIAL IV SCH (09:44)
[2021-11-04] MEDS: LACOSAMIDE INJ 200 MG in SODIUM CHLORIDE 0.9% 50 ML IV SCH ×2 (10:05→21:35)
[2021-11-04] MEDS: ACETAMINOPHEN 325 MG TABLET PO PRN (11:40)
[2021-11-04] MEDS ORDERED: VANCOMYCIN INJ 1,000 MG in SODIUM CHLORIDE 0.9% 250 ML IV ONE (16:47)
[2021-11-04] MEDS: ENOXAPARIN 30 MG/0.3 ML SYRINGE SUBCUT SCH (17:16)
[2021-11-04] MEDS: ATORVASTATIN 40 MG TABLET PO SCH (21:40)
[2021-11-05] MEDS: INSULIN REGULAR 100 UNIT/ML SUBCUT SCH ×5 (00:21→23:40)
[2021-11-05] MEDS: METOCLOPRAMIDE 10 MG/2 ML VIAL IV SCH ×3 (03:14→14:59)
[2021-11-05 03:57] LABS: Basophils # 0.1 10*3/uL (0.0-0.2); Basophils % 0.3 % (0.0-0.8); Hematocrit 24.4 VOL% (35.7-47.0); Hemoglobin 7.7 GM/DL (12.0-16.0); Immature Granulocytes % 15.4 %; Immature Granulocytes Absolute 3.11 #; Lymphocytes # 2.1 10*3/uL (1.4-4.0); Lymphocytes % 10.2 % (21.3-54.2); Mean Corpuscular HGB Conc 31.6 GM/DL (32-36); Mean Corpuscular Volume 101.7 FL (87-102); Mean Platelet Volume 11.6 FL (9.6-12.0); Monocytes # 4.4 10*3/uL (0.11-0.8); Monocytes % 21.9 % (1.7-12.7); NRBC # 0.09 10*3/uL; Neutrophils % 52.2 % (38.7-73.9); Platelet Count 100 T/CUMM (130-400); Red Cell Distribution Width 16.3 % (9.3-17.3); White Blood Count 20.1 T/CUMM (4-12)
[2021-11-05 04:06] LABS: Arterial Base Excess iSTAT -3 MMOL/L (-2.5-2.5); Arterial Bicarbonate iSTAT 19.7 MMOL/L (20-26); Arterial O2 Saturation iSTAT 95 % (95-100); Arterial PCO2 iSTAT 24 MM HG (35-48); Arterial PO2 iSTAT 66 MM HG (80-95); Arterial Total CO2 iSTAT 20 MMO/L (23-27); Arterial pH iSTAT 7.516 (7.35-7.45)
[2021-11-05 04:18] LABS: Calcium 7.8 MG/DL (8.5-10.1); Osmolality,Calculated 291.7 MOS/KG (273-304); Potassium 3.7 MMOL/L (3.5-5.1)
[2021-11-05 04:20] LABS: Band Neutrophils 6 % (0-10); Lymphocytes 7 % (20-55); Myelocytes 2 %; Promyelocytes 3 %; Total Cells Counted 100
[2021-11-05 04:21] LABS: Anisocytosis 1+; Hypochromia 1+; Microcytosis 1+
[2021-11-05] MEDS: cefTRIAXone 1,000 MG in SODIUM CHLORIDE 0.9% 100 ML IV SCH (07:49)
[2021-11-05 07:56] LABS: M. Tuberculosis PCR Result Negative (Negative); M. Tuberculosis PCR Source csf
[2021-11-05] MEDS: PANTOPRAZOLE 40 MG VIAL IV SCH (09:07)
[2021-11-05] MEDS: LACOSAMIDE INJ 200 MG in SODIUM CHLORIDE 0.9% 50 ML IV SCH ×2 (09:09→21:21)
[2021-11-05] MEDS: POTASSIUM CHLORIDE 20 MEQ TABLET PO PRN (09:11)
[2021-11-05] MEDS ORDERED: SODIUM CHLORIDE 0.9% 1,000 ML IV PRN (10:38)
[2021-11-05] MEDS ORDERED: IMMUNE GLOBULIN 10% 20 GM, IMMUNE GLOBULIN 10% 10 GM, IMMUNE GLOBULIN 10% 5 GM in PREMI... IV ONE (11:07)
[2021-11-05 12:21] LABS: West Nile Virus Ab, IgG, CSF Negative (Negative); West Nile Virus Ab, IgM, CSF Negative (Negative)
[2021-11-05] MEDS ORDERED: VANCOMYCIN INJ 750 MG in SODIUM CHLORIDE 0.9% 250 ML IV PRN (13:57)
[2021-11-05] MEDS: VALPROIC ACID INJ 750 MG in SODIUM CHLORIDE 0.9% 100 ML IV SCH ×2 (16:39→23:39)
[2021-11-05] MEDS: ENOXAPARIN 30 MG/0.3 ML SYRINGE SUBCUT SCH (16:44)
[2021-11-05] MEDS ORDERED: VANCOMYCIN INJ 750 MG in SODIUM CHLORIDE 0.9% 250 ML IV ONE (17:00)
[2021-11-05] MEDS: APIXABAN 2.5 MG TABLET PO SCH ×3 (17:55→20:21)
[2021-11-05] MEDS: ALBUTEROL/IPRATROPIUM 3 ML NEB RESP TX SCH (19:15)
[2021-11-05] MEDS: ATORVASTATIN 40 MG TABLET PO SCH (20:21)
[2021-11-05] MEDS ORDERED: PHENYLEPHRINE 50 MG/5 ML VIAL IV ONE (21:06)
[2021-11-05] MEDS ORDERED: PHENYLEPHRINE DRIP 40 MG/250 ML PREMIX IV PRN (21:30)
[2021-11-06] MEDS: ALBUTEROL/IPRATROPIUM 3 ML NEB RESP TX SCH ×4 (00:14→19:39)
[2021-11-06 03:33] LABS: Basophils % 0.1 % (0.0-0.8); Eosinophils % 0.1 % (0.00-10.9); Hematocrit 26.2 VOL% (35.7-47.0); Hemoglobin 8.4 GM/DL (12.0-16.0); Immature Granulocytes % 13.9 %; Lymphocytes # 2.2 10*3/uL (1.4-4.0); Lymphocytes % 8.1 % (21.3-54.2); Mean Corpuscular HGB Conc 32.1 GM/DL (32-36); Mean Corpuscular Volume 98.1 FL (87-102); Monocytes # 4.9 10*3/uL (0.11-0.8); Monocytes % 18.2 % (1.7-12.7); NRBC # 0.15 10*3/uL; Neutrophils % 59.6 % (38.7-73.9); Platelet Count 117 T/CUMM (130-400); Red Blood Count 2.67 MC/CUMM (3.8-5.5); White Blood Count 26.7 T/CUMM (4-12)
[2021-11-06 03:47] LABS: Calcium 8.2 MG/DL (8.5-10.1); Osmolality,Calculated 288.7 MOS/KG (273-304); Potassium 3.8 MMOL/L (3.5-5.1)
[2021-11-06 03:48] LABS: ABG Base Excess 1.2 MMOL/L (-2.5-2.5); ABG HCO3 25.5 MMOL/L (20-26); ABG Oxygen Saturation 99.3 % (95-100); ABG PCO2 34.7 MM HG (35-48); ABG PH 7.462 (7.35-7.45); ABG TCO2 22.8 MMOL/L (23-27); Allen Test Positive; Pt O2 Delivery Device Ventilator
[2021-11-06 03:56] LABS: Band Neutrophils 7 % (0-10); Hypochromia Slight; Lymphocytes 11 % (20-55); Metamyelocytes 2 %; Myelocytes 2 %; Nucleated Red Blood Cells 2 (0-5); Promyelocytes 2 %; Total Cells Counted 100
[2021-11-06 03:57] LABS: Anisocytosis 1+; Microcytosis 1+; Platelet Estimate Decreased
[2021-11-06] MEDS: INSULIN REGULAR 100 UNIT/ML SUBCUT SCH ×4 (06:06→23:55)
[2021-11-06] MEDS: APIXABAN 2.5 MG TABLET PO SCH (07:46)
[2021-11-06] MEDS: cefTRIAXone 1,000 MG in SODIUM CHLORIDE 0.9% 100 ML IV SCH (08:28)
[2021-11-06] MEDS: VALPROIC ACID INJ 750 MG in SODIUM CHLORIDE 0.9% 100 ML IV SCH ×3 (08:49→23:55)
[2021-11-06] MEDS ORDERED: APIXABAN 2.5 MG TABLET PO SCH (09:00)
[2021-11-06] MEDS: PANTOPRAZOLE 40 MG VIAL IV SCH (10:04)
[2021-11-06] MEDS: LACOSAMIDE INJ 200 MG in SODIUM CHLORIDE 0.9% 50 ML IV SCH ×2 (10:05→21:01)
[2021-11-06] MEDS: INSULIN GLARGINE 100 UNIT/ML SUBCUT SCH (10:12)
[2021-11-06] MEDS: CEFEPIME 1,000 MG in SODIUM CHLORIDE 0.9% 100 ML IV SCH (10:15)
[2021-11-06] MEDS: ATORVASTATIN 40 MG TABLET PO SCH (21:01)
[2021-11-07] MEDS: ALBUTEROL/IPRATROPIUM 3 ML NEB RESP TX SCH ×4 (00:55→18:32)
[2021-11-07 03:04] LABS: ABG Base Excess 0.8 MMOL/L (-2.5-2.5); ABG PCO2 35.4 MM HG (35-48); ABG PH 7.451 (7.35-7.45); ABG PO2 50.9 MM HG (80-95); ABG TCO2 23.2 MMOL/L (23-27)
[2021-11-07 03:38] LABS: Basophils % 0.1 % (0.0-0.8); Eosinophils # 0.1 10*3/uL (0.0-0.87); Eosinophils % 0.5 % (0.00-10.9); Hematocrit 24.4 VOL% (35.7-47.0); Hemoglobin 7.9 GM/DL (12.0-16.0); Immature Granulocytes % 13.7 %; Immature Granulocytes Absolute 3.89 #; Lymphocytes # 1.9 10*3/uL (1.4-4.0); Lymphocytes % 6.8 % (21.3-54.2); Mean Corpuscular HGB Conc 32.4 GM/DL (32-36); Mean Corpuscular Volume 97.2 FL (87-102); Mean Platelet Volume 10.7 FL (9.6-12.0); Monocytes # 4.1 10*3/uL (0.11-0.8); Monocytes % 14.5 % (1.7-12.7); NRBC # 0.26 10*3/uL; Neutrophils % 64.4 % (38.7-73.9); Platelet Count 117 T/CUMM (130-400); Red Blood Count 2.51 MC/CUMM (3.8-5.5); Red Cell Distribution Width 17.6 % (9.3-17.3); White Blood Count 28.4 T/CUMM (4-12)
[2021-11-07 03:56] LABS: Band Neutrophils 7 % (0-10); Eosinophils 1 % (0-10); Hypochromia 1+; Lymphocytes 11 % (20-55); Microcytosis 1+; Nucleated Red Blood Cells 1 (0-5); Total Cells Counted 100
[2021-11-07 04:00] LABS: Calcium 8.4 MG/DL (8.5-10.1); Potassium 3.9 MMOL/L (3.5-5.1)
[2021-11-07 04:22] LABS: ABG Base Excess 0.7 MMOL/L (-2.5-2.5); ABG HCO3 25.1 MMOL/L (20-26); ABG Oxygen Saturation 99.5 % (95-100); ABG PCO2 32.9 MM HG (35-48); ABG PH 7.473 (7.35-7.45); ABG TCO2 22.6 MMOL/L (23-27)
[2021-11-07] MEDS: INSULIN REGULAR 100 UNIT/ML SUBCUT SCH ×3 (05:34→18:15)
[2021-11-07] MEDS: CEFEPIME 1,000 MG in SODIUM CHLORIDE 0.9% 100 ML IV SCH (09:19)
[2021-11-07] MEDS: PANTOPRAZOLE 40 MG VIAL IV SCH (09:22)
[2021-11-07] MEDS: INSULIN GLARGINE 100 UNIT/ML SUBCUT SCH (09:23)
[2021-11-07] MEDS: LACOSAMIDE INJ 200 MG in SODIUM CHLORIDE 0.9% 50 ML IV SCH ×2 (09:24→20:46)
[2021-11-07] MEDS: VALPROIC ACID INJ 750 MG in SODIUM CHLORIDE 0.9% 100 ML IV SCH ×2 (09:24→16:39)
[2021-11-07] MEDS ORDERED: SODIUM CHLORIDE 0.9% 500 ML IV ONE (09:30)
[2021-11-07] MEDS: METOCLOPRAMIDE 10 MG/2 ML VIAL IV SCH ×2 (14:06→19:03)
[2021-11-07] MEDS: DILTIAZEM 60 MG TABLET PO SCH ×2 (14:06→17:51)
[2021-11-07] MEDS: HEPARIN DRIP 25,000 UNITS/500 ML PREMIX IV SCH (14:07)
[2021-11-07 15:51] LABS: Levetiracetam (Keppra) 50.6 mcg/mL
[2021-11-07] MEDS: MENTHOL/ZINC OXIDE OINT 71 GM JAR TOP SCH ×2 (16:38→20:46)
[2021-11-07] MEDS ORDERED: METOPROLOL TARTRATE 5 MG/5 ML VIAL IV ONE (16:49)
[2021-11-07] MEDS: carvediloL 12.5 MG TABLET PO SCH (17:51)
[2021-11-07] MEDS: ATORVASTATIN 40 MG TABLET PO SCH (20:46)
[2021-11-07] MEDS ORDERED: VANCOMYCIN INJ 750 MG in SODIUM CHLORIDE 0.9% 250 ML IV ONE (21:00)
[2021-11-07] MEDS: ACETAMINOPHEN 325 MG TABLET PO PRN (21:40)
[2021-11-08] MEDS: ALBUTEROL/IPRATROPIUM 3 ML NEB RESP TX SCH ×4 (00:14→19:31)
[2021-11-08] MEDS: VALPROIC ACID INJ 750 MG in SODIUM CHLORIDE 0.9% 100 ML IV SCH ×4 (00:33→23:58)
[2021-11-08] MEDS: METOCLOPRAMIDE 10 MG/2 ML VIAL IV SCH ×5 (00:34→23:56)
[2021-11-08] MEDS: INSULIN REGULAR 100 UNIT/ML SUBCUT SCH ×4 (00:34→18:40)
[2021-11-08] MEDS: DILTIAZEM 60 MG TABLET PO SCH ×5 (00:34→23:55)
[2021-11-08 04:09] LABS: Basophils % 0.1 % (0.0-0.8); Eosinophils # 0.1 10*3/uL (0.0-0.87); Eosinophils % 0.5 % (0.00-10.9); Hematocrit 23.2 VOL% (35.7-47.0); Hemoglobin 7.4 GM/DL (12.0-16.0); Immature Granulocytes % 12.9 %; Immature Granulocytes Absolute 3.57 #; Lymphocytes % 7.1 % (21.3-54.2); Mean Corpuscular HGB Conc 31.9 GM/DL (32-36); Mean Corpuscular Volume 99.6 FL (87-102); Mean Platelet Volume 10.1 FL (9.6-12.0); Monocytes # 3.9 10*3/uL (0.11-0.8); Monocytes % 14.2 % (1.7-12.7); NRBC # 0.24 10*3/uL; Neutrophils % 65.2 % (38.7-73.9); Platelet Count 132 T/CUMM (130-400); Red Blood Count 2.33 MC/CUMM (3.8-5.5); Red Cell Distribution Width 17.5 % (9.3-17.3); White Blood Count 27.6 T/CUMM (4-12)
[2021-11-08 04:26] LABS: Band Neutrophils 5 % (0-10); Lymphocytes 12 % (20-55); Nucleated Red Blood Cells 1 (0-5); Platelet Estimate Adequate; Total Cells Counted 100
[2021-11-08 05:14] LABS: Calcium 7.9 MG/DL (8.5-10.1)
[2021-11-08 05:33] LABS: Arterial Base Excess iSTAT 2 MMOL/L (-2.5-2.5); Arterial Bicarbonate iSTAT 26.2 MMOL/L (20-26); Arterial O2 Saturation iSTAT 89 % (95-100); Arterial PCO2 iSTAT 37 MM HG (35-48); Arterial PO2 iSTAT 54 MM HG (80-95); Arterial Total CO2 iSTAT 27 MMO/L (23-27); Arterial pH iSTAT 7.453 (7.35-7.45)
[2021-11-08] MEDS: carvediloL 12.5 MG TABLET PO SCH ×2 (08:28→17:59)
[2021-11-08] MEDS: INSULIN GLARGINE 100 UNIT/ML SUBCUT SCH (08:29)
[2021-11-08] MEDS: PANTOPRAZOLE 40 MG VIAL IV SCH (08:32)
[2021-11-08] MEDS: MENTHOL/ZINC OXIDE OINT 71 GM JAR TOP SCH ×2 (08:32→21:47)
[2021-11-08] MEDS: CEFEPIME 1,000 MG in SODIUM CHLORIDE 0.9% 100 ML IV SCH (09:30)
[2021-11-08] MEDS ORDERED: ROCURONIUM 50 MG/5 ML VIAL IV ONE (10:35)
[2021-11-08] MEDS ORDERED: MIDAZOLAM 2 MG/2 ML VIAL ONE (10:35)
[2021-11-08] MEDS ORDERED: PHENYLEPHRINE 1 MG/10 ML SYRINGE IV ONE (10:37)
[2021-11-08] MEDS: LACOSAMIDE INJ 200 MG in SODIUM CHLORIDE 0.9% 50 ML IV SCH ×2 (10:44→21:09)
[2021-11-08] MEDS ORDERED: BUPIVACAINE MPF 0.25% 30 ML VIAL ONE (11:33)
[2021-11-08] MEDS ORDERED: LIDOCAINE 1%/EPI INJ 20 ML VIAL ONE (11:33)
[2021-11-08] MEDS: SODIUM CHLORIDE 0.9% 250 ML IV SCH (12:14)
[2021-11-08] MEDS: HEPARIN DRIP 25,000 UNITS/500 ML PREMIX IV SCH (15:40)
[2021-11-08] MEDS: ATORVASTATIN 40 MG TABLET PO SCH (21:09)
[2021-11-09] MEDS: ALBUTEROL/IPRATROPIUM 3 ML NEB RESP TX SCH ×4 (00:08→20:19)
[2021-11-09] MEDS: INSULIN REGULAR 100 UNIT/ML SUBCUT SCH ×4 (00:41→18:12)
[2021-11-09] MEDS: SODIUM CHLORIDE 0.9% 250 ML IV SCH ×2 (02:58→13:01)
[2021-11-09 03:57] LABS: Arterial Base Excess iSTAT 1 MMOL/L (-2.5-2.5); Arterial Bicarbonate iSTAT 24.9 MMOL/L (20-26); Arterial O2 Saturation iSTAT 100 % (95-100); Arterial PCO2 iSTAT 34 MM HG (35-48); Arterial PO2 iSTAT 188 MM HG (80-95); Arterial Total CO2 iSTAT 26 MMO/L (23-27); Arterial pH iSTAT 7.468 (7.35-7.45)
[2021-11-09 04:14] LABS: Basophils % 0.1 % (0.0-0.8); Eosinophils # 0.1 10*3/uL (0.0-0.87); Eosinophils % 0.3 % (0.00-10.9); Hematocrit 22.4 VOL% (35.7-47.0); Hemoglobin 7.1 GM/DL (12.0-16.0); Immature Granulocytes % 11.6 %; Immature Granulocytes Absolute 2.68 #; Lymphocytes # 1.8 10*3/uL (1.4-4.0); Lymphocytes % 7.6 % (21.3-54.2); Mean Corpuscular HGB Conc 31.7 GM/DL (32-36); Mean Corpuscular Volume 99.6 FL (87-102); Mean Platelet Volume 10.6 FL (9.6-12.0); Monocytes % 12.9 % (1.7-12.7); NRBC # 0.11 10*3/uL; Neutrophils % 67.5 % (38.7-73.9); Platelet Count 159 T/CUMM (130-400); Red Blood Count 2.25 MC/CUMM (3.8-5.5); Red Cell Distribution Width 17.2 % (9.3-17.3); White Blood Count 23.1 T/CUMM (4-12)
[2021-11-09 04:28] LABS: Calcium 8.2 MG/DL (8.5-10.1); Osmolality,Calculated 284.2 MOS/KG (273-304); Potassium 3.9 MMOL/L (3.5-5.1)
[2021-11-09 04:34] LABS: Band Neutrophils 1 % (0-10); Lymphocytes 14 % (20-55)
[2021-11-09 04:35] LABS: Platelet Estimate Adequate; Total Cells Counted 100
[2021-11-09] MEDS: METOCLOPRAMIDE 10 MG/2 ML VIAL IV SCH ×3 (08:39→18:12)
[2021-11-09] MEDS: PANTOPRAZOLE 40 MG VIAL IV SCH (08:39)
[2021-11-09] MEDS: MENTHOL/ZINC OXIDE OINT 71 GM JAR TOP SCH ×2 (08:40→22:12)
[2021-11-09] MEDS: VALPROIC ACID INJ 750 MG in SODIUM CHLORIDE 0.9% 100 ML IV SCH (08:40)
[2021-11-09] MEDS: INSULIN GLARGINE 100 UNIT/ML SUBCUT SCH (08:46)
[2021-11-09] MEDS: CEFEPIME 1,000 MG in SODIUM CHLORIDE 0.9% 100 ML IV SCH (09:56)
[2021-11-09] MEDS: LACOSAMIDE INJ 200 MG in SODIUM CHLORIDE 0.9% 50 ML IV SCH (09:58)
[2021-11-09] MEDS ORDERED: MIDAZOLAM 2 MG/2 ML VIAL ONE (12:07)
[2021-11-09] MEDS ORDERED: LIDOCAINE 2% 5 ML VIAL ONE (12:41)
[2021-11-09] MEDS ORDERED: ETOMIDATE 40 MG/20 ML VIAL IV ONE (12:41)
[2021-11-09] MEDS ORDERED: DEXTROSE 50% 25 GM/50 ML SYRINGE IV PRN (13:00)
[2021-11-09] MEDS: DILTIAZEM 60 MG TABLET PO SCH ×3 (13:17→18:11)
[2021-11-09] MEDS: carvediloL 12.5 MG TABLET PO SCH ×2 (13:35→17:54)
[2021-11-09] MEDS: HEPARIN DRIP 25,000 UNITS/500 ML PREMIX IV SCH (14:45)
[2021-11-09] MEDS: VALPROIC ACID 250 MG/5 ML UDCUP PER TUBE SCH ×2 (14:46→21:05)
[2021-11-09] MEDS: ATORVASTATIN 40 MG TABLET PO SCH (21:05)
[2021-11-09] MEDS: levETIRAcetam 500 MG/5 ML VIAL IV SCH (22:12)
[2021-11-09] MEDS: LACOSAMIDE 200 MG/20 ML VIAL IV SCH (22:13)
[2021-11-10] MEDS: METOCLOPRAMIDE 10 MG/2 ML VIAL IV SCH ×4 (00:04→17:53)
[2021-11-10] MEDS: DILTIAZEM 60 MG TABLET PO SCH ×4 (00:07→17:53)
[2021-11-10] MEDS: ALBUTEROL/IPRATROPIUM 3 ML NEB RESP TX SCH ×4 (00:10→20:05)
[2021-11-10] MEDS: INSULIN REGULAR 100 UNIT/ML SUBCUT SCH ×5 (00:20→23:38)
[2021-11-10] MEDS: SODIUM CHLORIDE 0.9% 250 ML IV SCH ×2 (03:36→15:37)
[2021-11-10 04:28] LABS: Arterial Base Excess iSTAT -1 MMOL/L (-2.5-2.5); Arterial Bicarbonate iSTAT 22.1 MMOL/L (20-26); Arterial O2 Saturation iSTAT 100 % (95-100); Arterial PCO2 iSTAT 31 MM HG (35-48); Arterial PO2 iSTAT 167 MM HG (80-95); Arterial Total CO2 iSTAT 23 MMO/L (23-27); Arterial pH iSTAT 7.468 (7.35-7.45)
[2021-11-10 06:03] LABS: Basophils # 0.2 10*3/uL (0.0-0.2); Basophils % 0.8 % (0.0-0.8); Eosinophils # 0.1 10*3/uL (0.0-0.87); Eosinophils % 0.4 % (0.00-10.9); Hematocrit 20.9 VOL% (35.7-47.0); Hemoglobin 6.6 GM/DL (12.0-16.0); Immature Granulocytes % 9.2 %; Immature Granulocytes Absolute 1.76 #; Lymphocytes # 1.5 10*3/uL (1.4-4.0); Lymphocytes % 8.1 % (21.3-54.2); Mean Corpuscular HGB Conc 31.6 GM/DL (32-36); Mean Platelet Volume 10.5 FL (9.6-12.0); Monocytes # 2.5 10*3/uL (0.11-0.8); Monocytes % 13.3 % (1.7-12.7); NRBC # 0.04 10*3/uL; Neutrophils % 68.2 % (38.7-73.9); Platelet Count 170 T/CUMM (130-400); Red Blood Count 2.09 MC/CUMM (3.8-5.5); Red Cell Distribution Width 17.1 % (9.3-17.3); White Blood Count 19.1 T/CUMM (4-12)
[2021-11-10 06:26] LABS: Anisocytosis 1+; Band Neutrophils 26 % (0-10); Burr Cells Few; Eosinophils 1 % (0-10); Lymphocytes 9 % (20-55); Macrocytosis 1+; Metamyelocytes 3 %; Myelocytes 5 %; Platelet Estimate Normal; Total Cells Counted 100
[2021-11-10 06:33] LABS: Calcium 7.4 MG/DL (8.5-10.1); Osmolality,Calculated 288.4 MOS/KG (273-304); Potassium 4.2 MMOL/L (3.5-5.1)
[2021-11-10] MEDS ORDERED: SODIUM CHLORIDE 0.9% 1,000 ML IV PRN (07:36)
[2021-11-10] MEDS: INSULIN GLARGINE 100 UNIT/ML SUBCUT SCH (09:18)
[2021-11-10] MEDS: VALPROIC ACID 250 MG/5 ML UDCUP PER TUBE SCH ×3 (09:19→21:12)
[2021-11-10] MEDS: carvediloL 12.5 MG TABLET PO SCH ×2 (09:19→17:53)
[2021-11-10] MEDS: LACOSAMIDE 200 MG/20 ML VIAL IV SCH ×2 (09:25→21:13)
[2021-11-10] MEDS: PANTOPRAZOLE 40 MG VIAL IV SCH (09:28)
[2021-11-10] MEDS: CEFEPIME IV SCH (10:32)
[2021-11-10] MEDS: SODIUM CHLORIDE 0.9% IV SCH (10:32)
[2021-11-10] MEDS: levETIRAcetam 500 MG/5 ML VIAL IV SCH ×2 (10:38→21:13)
[2021-11-10] MEDS: MENTHOL/ZINC OXIDE OINT 71 GM JAR TOP SCH ×2 (10:39→21:12)
[2021-11-10] MEDS: HEPARIN DRIP 25,000 UNITS/500 ML PREMIX IV SCH (13:16)
[2021-11-10] MEDS: ATORVASTATIN 40 MG TABLET PO SCH (21:13)
[2021-11-11] MEDS: METOCLOPRAMIDE 10 MG/2 ML VIAL IV SCH ×5 (00:02→23:59)
[2021-11-11] MEDS: DILTIAZEM 60 MG TABLET PO SCH ×5 (00:03→23:58)
[2021-11-11] MEDS: ALBUTEROL/IPRATROPIUM 3 ML NEB RESP TX SCH ×4 (01:27→18:52)
[2021-11-11] MEDS: SODIUM CHLORIDE 0.9% 250 ML IV SCH ×2 (03:05→14:04)
[2021-11-11 04:08] LABS: Arterial Base Excess iSTAT -2 MMOL/L (-2.5-2.5); Arterial Bicarbonate iSTAT 22.9 MMOL/L (20-26); Arterial O2 Saturation iSTAT 100 % (95-100); Arterial PCO2 iSTAT 36 MM HG (35-48); Arterial PO2 iSTAT 196 MM HG (80-95); Arterial Total CO2 iSTAT 24 MMO/L (23-27); Arterial pH iSTAT 7.409 (7.35-7.45)
[2021-11-11 04:17] LABS: Basophils # 0.1 10*3/uL (0.0-0.2); Basophils % 0.5 % (0.0-0.8); Eosinophils # 0.1 10*3/uL (0.0-0.87); Eosinophils % 0.3 % (0.00-10.9); Hematocrit 20.4 VOL% (35.7-47.0); Lymphocytes # 1.5 10*3/uL (1.4-4.0); Lymphocytes % 7.6 % (21.3-54.2); Mean Corpuscular HGB Conc 30.9 GM/DL (32-36); Mean Platelet Volume 10.2 FL (9.6-12.0); Monocytes # 3.1 10*3/uL (0.11-0.8); Monocytes % 15.6 % (1.7-12.7); Neutrophils % 67.9 % (38.7-73.9); Platelet Count 191 T/CUMM (130-400); Red Blood Count 2.04 MC/CUMM (3.8-5.5); White Blood Count 20.1 T/CUMM (4-12)
[2021-11-11 04:22] LABS: Hemoglobin 6.3 GM/DL (12.0-16.0)
[2021-11-11 04:24] LABS: PT Patient Result 10.9 SECS (10.5-12.0)
[2021-11-11 04:31] LABS: Calcium 7.5 MG/DL (8.5-10.1); Osmolality,Calculated 294.2 MOS/KG (273-304); Potassium 4.1 MMOL/L (3.5-5.1)
[2021-11-11 04:48] LABS: Lymphocytes 9 % (20-55)
[2021-11-11 05:06] LABS: Platelet Estimate Adequate
[2021-11-11] MEDS: INSULIN REGULAR 100 UNIT/ML SUBCUT SCH ×4 (06:09→23:59)
[2021-11-11] MEDS: carvediloL 12.5 MG TABLET PO SCH ×2 (08:19→17:41)
[2021-11-11] MEDS: LACOSAMIDE 200 MG/20 ML VIAL IV SCH ×2 (08:19→20:42)
[2021-11-11] MEDS: levETIRAcetam 500 MG/5 ML VIAL IV SCH ×2 (08:19→20:42)
[2021-11-11] MEDS: PANTOPRAZOLE 40 MG VIAL IV SCH (08:20)
[2021-11-11] MEDS: VALPROIC ACID 250 MG/5 ML UDCUP PER TUBE SCH ×3 (08:20→20:41)
[2021-11-11] MEDS: INSULIN GLARGINE 100 UNIT/ML SUBCUT SCH (08:20)
[2021-11-11] MEDS: MENTHOL/ZINC OXIDE OINT 71 GM JAR TOP SCH ×2 (08:40→20:41)
[2021-11-11] MEDS: SODIUM CHLORIDE 0.9% IV SCH (09:19)
[2021-11-11] MEDS: CEFEPIME IV SCH (09:19)
[2021-11-11] MEDS: HEPARIN DRIP 25,000 UNITS/500 ML PREMIX IV SCH (12:28)
[2021-11-11] MEDS: ATORVASTATIN 40 MG TABLET PO SCH (20:41)
[2021-11-12] MEDS: ALBUTEROL/IPRATROPIUM 3 ML NEB RESP TX SCH ×4 (00:04→19:51)
[2021-11-12] MEDS: SODIUM CHLORIDE 0.9% 250 ML IV SCH ×2 (02:32→14:29)
[2021-11-12 03:49] LABS: Arterial Base Excess iSTAT -3 MMOL/L (-2.5-2.5); Arterial Bicarbonate iSTAT 21.3 MMOL/L (20-26); Arterial O2 Saturation iSTAT 100 % (95-100); Arterial PCO2 iSTAT 33 MM HG (35-48); Arterial PO2 iSTAT 190 MM HG (80-95); Arterial Total CO2 iSTAT 22 MMO/L (23-27); Arterial pH iSTAT 7.418 (7.35-7.45)
[2021-11-12 05:13] LABS: Basophils # 0.1 10*3/uL (0.0-0.2); Basophils % 0.5 % (0.0-0.8); Eosinophils # 0.1 10*3/uL (0.0-0.87); Eosinophils % 0.4 % (0.00-10.9); Hematocrit 19.5 VOL% (35.7-47.0); Immature Granulocytes % 6.5 %; Immature Granulocytes Absolute 1.28 #; Lymphocytes # 1.3 10*3/uL (1.4-4.0); Lymphocytes % 6.6 % (21.3-54.2); Mean Corpuscular HGB Conc 31.8 GM/DL (32-36); Mean Platelet Volume 10.2 FL (9.6-12.0); Platelet Count 215 T/CUMM (130-400); Red Blood Count 1.93 MC/CUMM (3.8-5.5); Red Cell Distribution Width 17.2 % (9.3-17.3); White Blood Count 19.7 T/CUMM (4-12)
[2021-11-12 05:16] LABS: Hemoglobin 6.2 GM/DL (12.0-16.0)
[2021-11-12 05:32] LABS: Albumin 1.3 G/DL (3.4-5.0); Bilirubin,Total 0.5 MG/DL (0.20-1.00); Calcium 7.6 MG/DL (8.5-10.1); Hypochromia Slight; Lymphocytes 10 % (20-55); Microcytosis Slight; Osmolality,Calculated 292.5 MOS/KG (273-304); Platelet Estimate Adequate; Potassium 4.4 MMOL/L (3.5-5.1); Total Cells Counted 100; Total Protein 7.2 G/DL (6.4-8.2)
[2021-11-12] MEDS: INSULIN REGULAR 100 UNIT/ML SUBCUT SCH ×4 (05:34→23:09)
[2021-11-12] MEDS: DILTIAZEM 60 MG TABLET PO SCH ×4 (05:34→23:09)
[2021-11-12] MEDS: METOCLOPRAMIDE 10 MG/2 ML VIAL IV SCH ×4 (05:34→23:08)
[2021-11-12 05:38] LABS: Phosphorous 6.7 MG/DL (2.5-4.9)
[2021-11-12] MEDS: carvediloL 12.5 MG TABLET PO SCH ×2 (08:01→18:04)
[2021-11-12] MEDS: INSULIN GLARGINE 100 UNIT/ML SUBCUT SCH (08:01)
[2021-11-12] MEDS: VALPROIC ACID 250 MG/5 ML UDCUP PER TUBE SCH ×3 (08:01→20:40)
[2021-11-12] MEDS: PANTOPRAZOLE 40 MG VIAL IV SCH (08:01)
[2021-11-12] MEDS: LACOSAMIDE 200 MG/20 ML VIAL IV SCH ×2 (08:02→20:39)
[2021-11-12] MEDS: MENTHOL/ZINC OXIDE OINT 71 GM JAR TOP SCH ×2 (08:02→20:38)
[2021-11-12] MEDS: levETIRAcetam 500 MG/5 ML VIAL IV SCH ×2 (08:02→20:39)
[2021-11-12] MEDS: SODIUM CHLORIDE 0.9% IV SCH (08:19)
[2021-11-12] MEDS: CEFEPIME IV SCH (08:19)
[2021-11-12] MEDS ORDERED: GENTAMICIN INJ 200 MG in SODIUM CHLORIDE 0.9% 100 ML IV ONE (09:00)
[2021-11-12] MEDS: HEPARIN DRIP 25,000 UNITS/500 ML PREMIX IV SCH (09:00)
[2021-11-12 12:45] LABS: PT Patient Result 11.4 SECS (10.5-12.0); Partial Thromboplastin Time 55.2 SECS (23.8-32.1)
[2021-11-12] MEDS ORDERED: LIDOCAINE 1%/EPI INJ 20 ML VIAL ONE (13:55)
[2021-11-12] MEDS ORDERED: BUPIVACAINE MPF 0.25% 30 ML VIAL ONE (13:55)
[2021-11-12] MEDS ORDERED: HEPARIN 5,000 UNIT/1 ML VIAL ONE (13:55)
[2021-11-12] MEDS ORDERED: ROCURONIUM 50 MG/5 ML VIAL IV ONE (14:01)
[2021-11-12] MEDS ORDERED: MIDAZOLAM 2 MG/2 ML VIAL ONE (14:01)
[2021-11-12] MEDS: ATORVASTATIN 40 MG TABLET PO SCH (20:40)
[2021-11-12] MEDS ORDERED: carvediloL 12.5 MG TABLET PO ONE (21:42)
[2021-11-12 21:45] LABS: PT Patient Result 11.4 SECS (10.5-12.0); Partial Thromboplastin Time 63.6 SECS (23.8-32.1)
[2021-11-13] MEDS ORDERED: ATROPINE 1 MG/10 ML SYRINGE ONE (00:10)
[2021-11-13] MEDS ORDERED: ATROPINE 1 MG/10 ML SYRINGE IV ONE (00:11)
[2021-11-13] MEDS ORDERED: EPINEPHrine 1 MG/10 ML SYRINGE IV ONE ×2 (00:17→12:32)
[2021-11-13] MEDS: DOPamine 800 MG/250 ML PREMIX IV PRN (00:21)
[2021-11-13] MEDS ORDERED: SODIUM BICARBONATE 50 MEQ/50 ML VIAL IV ONE ×3 (00:25→01:07)
[2021-11-13] MEDS: ALBUTEROL/IPRATROPIUM 3 ML NEB RESP TX SCH ×4 (00:45→20:15)
[2021-11-13 00:48] LABS: ABG Base Excess -3.7 MMOL/L (-2.5-2.5); ABG HCO3 21.3 MMOL/L (20-26); ABG Oxygen Saturation 99.6 % (95-100); ABG PCO2 33.7 MM HG (35-48); ABG PH 7.396 (7.35-7.45); ABG TCO2 19.7 MMOL/L (23-27)
[2021-11-13 00:50] LABS: Basophils # 0.2 10*3/uL (0.0-0.2); Basophils % 0.7 % (0.0-0.8); Eosinophils # 0.1 10*3/uL (0.0-0.87); Eosinophils % 0.3 % (0.00-10.9); Hematocrit 20.5 VOL% (35.7-47.0); Immature Granulocytes % 4.7 %; Immature Granulocytes Absolute 1.08 #; Lymphocytes # 3.1 10*3/uL (1.4-4.0); Lymphocytes % 13.6 % (21.3-54.2); Mean Corpuscular HGB Conc 31.2 GM/DL (32-36); Mean Corpuscular Volume 100.5 FL (87-102); Mean Platelet Volume 10.4 FL (9.6-12.0); Monocytes # 2.8 10*3/uL (0.11-0.8); Monocytes % 12.1 % (1.7-12.7); Neutrophils % 68.6 % (38.7-73.9); Platelet Count 271 T/CUMM (130-400); Red Blood Count 2.04 MC/CUMM (3.8-5.5); Red Cell Distribution Width 17.2 % (9.3-17.3); White Blood Count 22.8 T/CUMM (4-12)
[2021-11-13] MEDS ORDERED: DOPamine 800 MG/250 ML PREMIX IV ONE (00:58)
[2021-11-13] MEDS ORDERED: EPINEPHrine 1 MG/10 ML SYRINGE ONE ×2 (00:58→12:26)
[2021-11-13 00:59] LABS: Hemoglobin 6.4 GM/DL (12.0-16.0)
[2021-11-13 01:00] LABS: INR 1.1; PT Patient Result 11.8 SECS (10.5-12.0)
[2021-11-13 01:08] LABS: Albumin 1.2 G/DL (3.4-5.0); Bilirubin,Total 0.7 MG/DL (0.20-1.00); Calcium 7.3 MG/DL (8.5-10.1); Osmolality,Calculated 294.5 MOS/KG (273-304); Potassium 4.2 MMOL/L (3.5-5.1); Total Protein 7.4 G/DL (6.4-8.2)
[2021-11-13] MEDS ORDERED: SODIUM BICARBONATE 50 MEQ/50 ML SYRINGE IV ONE (01:08)
[2021-11-13] MEDS ORDERED: SODIUM CHLORIDE 0.9% 1,000 ML IV PRN ×2 (01:09→10:08)
[2021-11-13 01:12] LABS: Calcium 7.3 MG/DL (8.5-10.1); Osmolality,Calculated 292.7 MOS/KG (273-304); Potassium 4.2 MMOL/L (3.5-5.1)
[2021-11-13] MEDS: VASOPRESSIN 100 UNITS in SODIUM CHLORIDE 0.9% 95 ML IV SCH ×3 (01:28→17:47)
[2021-11-13 01:30] LABS: Lymphocytes 15 % (20-55); Platelet Estimate Adequate; Total Cells Counted 100
[2021-11-13] MEDS ORDERED: NOREPINEPHRINE 4 MG/4 ML VIAL IV ONE (01:31)
[2021-11-13] MEDS ORDERED: NOREPINEPHRINE 16 MG in SODIUM CHLORIDE 0.9% 234 ML IV PRN (01:35)
[2021-11-13] MEDS ORDERED: GLUCAGON 1 MG VIAL IV ONE (02:00)
[2021-11-13] MEDS: HYDROCORTISONE 100 MG VIAL IV SCH ×3 (03:06→18:12)
[2021-11-13 04:34] LABS: ABG Base Excess -6.6 MMOL/L (-2.5-2.5); ABG Oxygen Saturation 99.5 % (95-100); ABG PH 7.343 (7.35-7.45); ABG TCO2 17.7 MMOL/L (23-27)
[2021-11-13 04:45] LABS: Basophils # 0.2 10*3/uL (0.0-0.2); Basophils % 0.6 % (0.0-0.8); Eosinophils # 0.1 10*3/uL (0.0-0.87); Eosinophils % 0.2 % (0.00-10.9); Hematocrit 20.1 VOL% (35.7-47.0); Immature Granulocytes % 5.2 %; Immature Granulocytes Absolute 1.39 #; Lymphocytes # 1.1 10*3/uL (1.4-4.0); Lymphocytes % 4.2 % (21.3-54.2); Mean Corpuscular HGB Conc 31.3 GM/DL (32-36); Mean Platelet Volume 10.3 FL (9.6-12.0); Monocytes # 3.8 10*3/uL (0.11-0.8); Monocytes % 14.4 % (1.7-12.7); Neutrophils % 75.4 % (38.7-73.9); Platelet Count 286 T/CUMM (130-400); Red Blood Count 2.01 MC/CUMM (3.8-5.5); Red Cell Distribution Width 17.1 % (9.3-17.3); White Blood Count 26.7 T/CUMM (4-12)
[2021-11-13 04:47] LABS: Hemoglobin 6.3 GM/DL (12.0-16.0)
[2021-11-13 04:59] LABS: Albumin 1.3 G/DL (3.4-5.0); Bilirubin,Total 0.7 MG/DL (0.20-1.00); Calcium 7.4 MG/DL (8.5-10.1); Osmolality,Calculated 293.7 MOS/KG (273-304); Potassium 5.1 MMOL/L (3.5-5.1); Total Protein 7.7 G/DL (6.4-8.2)
[2021-11-13 05:04] LABS: Band Neutrophils 1 % (0-10); Eosinophils 1 % (0-10); Lymphocytes 8 % (20-55); Metamyelocytes 1 %; Total Cells Counted 100
[2021-11-13 05:05] LABS: Macrocytosis 1+
[2021-11-13 05:06] LABS: Platelet Estimate Normal
[2021-11-13] MEDS: INSULIN REGULAR 100 UNIT/ML SUBCUT SCH ×4 (05:14→23:45)
[2021-11-13] MEDS: METOCLOPRAMIDE 10 MG/2 ML VIAL IV SCH ×4 (06:09→23:45)
[2021-11-13] MEDS: VALPROIC ACID 250 MG/5 ML UDCUP PER TUBE SCH ×3 (09:14→20:40)
[2021-11-13] MEDS: INSULIN GLARGINE 100 UNIT/ML SUBCUT SCH (09:15)
[2021-11-13] MEDS: MENTHOL/ZINC OXIDE OINT 71 GM JAR TOP SCH ×2 (09:15→20:40)
[2021-11-13] MEDS: PANTOPRAZOLE 40 MG VIAL IV SCH (09:23)
[2021-11-13] MEDS: levETIRAcetam 500 MG/5 ML VIAL IV SCH ×2 (09:38→20:40)
[2021-11-13] MEDS: LACOSAMIDE 200 MG/20 ML VIAL IV SCH ×2 (09:49→20:39)
[2021-11-13] MEDS: CEFEPIME IV SCH (10:07)
[2021-11-13] MEDS: SODIUM CHLORIDE 0.9% IV SCH (10:07)
[2021-11-13 12:50] LABS: ABG Base Excess -14.2 MMOL/L (-2.5-2.5); ABG HCO3 13.3 MMOL/L (20-26); ABG Oxygen Saturation 98.2 % (95-100); ABG PH 7.252 (7.35-7.45); ABG TCO2 11.3 MMOL/L (23-27)
[2021-11-13] MEDS: HEPARIN DRIP 25,000 UNITS/500 ML PREMIX IV SCH ×2 (13:05→21:35)
[2021-11-13 13:07] LABS: Calcium 7.2 MG/DL (8.5-10.1); Osmolality,Calculated 289.8 MOS/KG (273-304)
[2021-11-13 13:09] LABS: Potassium 6.3 MMOL/L (3.5-5.1)
[2021-11-13] MEDS: ATORVASTATIN 40 MG TABLET PO SCH (20:40)
[2021-11-14] MEDS: ALBUTEROL/IPRATROPIUM 3 ML NEB RESP TX SCH ×4 (00:05→19:38)
[2021-11-14] MEDS: VASOPRESSIN 100 UNITS in SODIUM CHLORIDE 0.9% 95 ML IV SCH ×3 (02:01→19:24)
[2021-11-14] MEDS: HYDROCORTISONE 100 MG VIAL IV SCH ×3 (02:08→20:34)
[2021-11-14 03:50] LABS: Basophils # 0.1 10*3/uL (0.0-0.2); Basophils % 0.6 % (0.0-0.8); Hematocrit 25.7 VOL% (35.7-47.0); Hemoglobin 8.5 GM/DL (12.0-16.0); Immature Granulocytes % 4.3 %; Immature Granulocytes Absolute 0.99 #; Lymphocytes # 1.2 10*3/uL (1.4-4.0); Lymphocytes % 5.1 % (21.3-54.2); Mean Corpuscular HGB Conc 33.1 GM/DL (32-36); Mean Corpuscular Volume 95.5 FL (87-102); Mean Platelet Volume 10.2 FL (9.6-12.0); Monocytes # 2.1 10*3/uL (0.11-0.8); Platelet Count 258 T/CUMM (130-400); Red Blood Count 2.69 MC/CUMM (3.8-5.5); Red Cell Distribution Width 17.2 % (9.3-17.3)
[2021-11-14 03:55] LABS: ABG HCO3 19.5 MMOL/L (20-26); ABG Oxygen Saturation 99.5 % (95-100); ABG PCO2 30.5 MM HG (35-48); ABG PH 7.384 (7.35-7.45); ABG TCO2 16.7 MMOL/L (23-27)
[2021-11-14 04:11] LABS: Band Neutrophils 2 % (0-10); Lymphocytes 3 % (20-55); Platelet Estimate Adequate; Total Cells Counted 100
[2021-11-14 04:16] LABS: Albumin 1.5 G/DL (3.4-5.0); Bilirubin,Total 0.8 MG/DL (0.20-1.00); Osmolality,Calculated 297.5 MOS/KG (273-304); Potassium 4.7 MMOL/L (3.5-5.1); Total Protein 8.1 G/DL (6.4-8.2)
[2021-11-14] MEDS: METOCLOPRAMIDE 10 MG/2 ML VIAL IV SCH ×3 (05:34→19:14)
[2021-11-14] MEDS: INSULIN REGULAR 100 UNIT/ML SUBCUT SCH ×3 (05:36→18:35)
[2021-11-14] MEDS: VALPROIC ACID 250 MG/5 ML UDCUP PER TUBE SCH ×3 (09:23→20:30)
[2021-11-14] MEDS: INSULIN GLARGINE 100 UNIT/ML SUBCUT SCH (09:24)
[2021-11-14] MEDS: PANTOPRAZOLE 40 MG VIAL IV SCH (09:25)
[2021-11-14] MEDS: MENTHOL/ZINC OXIDE OINT 71 GM JAR TOP SCH ×2 (09:26→20:30)
[2021-11-14] MEDS: levETIRAcetam 500 MG/5 ML VIAL IV SCH ×2 (09:30→20:30)
[2021-11-14] MEDS ORDERED: GENTAMICIN INJ 200 MG in SODIUM CHLORIDE 0.9% 100 ML IV ONE (09:30)
[2021-11-14] MEDS: LACOSAMIDE 200 MG/20 ML VIAL IV SCH ×2 (09:34→20:32)
[2021-11-14] MEDS: CEFEPIME 1,000 MG in SODIUM CHLORIDE 0.9% 100 ML IV SCH (09:37)
[2021-11-14] MEDS ORDERED: ATROPINE 1 MG/10 ML SYRINGE ONE (10:50)
[2021-11-14] MEDS: DOPamine 800 MG/250 ML PREMIX IV PRN (10:50)
[2021-11-14] MEDS: HEPARIN DRIP 25,000 UNITS/500 ML PREMIX IV SCH (19:15)
[2021-11-14] MEDS: ATORVASTATIN 40 MG TABLET PO SCH (20:30)
[2021-11-15] MEDS: INSULIN REGULAR 100 UNIT/ML SUBCUT SCH ×3 (00:47→13:12)
[2021-11-15] MEDS: METOCLOPRAMIDE 10 MG/2 ML VIAL IV SCH ×3 (00:47→12:50)
[2021-11-15] MEDS: DOPamine 800 MG/250 ML PREMIX IV PRN (01:27)
[2021-11-15] MEDS: ALBUTEROL/IPRATROPIUM 3 ML NEB RESP TX SCH ×3 (02:15→12:26)
[2021-11-15] MEDS: VASOPRESSIN 100 UNITS in SODIUM CHLORIDE 0.9% 95 ML IV SCH ×2 (02:32→10:50)
[2021-11-15 03:55] LABS: ABG Base Excess -9.4 MMOL/L (-2.5-2.5); ABG HCO3 16.9 MMOL/L (20-26); ABG Oxygen Saturation 98.8 % (95-100); ABG PCO2 26.1 MM HG (35-48); ABG PH 7.363 (7.35-7.45); ABG TCO2 13.6 MMOL/L (23-27)
[2021-11-15 03:57] LABS: Basophils # 0.1 10*3/uL (0.0-0.2); Basophils % 0.4 % (0.0-0.8); Hematocrit 27.5 VOL% (35.7-47.0); Immature Granulocytes % 4.3 %; Immature Granulocytes Absolute 0.77 #; Lymphocytes # 1.4 10*3/uL (1.4-4.0); Lymphocytes % 7.9 % (21.3-54.2); Mean Corpuscular HGB Conc 32.7 GM/DL (32-36); Mean Corpuscular Volume 96.5 FL (87-102); Mean Platelet Volume 9.8 FL (9.6-12.0); Monocytes # 1.6 10*3/uL (0.11-0.8); Monocytes % 8.6 % (1.7-12.7); NRBC # 0.02 10*3/uL; Neutrophils % 78.8 % (38.7-73.9); Platelet Count 250 T/CUMM (130-400); Red Blood Count 2.85 MC/CUMM (3.8-5.5); Red Cell Distribution Width 16.9 % (9.3-17.3); White Blood Count 18.1 T/CUMM (4-12)
[2021-11-15 04:14] LABS: Calcium 6.3 MG/DL (8.5-10.1); Osmolality,Calculated 297.7 MOS/KG (273-304); Potassium 5.1 MMOL/L (3.5-5.1)
[2021-11-15 04:17] LABS: Lymphocytes 8 % (20-55); Platelet Estimate Adequate; Total Cells Counted 100
[2021-11-15] MEDS: LACOSAMIDE 200 MG/20 ML VIAL IV SCH (08:43)
[2021-11-15] MEDS: VALPROIC ACID 250 MG/5 ML UDCUP PER TUBE SCH ×2 (08:44→14:46)
[2021-11-15] MEDS: HYDROCORTISONE 100 MG VIAL IV SCH (08:44)
[2021-11-15] MEDS: PANTOPRAZOLE 40 MG VIAL IV SCH (08:44)
[2021-11-15] MEDS: INSULIN GLARGINE 100 UNIT/ML SUBCUT SCH (08:45)
[2021-11-15] MEDS: levETIRAcetam 500 MG/5 ML VIAL IV SCH (08:45)
[2021-11-15] MEDS: MENTHOL/ZINC OXIDE OINT 71 GM JAR TOP SCH (08:45)
[2021-11-15] MEDS: CEFEPIME 1,000 MG in SODIUM CHLORIDE 0.9% 100 ML IV SCH (09:00)
[2021-11-15] MEDS ORDERED: LORazepam 2 MG/1 ML VIAL IV PRN (13:03)
[2021-11-15] MEDS ORDERED: MORPHINE 2 MG/1 ML SYRINGE IV PRN (13:03)
[2021-11-15] MEDS: HEPARIN DRIP 25,000 UNITS/500 ML PREMIX IV SCH (13:12)
[2021-11-15 15:11] LABS: Levetiracetam (Keppra) 62.4 mcg/mL
[2021-11-15 23:55] VITALS: BP 96/28
== END 2021-11-15 23:10 | disposition expired | DRG 100 ==
LOC: N.5E → N.ICU 10-28 09:08 → SUATTDRO 10-28 10:17 → N.ICU 11-01 16:21 → N.TELEN 11-15 19:52
PROVIDERS: ADMIT Family Medicine; ATTEND Internal Medicine
PROC: EGDWPEG (ICD-10-PCS; 2021-11-09 08:05)